=== PATIENT | female | born 1945 | race Caucasian/White ===

== ENCOUNTER → 2018-09-06 12:20 | Outpatient (CLI) | payer MEDICARE, SELFPAY ==
--- NOTE | 2018-09-06 12:34 | BI_ITS ---
MAMMOGRAPHY - BILATERAL SCREENING REASON FOR EXAM: Female, 73 years old. Routine annual screening examination. PERTINENT HISTORY: Sister with breast cancer. TECHNIQUE: Digital bilateral breast cody (3D mammographic acquisition) in the CC and MLO projections. 2-D mediolateral oblique (MLO) and craniocaudad (CC) views of both breasts were obtained. CAD: Full Field Digital Mammography with Computer Added Detection was performed. COMPARISON: Comparison is made with prior study dated June 16, 2016 and May 21, 2015. FINDINGS: Breast Composition: There are scattered areas of fibroglandular density. There are no dominant masses or suspicious calcifications. Stable small bilateral benign appearing axillary lymph nodes. No other significant abnormalities are identified. There has been no significant change since the prior study. BI/SCREENING MAMM (CAD), BILAT IMPRESSION: Stable bilateral screening mammogram. Yearly follow-up mammogram recommended. (A) ASSESSMENT CATEGORY: BIRADS Category 2: Benign. A letter regarding these results will be sent to the patient by the facility within 30 days. Approximately 10% of breast cancers are not detected by mammography. A normal mammogram should not delay biopsy of a clinically suspicious abnormality. [id number] Electronically Signed: Biju Ovalle, at 15:07 EDT , Service support ,
== END ==
PROVIDERS: Family Provider Family Medicine; PCP Family Medicine; Referring Provider Family Medicine; Visit Provider Family Medicine
DX: Z12.31 Encounter for screening mammogram for malignant neoplasm of breast (principal)
CPT/HCPCS: 77063; 77067

== ENCOUNTER → 2019-02-02 11:02 | Outpatient (CLI) | payer MEDICARE, SELFPAY ==
[2019-02-02 13:09] LABS: AST(SGOT) 17 U/L (15-37); Alanine Aminotransfer ALT/SGPT 16 U/L (13-56); Cholesterol 184 mg/dL (200); High Density Lipoprotein 63 mg/dL; T4 Total, Thyroxin 11.5 ug/dL (4.8-13.9); Thyroid Stim Hormone (TSH) 1.79 uIU/mL (0.358-3.74); Triglycerides 124 mg/dL; Very Low Density Lipoprotein 25 mg/dL (5-40)
[2019-02-02 16:28] LABS: Hepatitis C Antibody Non-Reactive (Nonreactive)
== END ==
PROVIDERS: Family Provider Family Medicine; PCP Family Medicine; Referring Provider Family Medicine; Visit Provider Family Medicine
DX: E03.9 Hypothyroidism, unspecified (principal); E78.00 Pure hypercholesterolemia, unspecified
CPT/HCPCS: 36415; 80061; 84436; 84443; 84450; 84460; 86803

== ENCOUNTER → 2020-02-05 | Outpatient (CLI) | payer MEDICARE, SELFPAY ==
[2016-09-28 07:43] VITALS: BMI 27.6
[2020-02-05 13:43] LABS: AST(SGOT) 17 U/L (15-37); Alanine Aminotransfer ALT/SGPT 13 U/L (13-56); Cholesterol 182 mg/dL (200); High Density Lipoprotein 62 mg/dL; T4 Total, Thyroxin 10.2 ug/dL (4.8-13.9); Thyroid Stim Hormone (TSH) 1.62 uIU/mL (0.358-3.74); Triglycerides 163 mg/dL; Very Low Density Lipoprotein 33 mg/dL (5-40)
== END | disposition home or self-care (01) ==
LOC: MFPLAB 11:11
PROVIDERS: PCP Family Medicine; Referring Provider Family Medicine; Visit Provider Family Medicine
DX: E03.9 Hypothyroidism, unspecified (principal); E78.00 Pure hypercholesterolemia, unspecified
CPT/HCPCS: 36415; 80061; 84436; 84443; 84450; 84460

== ENCOUNTER → 2020-02-23 | Outpatient (CLI) | payer MEDICARE, SELFPAY ==
--- NOTE | 2020-02-23 11:01 | BI_ITS ---
MAMMOGRAPHY - BILATERAL SCREENING REASON FOR EXAM: Female, 74 years old. Routine annual screening examination. PERTINENT HISTORY: Sister with breast cancer. TECHNIQUE: Digital bilateral breast dian (3D mammographic acquisition) in the CC and MLO projections. 2-D mediolateral oblique (MLO) and craniocaudad (CC) views of both breasts were obtained. CAD: Full Field Digital Mammography with Computer Added Detection was performed. COMPARISON: Comparison is made with prior study dated 09/06/2018 and 06/16/2016. FINDINGS: Breast Composition: There are scattered areas of fibroglandular density. There are no dominant masses or suspicious calcifications. Stable benign-appearing small bilateral axillary lymph nodes. No other significant abnormalities are identified. There has been no significant change since the prior study. BI/SCREEN MAMM (CAD) W/DIAN BILAT IMPRESSION: Stable bilateral screening mammogram. Yearly follow-up mammogram recommended. (A) ASSESSMENT CATEGORY: BIRADS Category 2: Benign. A letter regarding these results will be sent to the patient by the facility within 30 days. Approximately 10% of breast cancers are not detected by mammography. A normal mammogram should not delay biopsy of a clinically suspicious abnormality. [id number] Electronically Signed: Biju Ovalle, at 9:35 EDT , Service support ,
== END | disposition home or self-care (01) ==
LOC: OPBI 10:59
PROVIDERS: PCP Family Medicine; Referring Provider Family Medicine; Visit Provider Family Medicine
DX: Z12.31 Encounter for screening mammogram for malignant neoplasm of breast (principal)
CPT/HCPCS: 77063; 77067

== ENCOUNTER → 2020-09-30 | Outpatient (CLI) | payer MEDICARE, SELFPAY ==
[2016-09-28 07:43] VITALS: BMI 27.6
== END | disposition home or self-care (01) ==
PROVIDERS: PCP Family Medicine; Referring Provider Family Medicine; Visit Provider Family Medicine
DX: N89.8 Other specified noninflammatory disorders of vagina (principal)
CPT/HCPCS: 87070; 87205

== ENCOUNTER 2020-11-08 12:17 | Emergency (ER) | payer MEDICARE, SELFPAY ==
[2020-11-08 12:18] VITALS: BP 162/83; PULSE 85; RESP 19; TEMP 37.1; O2SAT 97; BMI 27.6
--- NOTE | 2020-11-08 12:39 | EKG12_ITS ---
Test Reason : CP Blood Pressure : / mmHG Vent. Rate : 064 BPM Atrial Rate : 064 BPM P-R Int : 154 ms QRS Dur : 082 ms QT Int : 396 ms P-R-T Axes : 046 -15 036 degrees QTc Int : 408 ms Sinus rhythm with marked sinus arrhythmia Minimal voltage criteria for LVH, may be normal variant Borderline ECG Confirmed by EDWAR HELTON, MITCHELL ([id number]), science editor GABRIEL HOLLIDAY ([id number]) on 11/12/2020 1:50:20 PM Referred By: GARY Confirmed By:MITCHELL VANN MD
--- NOTE | 2020-11-08 12:39 | RAD_ITS ---
HISTORY: chest pain EXAMINATION/TECHNIQUE: XR Chest 1 View: Portable upright AP chest x-ray COMPARISON: None FINDINGS: LINES/DEVICES: None. LUNGS: Low lung volumes with linear opacities left lung base. No consolidation, vascular congestion or pleural effusion. MEDIASTINUM AND CARDIOVASCULAR STRUCTURES: Cardiac silhouette not enlarged. Central airways and mediastinal contour are unremarkable. BONES AND SOFT TISSUES: No acute bony abnormalities. RAD/Chest 1 View (Portable) IMPRESSION: Left basilar subsegmental atelectasis and/or fibrosis. No radiographic evidence of acute cardiopulmonary disease. at 1347 Reported and signed by: Nito Landers MD Electronically Signed: Nito Landers MD at 13:46 EDT Tel , Service support ,
[2020-11-08 12:55] LABS: Absolute Lymphocyte Count 2.46 X10^3/uL (0.83-4.51); Absolute Neutrophil Count 3.6 X10^3/uL (2.0-7.7); Basophil# 0.05 X10^3/uL; Basophil% 0.7 % (0-1); Eosinophil# 0.18 X10^3/uL; Eosinophils% 2.6 % (0-5); Hematocrit 42.6 % (37-47); Hemoglobin 13.2 g/dL (12.0-15.0); Lymphocyte # 2.46 X10^3/ul (0.83-4.51); Lymphocyte % 35.2 % (19-41); Mean Corpuscular Volume 83.9 fL (81-99); Mean Platelet Vol. 10.7 fl (6.2-12.0); Monocyte# 0.62 X10^3/uL; Monocyte% 8.9 % (0-10); NRBC Flagged by Analyzer 0 % (0-5); Neutrophil # 3.64 X10^3/uL (2.7-7.7); Neutrophil % 52.2 % (47-70); Platelet Count 373 K/mm3 (150-450); RBC Distribution Width CV 15.5 % (11.6-14.6); RBC Distribution Width SD 47.1 fl (35.1-43.9); Red Blood Count 5.08 M/mm3 (4.2-5.4)
[2020-11-08 13:06] LABS: Anion Gap 7 (5-15); BUN 15 mg/dL (7-18); BUN/Creat Ratio 16.7 RATIO (10-20); Calcium,Total 8.9 mg/dL (8.5-10.1); Chloride 108 mmol/L (98-107); EST Glomerular Filtration Rate 65 mL/min (>60); Est Glom Filt Rate - Afr Amer 79 mL/min (>60); Estimated Creatinine Clearance 53.33 ml/min; Glucose 93 mg/dL (74-106); Potassium 3.8 mmol/L (3.5-5.1); Sodium Level 140 mmol/L (136-145); Troponin-I HS < 3.0 pg/mL (3.0-53.7)
--- NOTE | 2020-11-08 13:09 | EDS_ITS ---
HPI History of Present Illness Chief Complaint: Chest Pain Informant: patient Narrative Narrative: Patient is a 75-year-old female with a past medical history of hypothyroidism, hyperlipidemia who presents to the emergency department for an episode of chest pain. She states that she was cleaning strawberries at her kitchen sink whenever she developed bilateral neck pain. She had a substernal chest pain associated with this. She felt very nauseous at the time. The episode lasted for maybe 15 seconds. She did not think much of it until it recurred a few more times over the next 15 minutes. She is never had this happen before in the past. She is currently asymptomatic. No associated shortness of breath. She denies any personal history of CAD, DVT/PE. She denies any abdominal pain. No back pain associated with this. No weakness or loss of sensation in any of her extremities. No headache or vision changes. She is not on any blood thinning medications. She denies any leg swelling or calf pain. No smoking history. [facility] Medical History (Updated 11/08/20 @ 15:[address] Scot Santiago DO) High cholesterol Hypothyroid Home Medications diazepam 2 mg PO TID PRN PRN #10 tablet 09/28/16 [Rx Last Taken Unknown] levothyroxine 50 mcg PO DAILY 09/28/16 [History Last Taken 09/27/16] simvastatin 10 mg PO DAILY 09/28/16 [History Last Taken 09/27/16] sumatriptan succinate 50 mg PO PRN PRN 09/28/16 [History Last Taken 09/27/16] aspirin 81 mg PO DAILY 11/08/20 [History Last Taken Unknown] Allergy/AdvReac Type Severity Reaction Status Date / Time No Known Allergies Allergy Verified 09/28/16 07:42 Social History Smoking Status: Never smoker ROS ROS ED Constitutional Constitutional ED: Denies chills or fever(s) Eyes Eyes: Denies change in vision ENT ENT ED: Denies epistaxis or rhinorrhea Cardiovascular Cardiovascular: Reports chest pain; Denies palpitations Respiratory/Chest Respiratory/Chest: Denies cough, dyspnea or dyspnea on exertion Gastrointestinal Gastrointestinal: Reports nausea; Denies abdominal pain, diarrhea or vomiting Genitourinary Genitourinary ED: Denies dysuria, hematuria or urinary frequency Musculoskeletal Musculoskeletal: Denies back pain Integumentary Denies rash Neurologic Neurologic: Denies dizziness, headache(s) or weakness EXAM Physical Exam Const Vital Signs: 11/08/20 12:18 11/08/20 13:35 11/08/20 14:56 Temperature 98.8 F Temperature Source Oral Pulse Rate 85 57 L 58 L Respiratory Rate 19 H 15 15 Respiratory Effort Normal Blood Pressure 162/83 H 113/94 H 137/69 H Blood Pressure Mean 109 100 91 Pulse Ox 97 97 97 Oxygen Delivery Method Room Air Room Air Room Air Positive well nourished and well developed General Appearance ED: well developed and NAD HEENT Reports normocephalic, head/scalp atraumatic and moist mucous membranes Eyes PERRL and EOMs intact bilaterally Neck supple General: Negative for tenderness Chest Wall inspection of chest normal Resp normal respiratory effort and clear to auscultation bilaterally Auscultation: Negative for rales, rhonchi or wheezes Cardio regular rate, regular rhythm and no murmurs GI normal to inspection, nondistended, normoactive bowel sounds and non-tender Palpation: soft; Negative for guarding or rebound tenderness present Back/Spine no CVA tenderness Extremity normal to inspection General Extremety ED: Negative for edema or tenderness General Extremity: Negative for edema Neuro oriented x3, CN's II-XII intact bilaterally and no sensory deficits noted Sensorium / Orientation: alert Motor Exam: strength 5/5 throughout Psych mental status grossly normal Skin no rashes or lesions noted Heart Score History: Slightly/Non-Suspicious ECG: Normal Age: >/= 65 years Risk Factors: 1 or 2 Risk Factors Troponin: </= Normal Limit Score: 3 MDM MDM MDM Narrative Medical decision making narrative: Patient presents to the emergency department for periodic episodes of chest pain over 15 minutes. She is completely asymptomatic at time of arrival to the ED. Vital signs within normal limits. She is a benign physical exam. Low concern for PE as she is negative PERC and no risk factors. EKG, chest x-ray basic lab work being obtained. Patient's lab work is returning. She is not anemic. She does not have a high white blood cell count. Her high-sensitivity troponin is negative. She has a heart score of 3. Repeat troponin was obtained and did not have any significant elevation. This time she is stable for discharge. Low concern for ACS. Low concern for any catastrophe. She has been resting comfortably throughout ED stay. She is to contact her PCP Tuesday morning for follow-up. She notes any worsening symptoms or persistent symptoms she needs to come back to the ED for reevaluation. This was all discussed with her. She understands and is agreeable this plan. Lab Data Labs: Laboratory Results - last 24 hr 11/08/20 11/08/20 11/08/20 12:20 12:20 14:40 WBC 7.0 RBC 5.08 Hgb 13.2 Hct 42.6 MCV 83.9 MCH 26.0 L MCHC 31.0 L RDW Std Deviation 47.1 H RDW Coeff of Baudilio 15.5 H Plt Count 373 MPV 10.7 Immature Gran % (Auto) 0.400 Neut % (Auto) 52.2 Lymph % (Auto) 35.2 Mckinley % (Auto) 8.9 Eos % (Auto) 2.6 Baso % (Auto) 0.7 Absolute Neuts (auto) 3.6 Absolute Lymphs (auto) 2.46 Nucleated RBC % 0 Sodium 140 Potassium 3.8 Chloride 108 H Carbon Dioxide 25.0 Anion Gap 7 BUN 15 Creatinine 0.90 Estim Creat Clear Calc 53.33 Est GFR (MDRD) Af Amer 79 Est GFR (MDRD) Non-Af 65 BUN/Creatinine Ratio 16.7 Glucose 93 Calcium 8.9 Troponin I High Sens < 3.0 L 3.2 Radiography Chest X-Ray - ED: 1 View (Single view portable x-ray interpreted by myself. Poor inspiratory effort. No obvious consolidation. Normal cardiac silhouette. Normal mediastinum. No pleural effusion noted.) Diagnostic Testing: Radiology Impression Chest X-Ray 11/08/20 12:39 IMPRESSION: Left basilar subsegmental atelectasis and/or fibrosis. No radiographic evidence of acute cardiopulmonary disease. at 1347 Reported and signed by: Nito Landers MD Electronically Signed: Nito Landers MD at 13:46 EDT Tel , Service support , EKG Initial EKG: Attestation: I personally reviewed and interpreted this EKG as follows: (Rate of 64 bpm and normal sinus rhythm. Normal intervals. Left axis deviation. No significant ST elevations or depressions. No T wave abnormalities.) Discharge Plan Triage Chief Complaint: Chest Pain ED Provider: Scot Santiago Dx/Rx/DC Orders Clinical Impression: Chest pain Instructions: ED Chest Pain, Noncardiac Prescriptions: No Action simvastatin 10 MG tablet 10 mg PO DAILY RF: 0 sumatriptan succinate 50 MG tablet 50 mg PO PRN PRN (Reason: Headache) RF: 0 levothyroxine 50 MCG tablet 50 mcg PO DAILY RF: 0 diazepam 2 MG tablet 2 mg PO TID PRN PRN (Reason: Vertigo) Qty: 10 RF: 0 aspirin 81 mg Tablet 81 mg PO DAILY RF: 0 Primary Care Provider: Petty Garza Referrals: Petty Garza MD [Primary Care Provider] - 2 Days Disposition Disposition: Home, Self Care
[2020-11-08 13:35] VITALS: BP 113/94; PULSE 57; RESP 15; O2SAT 97
[2020-11-08 14:56] VITALS: BP 137/69; PULSE 58; RESP 15; O2SAT 97
[2020-11-08 15:02] LABS: Troponin-I HS 3.2 pg/mL (3.0-53.7)
[2020-11-08 15:21] VITALS: BP 128/68; PULSE 74; RESP 15; O2SAT 99
== END 2020-11-08 15:22 | disposition home or self-care (01) ==
PROVIDERS: Emergency Provider Emergency Medicine; PCP Family Medicine
DX: R07.9 Chest pain, unspecified (principal); E03.9 Hypothyroidism, unspecified; E78.5 Hyperlipidemia, unspecified; Z79.899 Other long term (current) drug therapy
CPT/HCPCS: 36415; 71045; 80048; 84484; 85025; 93005; 99283

== ENCOUNTER → 2021-01-07 | Outpatient (CLI) | payer MEDICARE, SELFPAY ==
--- NOTE | 2021-01-07 15:15 | VUL_PTH ---
PATIENT: EDWIN DICKERSON LOC: [facility] U#:[id number] AGE/SX: 75/F ROOM: RE01/07/[address]: Dr. Owen Mathew MD : [id number] BED: DIS: 01/07/2021 SPEC #: [id number] RECD: 01/07/21 16:54 STATUS: ILDEFONSO RIVERA #: [id number] LUPE: 01/07/21 15:[address]: Owen Mathew DEPT: SURGICAL PATHOLOGY RECD BY: Hector Angel ENTERED: 01/08/21 09:57 SP TYPE: VULVA BX OTHR DR: Dr. Petty Garza MD Tissues: A - Vulva, NOS B - Vulva, NOS Procedures: Surgery Specimen Level IV HEADER OPERATION: Bilateral vulvar lesion excision PRE-OP DIAGNOSIS: N90.89 TISSUE SUBMITTED: A ? Right vulvar lesion, B ? Left vulvar lesion MICROSCOPIC DIAGNOSIS A. Right vulvar lesion, biopsy: Consistent with lichen sclerosus. Hyperkeratosis. B. Left vulvar lesion, biopsy: Consistent with lichen sclerosus. Hyperkeratosis. LUDY:chalino 01/09/2021 MICROSCOPIC DESCRIPTION Slides are reviewed. GROSS DESCRIPTION A - Received in fixative is one container labeled with the patient's name and designated right side vulvar lesion. The specimen consists of a fragment of de luna soft tissue measuring 0.3 x 0.2 x 0.1 cm. The specimen is totally submitted in one cassette. B - Received in fixative is one container labeled with the patient's name and designated left side vulvar lesion. The specimen consists of two irregular fragments of de luna soft tissue that in aggregate measure 1 x 0.2 x 0.1 cm. The specimen is totally submitted in one cassette. / LUDY:chalino 01/08/21 TC:5 CPT: 73736 x2
== END | disposition home or self-care (01) ==
LOC: LABSPEC 15:47
PROVIDERS: PCP Family Medicine; Visit Provider Obstetrics & Gynecology
DX: N90.89 Other specified noninflammatory disorders of vulva and perineum (principal)
CPT/HCPCS: 88305

== ENCOUNTER → 2021-02-09 14:34 | Outpatient (CLI) | payer MEDICARE, SELFPAY ==
[2021-02-09 18:32] LABS: AST(SGOT) 20 U/L (15-37); Alanine Aminotransfer ALT/SGPT 23 U/L (13-56); Cholesterol 186 mg/dL (200); High Density Lipoprotein 63 mg/dL; T4 Total, Thyroxin 9.3 ug/dL (4.8-13.9); Thyroid Stim Hormone (TSH) 1.89 uIU/mL (0.358-3.74); Triglycerides 154 mg/dL; Very Low Density Lipoprotein 31 mg/dL (5-40)
== END ==
PROVIDERS: PCP Family Medicine; Referring Provider Family Medicine; Visit Provider Family Medicine
DX: E78.00 Pure hypercholesterolemia, unspecified (principal); E03.9 Hypothyroidism, unspecified
CPT/HCPCS: 36415; 80061; 84436; 84443; 84450; 84460

== ENCOUNTER → 2021-03-04 15:35 | Outpatient (CLI) | payer MEDICARE, SELFPAY ==
--- NOTE | 2021-03-04 15:36 | BI_ITS ---
MAMMOGRAPHY - BILATERAL SCREENING REASON FOR EXAM: Female, 75 years old. Routine annual screening examination. PERTINENT HISTORY: Sister with breast cancer. TECHNIQUE: Digital bilateral breast dian (3D mammographic acquisition) in the CC and MLO projections. 2-D mediolateral oblique (MLO) and craniocaudad (CC) views of both breasts were obtained. CAD: Full Field Digital Mammography with Computer Added Detection was performed. COMPARISON: Comparison is made with prior study 02/23/2020 and 09/06/2018. FINDINGS: Breast Composition: The breasts are almost entirely fatty. There are no dominant masses or suspicious calcifications. Stable benign-appearing bilateral axillary lymph nodes. No other significant abnormalities are identified. There has been no significant change since the prior study. BI/SCRN MAMM (CAD)W/DIAN BILAT IMPRESSION: Stable bilateral screening mammogram. Yearly follow-up mammogram recommended. (A) ASSESSMENT CATEGORY: BIRADS Category 2: Benign. A letter regarding these results will be sent to the patient by the facility within 30 days. Approximately 10% of breast cancers are not detected by mammography. A normal mammogram should not delay biopsy of a clinically suspicious abnormality. [id number] Electronically Signed: Biju Ovalle MD at 8:13 EDT , Service support ,
== END ==
PROVIDERS: PCP Family Medicine; Referring Provider Family Medicine; Visit Provider Family Medicine
DX: Z12.31 Encounter for screening mammogram for malignant neoplasm of breast (principal)
CPT/HCPCS: 77063; 77067

== ENCOUNTER → 2021-03-13 | Outpatient (CLI) | payer MEDICARE, SELFPAY | END | disposition home or self-care (01) | PROVIDERS: PCP Family Medicine; Referring Provider Nurse Practitioner Family; Visit Provider Nurse Practitioner Family | DX: J06.9 Acute upper respiratory infection, unspecified (principal) | CPT/HCPCS: 87633; 87635; U0005; U0003 ==

== ENCOUNTER → 2021-10-27 | Outpatient (CLI) | payer MEDICARE, SELFPAY ==
--- NOTE | 2021-10-27 11:30 | RAD_ITS ---
STUDY: X-RAY - RIGHT KNEE REASON FOR EXAM: Female, 76 years old. Knee pain. TECHNIQUE: 4 view(s) of the knee. COMPARISON: None. FINDINGS: Osteopenia. Moderate medial compartmental arthrosis with osteophyte formation. Mild lateral compartmental arthrosis with small osteophytes. Moderate arthrosis of the patellofemoral compartment with osteophyte formation. Small joint effusion with multiple intra-articular osteochondral bodies project posteriorly on the lateral view. RAD/Knee 4 or More Views IMPRESSION: Osteopenia with tricompartmental arthrosis, joint effusion and intra-articular osteochondral bodies as described. No acute abnormality, chondrocalcinosis or erosive changes. Electronically Signed: Abhijit Tobias MD at 9:44 EDT ,
== END | disposition home or self-care (01) ==
PROVIDERS: PCP Family Medicine; Referring Provider Family Medicine; Visit Provider Family Medicine
DX: M25.561 Pain in right knee (principal)
CPT/HCPCS: 73564

== ENCOUNTER → 2022-02-10 | Outpatient (CLI) | payer MEDICARE, SELFPAY ==
[2022-02-10 18:00] LABS: AST(SGOT) 18 U/L (15-37); Alanine Aminotransfer ALT/SGPT 16 U/L (13-56); Cholesterol 185 mg/dL (200); High Density Lipoprotein 62 mg/dL; T4 Total, Thyroxin 10.2 ug/dL (4.8-13.9); Thyroid Stim Hormone (TSH) 1.97 uIU/mL (0.358-3.74); Triglycerides 158 mg/dL; Very Low Density Lipoprotein 32 mg/dL (5-40)
== END | disposition home or self-care (01) ==
LOC: MFPLAB 14:50
PROVIDERS: PCP Family Medicine; Referring Provider Family Medicine; Visit Provider Family Medicine
DX: E03.9 Hypothyroidism, unspecified (principal); E78.00 Pure hypercholesterolemia, unspecified
CPT/HCPCS: 36415; 80061; 84436; 84443; 84450; 84460

== ENCOUNTER → 2022-03-17 | Outpatient (CLI) | payer MEDICARE, SELFPAY ==
--- NOTE | 2022-03-17 13:12 | BI_ITS ---
MAMMOGRAPHY - BILATERAL SCREENING REASON FOR EXAM: Female, 76 years old. Routine annual screening examination. PERTINENT HISTORY: Sister with breast cancer. TECHNIQUE: Digital bilateral breast dian (3D mammographic acquisition) in the CC and MLO projections. 2-D mediolateral oblique (MLO) and craniocaudad (CC) views of both breasts were obtained. CAD: Full Field Digital Mammography with Computer Added Detection was performed. COMPARISON: Comparison is made with prior study dated 03/04/2021 and 02/23/2020. FINDINGS: Breast Composition: The breasts are almost entirely fatty. There are no dominant masses or suspicious calcifications. Stable small benign-appearing bilateral axillary lymph nodes. No other significant abnormalities are identified. There has been no significant change since the prior study. BI/SCRN MAMM (CAD)W/DIAN BILAT IMPRESSION: Stable bilateral screening mammogram. Yearly follow-up mammogram recommended. (A) ASSESSMENT CATEGORY: BIRADS Category 2: Benign. A letter regarding these results will be sent to the patient by the facility within 30 days. Approximately 10% of breast cancers are not detected by mammography. A normal mammogram should not delay biopsy of a clinically suspicious abnormality. [id number] Electronically Signed: Biju Ovalle MD at 13:55 EST ,
== END | disposition home or self-care (01) ==
LOC: OPBI 13:11
PROVIDERS: PCP Family Medicine; Visit Provider Family Medicine
DX: Z12.31 Encounter for screening mammogram for malignant neoplasm of breast (principal); Z80.3 Family history of malignant neoplasm of breast
CPT/HCPCS: 77063; 77067

== ENCOUNTER → 2023-02-14 | Outpatient (CLI) | payer MEDICARE, SELFPAY ==
[2023-02-14 18:26] LABS: Vitamin D,25 Hydroxy 16.4 ng/mL
[2023-02-14 18:34] LABS: AST(SGOT) 10 U/L (15-37); Alanine Aminotransfer ALT/SGPT 16 U/L (13-56); Cholesterol 198 mg/dL (200); High Density Lipoprotein 65 mg/dL; T4 Total, Thyroxin 10.6 ug/dL (4.8-13.9); Thyroid Stim Hormone (TSH) 2.29 uIU/mL (0.358-3.74); Triglycerides 130 mg/dL; Very Low Density Lipoprotein 26 mg/dL (5-40)
== END | disposition home or self-care (01) ==
PROVIDERS: PCP Family Medicine; Referring Provider Family Medicine; Visit Provider Family Medicine
DX: E03.9 Hypothyroidism, unspecified (principal); E78.00 Pure hypercholesterolemia, unspecified; E55.9 Vitamin D deficiency, unspecified
CPT/HCPCS: 36415; 80061; 82306; 84436; 84443; 84450; 84460

== ENCOUNTER → 2023-03-23 | Outpatient (CLI) | payer MEDICARE, SELFPAY ==
--- NOTE | 2023-03-23 12:50 | BI_ITS ---
MAMMOGRAPHY - BILATERAL SCREENING REASON FOR EXAM: Female, 77 years old. Routine annual screening examination. PERTINENT HISTORY: Sister with breast cancer. TECHNIQUE: Digital bilateral breast dian (3D mammographic acquisition) in the CC and MLO projections. 2-D mediolateral oblique (MLO) and craniocaudad (CC) views of both breasts were obtained. CAD: Full Field Digital Mammography with Computer Added Detection was performed. COMPARISON: Comparison is made with prior study dated March 17, 2022 and March 04, 2021. FINDINGS: Breast Composition: The breasts are almost entirely fatty. There are no dominant masses or suspicious calcifications. Stable small benign-appearing bilateral axillary lymph nodes. No other significant abnormalities are identified. There has been no significant change since the prior study. BI/SCRN MAMM (CAD)W/DIAN BILAT IMPRESSION: Stable bilateral screening mammogram. Yearly follow-up mammogram recommended. (A) ASSESSMENT CATEGORY: BIRADS Category 2: Benign. A letter regarding these results will be sent to the patient by the facility within 30 days. Approximately 10% of breast cancers are not detected by mammography. A normal mammogram should not delay biopsy of a clinically suspicious abnormality. [id number] Electronically Signed: Biju Ovalle MD at 13:55 EST ,
== END | disposition home or self-care (01) ==
LOC: OPBI 12:49
PROVIDERS: PCP Family Medicine; Referring Provider Family Medicine; Visit Provider Family Medicine
DX: Z12.31 Encounter for screening mammogram for malignant neoplasm of breast (principal); Z80.3 Family history of malignant neoplasm of breast
CPT/HCPCS: 77063; 77067

== ENCOUNTER → 2023-05-19 | Outpatient (CLI) | payer MEDICARE, SELFPAY ==
--- NOTE | 2023-05-19 12:47 | CT_ITS ---
PROCEDURE: CT RIGHT KNEE WITHOUT CONTRAST REASON FOR EXAM: Female, 78 years old. Preoperative planning for the [employer] Robotic knee surgery. Knee pain. TECHNIQUE: Transaxial CT of the hip, knee and ankle were obtained. Coronal and sagittal reconstruction images of the knee were provided. Individualized dose optimization techniques were used for this CT. COMPARISON: Knee x-rays dated October 27, 2021. FINDINGS: Standard protocol for the preoperative planning for the [employer] robotic knee surgery was performed. Mild arthrosis of the hip, moderate tricompartmental arthrosis of the knee and mild arthrosis of the tibiotalar joint. CT/Extremity Lower without Contra IMPRESSION: Preoperative [employer] Robotic knee surgical CT evaluation with findings as described above. Electronically Signed: Abhijit Tobias MD at 9:43 EST ,
--- NOTE | 2023-05-19 12:48 | EKG12_ITS ---
Test Reason : PRE OP Blood Pressure : / mmHG Vent. Rate : 078 BPM Atrial Rate : 078 BPM P-R Int : 144 ms QRS Dur : 074 ms QT Int : 404 ms P-R-T Axes : 062 -02 -16 degrees QTc Int : 460 ms Normal sinus rhythm Normal ECG Confirmed by [place] HELTON, ANAT ([id number]), news assignment editor JOE CUETO ([id number]) on 05/20/2023 7:22:09 AM Referred By: Lázaro Solitario Confirmed By:ANAT BOYLE MD
[2023-05-19 13:45] LABS: Absolute Lymphocyte Count 2.03 X10^3/uL (0.83-4.51); Absolute Neutrophil Count 4.8 X10^3/uL (2.0-7.7); Basophil# 0.07 X10^3/uL; Basophil% 0.9 % (0-1); Eosinophil# 0.23 X10^3/uL; Eosinophils% 2.9 % (0-5); Hematocrit 38.7 % (37-47); Hemoglobin 12.1 g/dL (12.0-15.0); Lymphocyte # 2.03 X10^3/ul (0.83-4.51); Lymphocyte % 25.3 % (19-41); Mean Corp Hgb Conc 31.3 g/dL (32-36); Mean Corpuscular Hgb 26.4 pg (27.0-32.0); Mean Corpuscular Volume 84.3 fL (81-99); Mean Platelet Vol. 10.5 fl (6.2-12.0); Monocyte# 0.84 X10^3/uL; Monocyte% 10.5 % (0-10); NRBC Flagged by Analyzer 0 % (0-5); Neutrophil # 4.81 X10^3/uL (2.7-7.7); Platelet Count 394 K/mm3 (150-450); RBC Distribution Width CV 15.3 % (11.6-14.6); RBC Distribution Width SD 46.5 fl (35.1-43.9); Red Blood Count 4.59 M/mm3 (4.2-5.4)
[2023-05-19 14:07] LABS: Albumin, Serum 3.2 g/dL (3.2-5.0); Anion Gap 5 (5-15); BUN 14 mg/dL (7-18); BUN/Creat Ratio 16.4 RATIO (10-20); Calcium,Total 9.2 mg/dL (8.5-10.1); Chloride 110 mmol/L (98-107); Creatinine, Serum 0.86 mg/dL (0.55-1.02); EST Glomerular Filtration Rate 69 mL/min (>60); Est Glom Filt Rate - Afr Amer 83 mL/min (>60); Glucose 92 mg/dL (74-106); Potassium 4.2 mmol/L (3.5-5.1); Sodium Level 141 mmol/L (136-145)
== END | disposition home or self-care (01) ==
LOC: CT 12:45
PROVIDERS: PCP Family Medicine; Referring Provider Specialist; Visit Provider Specialist
DX: Z01.818 Encounter for other preprocedural examination (principal); Z01.810 Encounter for preprocedural cardiovascular examination; M17.11 Unilateral primary osteoarthritis, right knee; E78.00 Pure hypercholesterolemia, unspecified; E07.9 Disorder of thyroid, unspecified
CPT/HCPCS: 36415; 73700; 80048; 82040; 85025; 93005

== ENCOUNTER 2023-06-24 08:51 | Emergency (ER) | payer MEDICARE, SELFPAY ==
[2023-06-24 08:52] VITALS: BP 145/80; PULSE 90; RESP 18; TEMP 36.7; O2SAT 97
[2023-06-24 09:27] VITALS: BMI 27.7
--- NOTE | 2023-06-24 09:39 | CT_ITS ---
STUDY: CT ABDOMEN AND PELVIS WITH CONTRAST REASON FOR EXAM: Female, 78 years old. Abdominal pain, constipation. Recent total knee replacement. RADIATION DOSAGE (If Supplied By Facility): CTDIvol = ( 15.08 ) mGy, DLP = ( 762.24 ) mGycm TECHNIQUE: Transaxial images were obtained from the dome of the diaphragm to the symphysis pubis without oral contrast. IV 100mL Isovue-300 was administered. Sagittal and coronal images were reconstructed. Individualized dose optimization techniques were used for this CT. COMPARISON: None. FINDINGS: Mild degree of the linear basilar atelectasis. The visualized portions of the heart are within normal limits. There is decreased attenuation of the liver consistent with steatosis. Mildly distended gallbladder. Minimal degree of central intrahepatic biliary duct dilatation. Normal spleen. Normal pancreas. Normal bilateral adrenal glands. Tiny nonobstructive intrarenal renal calculi in the lower pole of the right kidney. There is a 4.7 cm x 4.2 cm cyst in the upper pole of the left kidney. Left parapelvic renal cysts. Normal visualized stomach. Normal small intestine. There are multiple colonic diverticula consistent with diverticulosis. Large amount of fecal material is seen throughout the colon. Fluid and fecal material is seen in the right hemicolon. The appendix is visualized and appears normal. Normal abdominal aorta. Normal inferior vena cava. Normal retroperitoneum. Normal urinary bladder. Normal abdominal wall. There are diffuse degenerative changes of the visualized lumbar spine. CT/Abdomen/Pelvis W IV Cont ONLY IMPRESSION: Large amount of fecal material is seen throughout the colon. Distended gallbladder with the mild degree of the central intrahepatic biliary ductal dilatation. Correlation with ultrasound of the right upper quadrant recommended. Left renal cysts. Nonobstructive right intrarenal calculus. Electronically Signed: Biju Ovalle MD at 11:08 EST ,
--- NOTE | 2023-06-24 09:48 | ED.VIS.GI ---
HPI HPI - GI History of Present Illness Chief Complaint: Constipation Informant: patient Narrative Narrative: Patient is a 78-year-old female that is 8 days postop from elective right total knee arthroplasty performed by Dr. Solitario. Postoperatively she has been on opioid pain medicine as well as 2 doses of senna twice daily. She has not had a significant bowel movement since the surgery. She is complaining of increased abdominal cramping, discomfort and constipation. She started taking MiraLAX today as well with no results. She states a couple days ago she did pass some small hard balls of stool but is had nothing since. Denies any fever or chills. Did have an episode of vomiting after drinking the MiraLAX. Has not passed gas today but prior to that had been passing a lot of gas. Denies history of any abdominal surgeries. Denies any urinary symptoms. Denies any other complaints at this time. States her postoperative pain is well-controlled and is not having any acute knee pain. [facility] Medical History Glaucoma High cholesterol Hypothyroid Lichen sclerosus Home Medications levothyroxine 50 mcg tablet 50 mcg PO DAILY 09/28/16 [History Last Taken 09/27/16] simvastatin 10 mg tablet 10 mg PO DAILY 09/28/16 [History Last Taken 09/27/16] sumatriptan succinate 50 mg tablet 50 mg PO PRN PRN Headache 09/28/16 [History Last Taken 09/27/16] clobetasol 0.05 % topical ointment 1 applic topical .COMPLEX #15 grams 09/01/22 [Rx Last Taken Unknown] estradiol 0.01% (0.1 mg/gram) vaginal cream See Rx Instructions vaginal .COMPLEX #42.5 grams 09/01/22 [Rx Last Taken Unknown] latanoprost 0.005 % eye drops 1 drp ophthalmic (eye) DAILY 09/01/22 [History Last Taken Unknown] meloxicam 15 mg tablet 15 mg PO DAILY 09/01/22 [History Last Taken Unknown] dicyclomine 10 mg capsule 10 mg PO TID PRN abdominal pain #20 caps 06/24/23 [Rx Last Taken Unknown] famotidine 20 mg tablet 20 mg PO DAILY 06/24/23 [History Last Taken Unknown] lactulose 10 gram/15 mL (15 mL) oral solution 15 ml PO BID PRN constipation #600 mL 06/24/23 [Rx Last Taken Unknown] meloxicam 7.5 mg tablet 7.5 mg PO BID 06/24/23 [History Last Taken Unknown] Allergy/AdvReac Type Severity Reaction Status Date / Time Penicillins Allergy Intermediate Rash Verified 06/24/23 08:52 amoxicillin Allergy Mild Rash Verified 09/16/22 10:58 Family History Sister Breast cancer Mother CVA (cerebral vascular accident) Father Emphysema lung Brother CVA (cerebral vascular accident) Social History household members: spouse housing: house number of children: 0 current occupational status: retired Smoking Status: Never smoker alcohol intake: current alcohol intake frequency: holidays/special occasions only substance use type: does not use seatbelt use: always do you feel safe at home: Yes additional social history: - [place] No biological children- [facility] Constitutional Constitutional ED: Denies chills or fever(s) Cardiovascular Cardiovascular: Denies chest pain Respiratory/Chest Respiratory/Chest: Denies cough Gastrointestinal Gastrointestinal: Reports abdominal pain, constipation, nausea and vomiting; Denies melena Genitourinary Genitourinary ED: Denies dysuria or hematuria Musculoskeletal Musculoskeletal: Reports other Details: Recent right knee surgery ; Denies arthralgias or myalgias Integumentary Denies rash Neurologic Neurologic: Denies weakness Hematologic/Lymphatic Hematologic/Lymphatic: Denies easy bleeding or easy bruising EXAM Physical Exam Const Vital Signs: 06/24/23 08:52 06/24/23 11:00 06/24/23 15:43 Temperature 98.1 F 98 F Temperature Source Temporal Pulse Rate 90 87 Respiratory Rate 18 17 14 Blood Pressure 145/80 H 145/74 H Blood Pressure Mean 101 97 Pulse Ox 97 94 99 Oxygen Delivery Method Room Air Room Air Positive well nourished and well developed General Appearance ED: well developed and NAD HEENT Reports moist mucous membranes normocephalic and atraumatic Neck supple Resp normal respiratory effort and clear to auscultation bilaterally Cardio regular rate and regular rhythm GI GI Narrative: Mild diffuse abdominal discomfort. No stool in the rectal vault on rectal exam. Inspection: Negative for abdominal distention Auscultation: normoactive bowel sounds Palpation: soft; Negative for guarding or rigid Neuro Sensorium / Orientation: alert, oriented to person, oriented to place and oriented to time Motor Exam: Negative for general weakness Psych mental status grossly normal and thought process normal Skin no wounds MDM MDM MDM Narrative Medical decision making narrative: Patient is evaluated for constipation associate abdominal discomfort. She now had some vomiting. Is low risk for small bowel obstruction however there is no significant stool in the rectal vault on physical exam. Differential includes postoperative ileus, bowel obstruction, colitis and constipation. I will obtain CT of the abdomen pelvis, belly labs and give IV fluids, morphine and Zofran while workup is being obtained. Patient has a mild leukocytosis of 13.2 which is nonspecific. Urinalysis is not consistent with infection. CMP shows a mild elevation of her alkaline phosphatase but otherwise is largely normal. CT abdomen pelvis shows a large amount of fecal material seen throughout the colon with a distended gallbladder with mild degree of central intrahepatic biliary ductal dilation. Patient is evaluated and is having crampy diffuse abdominal pain but does not have pain in the right upper quadrant. Because of the elevated alkaline phosphatase will obtain right upper quadrant ultrasound. Gallbladder ultrasound shows distended gallbladder with minimally dilated central intrahepatic biliary ducts She again has no pain in the right upper quadrant on repeat abdominal exam. Patient is given a soapsuds enema (2 aliquots of 250 cc each). She continues to have crampy diffuse abdominal pain and minimal bowel movement. Is given dose of Bentyl to help with the cramping. Discussed admission for further bowel cleanout given her large stool burden and insufficient results. Patient is comfortable going home. Is encouraged return the emergency room should she have further concerns or progression of symptoms. Will start her on lactulose and have her continue taking her MiraLAX and Senokot. Counseled increasing fluid intake and trying to increase her mobility. Discussed that this constipation is likely associated with mixture of decreased activity from her recent surgery and her opioid pain medication. Lab Data Attestation: I reviewed the patient's lab results. Labs: Laboratory Results - last 24 hr 06/24/23 06/24/23 09:47 10:37 WBC 13.2 H RBC 4.22 Hgb 11.0 L Hct 34.3 L MCV 81.3 MCH 26.1 L MCHC 32.1 RDW Std Deviation 43.7 RDW Coeff of Baudilio 14.7 H Plt Count 556 H MPV 9.4 Immature Gran % (Auto) 0.800 Neut % (Auto) 81.9 H Lymph % (Auto) 8.7 L [place] % (Auto) 7.8 Eos % (Auto) 0.3 Baso % (Auto) 0.5 Absolute Neuts (auto) 10.8 H Absolute Lymphs (auto) 1.15 Nucleated RBC % 0 Sodium 138 Potassium 3.9 Chloride 107 Carbon Dioxide 23.0 Anion Gap 8 BUN 14 Creatinine 0.74 Estim Creat Clear Calc 62.90 Est GFR (MDRD) Af Amer 98 Est GFR (MDRD) Non-Af 81 BUN/Creatinine Ratio 18.9 Glucose 122 H Calcium 9.0 Total Bilirubin 0.90 AST 44 H ALT 38 Alkaline Phosphatase 247 H Total Protein 7.5 Albumin 2.6 L Globulin 4.9 H Albumin/Globulin Ratio 0.5 L Urine Color Yellow Urine Clarity Sl. Cloudy Urine pH 7.0 Ur Specific [place] 1.005 Urine Protein Negative Urine Glucose (UA) Normal Urine Ketones Negative Urine Occult Blood Negative Urine Nitrite Negative Urine Bilirubin Negative Urine Urobilinogen Normal Ur Leukocyte Esterase Negative Urine RBC 0-5 SEEN Urine WBC 0 SEEN Ur Squamous Epith Cells 0-5 SEEN Urine Bacteria 0 SEEN Urine Mucus 0 SEEN Radiography Diagnostic Testing: Clinical Impression(s) from Imaging Studies Abdomen/Pelvis CT 06/24/23 09:39 IMPRESSION: Large amount of fecal material is seen throughout the colon. Distended gallbladder with the mild degree of the central intrahepatic biliary ductal dilatation. Correlation with ultrasound of the right upper quadrant recommended. Left renal cysts. Nonobstructive right intrarenal calculus. Electronically Signed: Biju Ovalle MD at 11:08 EST , Gallbladder Ultrasound 06/24/23 11:46 IMPRESSION: Distended gallbladder. Minimally dilated central intrahepatic biliary ducts. Electronically Signed: Biju Ovalle MD at 12:50 EST , Discharge Plan Triage Chief Complaint: Constipation ED Provider: Jennifer Brown Dx/Rx/DC Orders Clinical Impression: Abdominal cramping, Constipation Instructions: ED Constipation (Adult) Prescriptions: New lactulose 10 gram/15 mL (15 mL) solution 15 ml PO BID PRN (Reason: constipation) Qty: 600 0RF dicyclomine 10 mg capsule 10 mg PO TID PRN (Reason: abdominal pain) Qty: 20 0RF No Action meloxicam 15 mg tablet 15 mg PO DAILY latanoprost 0.005 % drops 1 drp ophthalmic (eye) DAILY clobetasol 0.05 % ointment 1 applic topical .COMPLEX Qty: 15 3RF Rx Instructions: 1 applic topically rub in small amount daily X 2 weeks then prn; estradiol 0.01 % (0.1 mg/gram) cream See Rx Instructions vaginal .COMPLEX Qty: 42.5 2RF Rx Instructions: small amount as directed vaginal every other day X 4 weeks then twice a week; simvastatin 10 MG tablet 10 mg PO DAILY sumatriptan succinate 50 MG tablet 50 mg PO PRN PRN (Reason: Headache) levothyroxine 50 MCG tablet 50 mcg PO DAILY famotidine 20 mg tablet 20 mg PO DAILY meloxicam 7.5 mg tablet 7.5 mg PO BID Primary Care Provider: Petty Garza Referrals: Petty Garza MD [Primary Care Provider] - Activity Restrictions/Additional Instructions: Continue taking the 2 pills of Senokot twice a day as well as daily MiraLAX and add in the lactulose as needed for the constipation until you have a couple of good bowel movements. You can decrease your laxatives starting with the lactulose and then the Senokot. The Bentyl (dicyclomine) should help with the spasm/cramping of your abdomen. If you do not have results or develop worsening pain or develop fever or blood in your stool please return to the emergency room. Disposition Disposition: Home, Self Care Discharge Date/Time: 06/24/23 15:44
[2023-06-24] MEDS: Morphine 4 MG/ML Syringe IV ×2 (09:50→13:04)
[2023-06-24] MEDS: 0.9% Normal Saline (1000mL) 1,000 ML 1000 ML IV (09:50)
[2023-06-24] MEDS: Ondansetron 4 MG/2 ML Vial IV (09:50)
[2023-06-24 10:00] LABS: Absolute Lymphocyte Count 1.15 X10^3/uL (0.83-4.51); Absolute Neutrophil Count 10.8 X10^3/uL (2.0-7.7); Basophil# 0.06 X10^3/uL; Basophil% 0.5 % (0-1); Eosinophil# 0.04 X10^3/uL; Eosinophils% 0.3 % (0-5); Hematocrit 34.3 % (37-47); Lymphocyte # 1.15 X10^3/ul (0.83-4.51); Lymphocyte % 8.7 % (19-41); Mean Corp Hgb Conc 32.1 g/dL (32-36); Mean Corpuscular Hgb 26.1 pg (27.0-32.0); Mean Corpuscular Volume 81.3 fL (81-99); Mean Platelet Vol. 9.4 fl (6.2-12.0); Monocyte# 1.03 X10^3/uL; Monocyte% 7.8 % (0-10); NRBC Flagged by Analyzer 0 % (0-5); Neutrophil # 10.83 X10^3/uL (2.7-7.7); Neutrophil % 81.9 % (47-70); Platelet Count 556 K/mm3 (150-450); RBC Distribution Width CV 14.7 % (11.6-14.6); RBC Distribution Width SD 43.7 fl (35.1-43.9); Red Blood Count 4.22 M/mm3 (4.2-5.4); White Blood Count 13.2 K/mm3 (4.4-11.0)
[2023-06-24 10:14] LABS: ALB/GLOB Ratio 0.5 RATIO (0.9-2.4); AST(SGOT) 44 U/L (15-37); Alanine Aminotransfer ALT/SGPT 38 U/L (13-56); Albumin, Serum 2.6 g/dL (3.2-5.0); Alkaline Phosphatase 247 U/L (45-117); Anion Gap 8 (5-15); BUN 14 mg/dL (7-18); BUN/Creat Ratio 18.9 RATIO (10-20); Chloride 107 mmol/L (98-107); Creatinine, Serum 0.74 mg/dL (0.55-1.02); EST Glomerular Filtration Rate 81 mL/min (>60); Est Glom Filt Rate - Afr Amer 98 mL/min (>60); Globulin 4.9 g/dL (2.2-4.2); Glucose 122 mg/dL (74-106); Potassium 3.9 mmol/L (3.5-5.1); Protein, Total 7.5 g/dL (6.4-8.2); Sodium Level 138 mmol/L (136-145)
[2023-06-24 10:46] LABS: Bacteria 0 SEEN /hpf (None Seen); Mucous, Urine 0 SEEN /hpf (<or=2+); White Blood Cells 0 SEEN /hpf (0-5)
[2023-06-24 10:48] LABS: Color, Urine Yellow (Yellow); Glucose, Dipstick Normal (Normal); Ketone-Dipstick Negative (Negative); Leukocyte Esterase-Dipstick Negative /ul (Negative); Nitrite-Dipstick Negative (Negative); Occult Blood-Urine Negative /ul (Negative); Protein-Dipstick Negative (Negative); Specific Gravity, Urine 1.005 (1.002-1.030); Urine Bilirubin Dipstick Negative (Negative); Urine Clarity Sl. Cloudy (Clear); Urine Urobilinogen Normal (Normal)
[2023-06-24 10:58] LABS: Red Blood Cells-Urine 0-5 SEEN /hpf (0-5); Squamous Epithelial Cells - UA 0-5 SEEN /hpf (5-10)
[2023-06-24 11:00] VITALS: RESP 17; O2SAT 94
--- NOTE | 2023-06-24 11:46 | US_ITS ---
STUDY: ABDOMINAL ULTRASOUND - RIGHT UPPER QUADRANT REASON FOR VISIT: Female, [address], Distended gb TECHNIQUE: Ultrasound evaluation of the right upper quadrant was performed with real-time and static veras-scale imaging. TECHNICAL QUALITY: Adequate. COMPARISON: Comparison is made with prior CT scan done earlier today. FINDINGS: Liver: The liver measures 16.2 cm. There is normal echogenicity of the liver. Minimally dilated central intrahepatic biliary ducts. There is hepatic color flow. The direction of portal flow is hepatopetal. There is no demonstrated mass lesion. Gallbladder: There is a distended gallbladder. The gallbladder wall measures 1 mm. There is a negative sonographic Pineda''s sign. There is no pericholecystic fluid. There are no gallstones. Common Bile Duct (C.B.D.): The common bile duct measures 6 mm. Pancreas: Normal size of the head, body and tail of the pancreas. There is normal echogenicity of the pancreas. There is no demonstrated pancreatic mass or cyst. Pancreatic duct measures upper limits of normal at 3 mm. Right Kidney: Normal size of the right kidney. The right kidney measures 10 cm x 6.4 cm x 3.8 cm. Normal renal cortex. The right cortex measures 1.1 cm. There is no demonstrated renal mass or cyst. There is no right hydronephrosis. US/Gallbladder IMPRESSION: Distended gallbladder. Minimally dilated central intrahepatic biliary ducts. Electronically Signed: Biju Ovalle MD at 12:50 EST ,
[2023-06-24] MEDS: Dicyclomine 10 MG Capsule 20 MG PO (14:32)
[2023-06-24 15:43] VITALS: BP 145/74; PULSE 87; RESP 14; TEMP 36.6; O2SAT 99
== END 2023-06-24 15:44 | disposition home or self-care (01) ==
PROVIDERS: Emergency Provider Emergency Medicine; PCP Family Medicine; Visit Provider Emergency Medicine
DX: K59.00 Constipation, unspecified (principal); Z96.651 Presence of right artificial knee joint; K82.8 Other specified diseases of gallbladder; R11.10 Vomiting, unspecified; R74.8 Abnormal levels of other serum enzymes; E78.00 Pure hypercholesterolemia, unspecified; R10.9 Unspecified abdominal pain
CPT/HCPCS: 74177; 76705; 80053; 81001; 85025; 96361; 96374; 96375; 96376; 99285; J7030; Q9967; J2405

== ENCOUNTER 2023-06-29 16:31 | Observation (INO) | payer MEDICARE, SELFPAY ==
[2023-06-29] VITALS (13 sets, daily range): BP systolic 128–152; BP diastolic 72–89; PULSE 72–90; RESP 13–18; TEMP 36.4–36.8; O2SAT 94–100; BMI 26.6; BMI 26.4
--- NOTE | 2023-06-29 16:34 | EKG12_ITS ---
Test Reason : Blood Pressure : / mmHG Vent. Rate : 082 BPM Atrial Rate : 082 BPM P-R Int : 142 ms QRS Dur : 086 ms QT Int : 380 ms P-R-T Axes : 040 -23 014 degrees QTc Int : 443 ms Normal sinus rhythm Possible Left atrial enlargement Minimal voltage criteria for LVH, may be normal variant ( R in aVL ) Borderline ECG Confirmed by [place] HELTON, ANAT ([id number]), movie editor JOE CUETO ([id number]) on 07/01/2023 10:49:35 AM Referred By: Mimi Silvestre Confirmed By:ANAT BOYLE MD
--- NOTE | 2023-06-29 16:34 | CT_ITS ---
We are attempting to reach an attending provider to discuss findings. An addendum with communication details will be sent when the communication is complete. STUDY: CT BRAIN WITHOUT CONTRAST REASON FOR EXAM: Female, 78 years old. Neuro deficit, acute, stroke suspected TECHNIQUE: Transaxial CT imaging of the brain was performed without administration of intravenous contrast material. Individualized dose optimization techniques were used for this CT. COMPARISON: No relevant priors. FINDINGS: Normal soft tissue structures. Normal calvarium. Normal size ventricles and extra-axial spaces for the patient''s age. Normal white matter tracts of the cerebral hemispheres. Normal basal ganglia and thalami. Normal brainstem. Normal cerebellum. There is no intracranial hemorrhage. There are no findings of an acute ischemic infarction. Normal visualized paranasal sinuses. CT/STROKE Brain/Head without Cont IMPRESSION: Normal unenhanced CT scan of the brain. Electronically Signed: Wilder Nunez MD at 16:53 EST ,
--- NOTE | 2023-06-29 16:35 | CT_ITS ---
We are attempting to reach an attending provider to discuss findings. An addendum with communication details will be sent when the communication is complete. STUDY: CTA HEAD AND NECK WITH CONTRAST REASON FOR EXAM: Female, 78 years old. Neuro deficit, acute, stroke suspected RADIATION DOSAGE (If Supplied By Facility): CTDIvol = ( 21.06 ) mGy, DLP = ( 661.72 ) mGycm TECHNIQUE: CT angiography was performed with a multi-detector CT scanner. Data acquisition was obtained from the skull base through the vertex following intravenous administration of IV 100mL [id number]-[id number]. MIP images were reconstructed from the axial data set. Post-processing of the angiographic images was performed, with multiplanar reformation and 3D reconstruction. Individualized dose optimization techniques were used for this CT. COMPARISON: CT brain June 29 2023 . CTA brain September 28, 2016. FINDINGS: Normal bilateral petrous carotid arteries. Normal right cavernous carotid artery with a normal supraclinoid bifurcation. Normal left cavernous carotid artery with a normal supraclinoid bifurcation. Normal right A1 segments of the anterior cerebral artery. Normal left A1 segments of the anterior cerebral artery. Normal intact anterior communicating artery (ACOM). Normal bilateral A2 segments of the anterior cerebral arteries. Normal right M1 and M2 segments of the middle cerebral arteries, with a normal M1 bifurcation. Normal left M1 and M2 segments of the middle cerebral arteries, with a normal M1 bifurcation. Normal right posterior communicating artery (PCOM). There is non-visualization of the left posterior communicating artery (PCOM). Left vertebral artery terminates as the PICA. The right vertebral artery appears normal. Normal basilar artery with a normal basilar bifurcation. The visualized bilateral superior cerebellar (SCA) arteries are normal. Normal bilateral P1, P2 and visualized P3 segments of the posterior cerebral arteries. There is no demonstrated aneurysm of the [place] of [place]. There is no demonstrated abnormality of the visualized brain. AORTIC ARCH: Normal visualized aortic arch. Normal origins of the brachiocephalic, left common carotid, and left subclavian arteries. RIGHT CAROTID ARTERIES: Normal right common carotid artery (CCA). Normal right common carotid bulb. Normal origin of the right internal carotid (ICA) artery without a hemodynamically significant stenosis. Normal visualized cervical portion of the right internal carotid artery. Normal origin of the right external carotid artery (ECA). LEFT CAROTID ARTERIES: Normal left common carotid artery (CCA). Normal left common carotid bulb. Normal origin of the left internal carotid (ICA) artery without a hemodynamically significant stenosis. Normal visualized cervical portion of the left internal carotid artery. Normal origin of the left external carotid artery (ECA). VERTEBRAL ARTERIES: Right vertebral artery is dominant. Left vertebral artery terminates as the PICA. CT/STROKE CTA Head AND Neck W/Con IMPRESSION: Normal CTA Head and neck with contrast. Electronically Signed: Wilder Nunez MD at 17:17 [facility] ,
--- NOTE | 2023-06-29 16:35 | EDS_ITS ---
HPI History of Present Illness Chief Complaint: Stroke Alert Narrative Narrative: 78-year-old female presents via EMS with strokelike symptoms that began within the last hour. She was at [facility] for a knee surgery follow-up. All of a sudden, she became confused and had expressive aphasia. She was having problems finding her words, and could not answer, then EMS noted slurred speech. Patient denies any headache. Prehospital stroke team was initiated by EMS. Patient will answer I do not know to certain questions. [facility] Medical History Glaucoma High cholesterol Hypothyroid Lichen sclerosus Home Medications levothyroxine 50 mcg tablet 50 mcg PO DAILY 09/28/16 [History Last Taken 0 09/27/16] simvastatin 10 mg tablet 10 mg PO DAILY 09/28/16 [History Last Taken 09/27/16] sumatriptan succinate 50 mg tablet 50 mg PO PRN PRN Headache 09/28/16 [History Last Taken 09/27/16] clobetasol 0.05 % topical ointment 1 applic topical .COMPLEX #15 grams 09/01/22 [Rx Last Taken Unknown] latanoprost 0.005 % eye drops 1 drp ophthalmic (eye) DAILY 09/01/22 [History Last Taken Unknown] dicyclomine 10 mg capsule 10 mg PO TID PRN abdominal pain #20 caps 06/24/23 [Rx Last Taken Unknown] famotidine 20 mg tablet 20 mg PO DAILY 06/24/23 [History Last Taken Unknown] meloxicam 7.5 mg tablet 7.5 mg PO BID 06/24/23 [History Last Taken Unknown] acetaminophen 500 mg capsule 1,000 mg PO BID PRN pain 06/29/23 [History Last Taken Unknown] aspirin 81 mg tablet,delayed release 81 mg PO BID 06/29/23 [History Last Taken Unknown] lactulose 10 gram/15 mL oral solution (Constulose) 06/29/23 [History Last Taken Unknown] Allergy/AdvReac Type Severity Reaction Status Date / Time Penicillins Allergy Intermediate Rash Verified 06/24/23 08:52 amoxicillin Allergy Mild Rash Verified 09/16/22 10:58 Family History Sister Breast cancer Mother CVA (cerebral vascular accident) Father Emphysema lung Brother CVA (cerebral vascular accident) Social History household members: spouse housing: house number of children: 0 current occupational status: retired Smoking Status: Never smoker alcohol intake: current alcohol intake frequency: holidays/special occasions only substance use type: does not use seatbelt use: always do you feel safe at home: Yes additional social history: - Owen No biological children- one adopted- Norman ROS ROS ED ROS Narrative Mildly limited secondary to patient's expressive aphasia. Obtained from EMS. Constitutional: No fever, no chills. HEENT: No sore throat. No neck pain. No loss of vision. No rhinorrhea. Cardiovascular: No chest pain. No palpitations. No pedal edema. Respiratory: No cough, no shortness of breath. Abdominal: No abdominal pain. No nausea. No vomiting. Genitourinary: No dysuria. No hematuria. Musculoskeletal: No myalgias. No arthralgias. Neurologic: No headaches. No dizziness. No lightheadedness. Positive slurred speech. Positive expressive aphasia. Skin: No rash. No change in color. Psychiatric: No depression. No anxiety. EXAM Physical Exam Narrative Exam Narrative: Afebrile. Vital signs noted. HEENT: Normocephalic. Atraumatic. PERRL, EOMI. Neck soft and supple. No point tenderness or step off. Cardiovascular: Regular rate and rhythm. No murmurs, rubs, or gallops appreciated. Respiratory: No tachypnea. Lungs clear to auscultation bilaterally. Gastrointestinal: Abdomen soft, nontender, with normoactive bowel sounds. No rebound or guarding. Neurological: Awake. Alert. Nonfocal, nonlateralizing. Positive mild expressive aphasia. Positive slight dysarthria. Skin: No rash. Normal color. No pallor. Musculoskeletal: No pedal edema. Full range of motion extremities. Const Vital Signs: 06/29/23 16:34 06/29/23 16:41 06/29/23 16:44 Temperature 97.7 F L 97.7 F L Temperature Source Temporal Temporal Pulse Rate 90 Respiratory Rate 16 Blood Pressure 140/78 H Blood Pressure Mean 98 Pulse Ox 100 Oxygen Delivery Method Room Air Room Air 06/29/23 16:34 06/29/23 17:04 06/29/23 17:11 Temperature Temperature Source Pulse Rate 78 82 80 Respiratory Rate 15 14 15 Blood Pressure 151/73 H 152/82 H 152/82 H Blood Pressure Mean 99 105 105 Pulse Ox 100 99 97 Oxygen Delivery Method Room Air Room Air Room Air NIHSS NIHSS Initial: 1a Level of Consciousness: 0 1b LOC Questions (Score 2 if aphasic/stupor): 1 1c LOC Commands (Only score 1st attempt): 0 2 Best Gaze (If aphasic, use reflexive mvmts.): 0 3 Visual: 0 4 Facial Palsy: 0 5 Motor Arm Right (UN = amputation/fusion): 0 5 Motor Arm Left: 0 6 Motor Leg Right: 0 6 Motor Leg Left: 0 8 Sensory (Aphasia/stupor=0 or 1, coma=2): 0 9 Best Language: 1 10 Dysarthria (mute, coma=2, intubated=UN): 1 11 Extinction and Inattention (only scored if +): 0 Total Score: 3 MDM MDM MDM Narrative Medical decision making narrative: As prehospital stroke team was called, she was evaluated initially with an NIH of approximately 3 for dysarthria, expressive aphasia, and level of consciousness question was answered incorrectly as she could not state the month. I reviewed her laboratory work and she has a leukocytosis of 13.8 which I think is nonspecific, hemoglobin stable at 11.4, hematocrit 35.6, platelet count elevated 712 which may be an acute phase reactant. Coagulation studies are no rmal with an INR of 1.0 and a PTT of 27.5, electrolyte panel is grossly unremarkable except for chloride of 109 which I think is nonspecific, glucose appropriately elevated at 123 with an anion gap normal at 8. BUN slightly elevated at 19 with creatinine 1.02. High-sensitivity troponin is 8. EKG was obtained and interpreted by myself independently as normal sinus rhythm at 82 bpm without ectopy or acute ST changes. No STEMI. I discussed the CT of the brain results with the radiologist over the telephone and it shows no acute hemorrhage or mass. Additionally, I discussed with him over the telephone the results of the CTA which shows no large vessel occlusion. I also entered the room and spoke with the teleneurologist who states that as her symptoms have improved significantly, this is more of a TIA so TNK is not indicated. I will discuss patient with the hospitalist for observation here in the PCU. Upon my repeat examination at approximately 1715, her expressive aphasia has improved and she is able to object name and no longer has an extreme expressive aphasia. She knows the month as well. I discussed the patient with Dr. Mimi Silvestre for observation in the PCU. Patient is in stable condition. History & Record Review Discussion w/independent historian: Patient and Family Additional record(s) reviewed:: Prior ED visit and Prior labs Lab Data Attestation: I reviewed the patient's lab results. Labs: Laboratory Results - last 24 hr 06/29/23 16:30 WBC 13.8 H RBC 4.37 Hgb 11.4 L Hct 35.6 L MCV 81.5 MCH 26.1 L MCHC 32.0 RDW Std Deviation 44.7 H RDW Coeff of Baudilio 14.9 H Plt Count 712 H MPV 9.5 Immature Gran % (Auto) 0.400 Neut % (Auto) 68.8 Lymph % (Auto) 21.4 [place] % (Auto) 7.3 Eos % (Auto) 1.7 Baso % (Auto) 0.4 Absolute Neuts (auto) 9.5 H Absolute Lymphs (auto) 2.94 Nucleated RBC % 0 PT 13.0 INR 1.0 APTT 27.5 Sodium 138 Potassium 4.0 Chloride 109 H Carbon Dioxide 21.0 Anion Gap 8 BUN 19 H Creatinine 1.02 Estim Creat Clear Calc 48.17 Est GFR (MDRD) Af Amer 68 Est GFR (MDRD) Non-Af 56 L BUN/Creatinine Ratio 18.6 Glucose 123 H Calcium 9.2 Troponin I High Sens 8 Radiography Diagnostic Testing: Clinical Impression(s) from Imaging Studies Brain CT 06/29/23 16:34 IMPRESSION: Normal unenhanced CT scan of the brain. Electronically Signed: Wilder Nunez MD at 16:53 EST , ADDENDUM: 06/29/23 1711 IMPRESSION: Normal unenhanced CT scan of the brain. N.B. : The above Results were Read Back by Wilder Nunez MD to Lazarus Flores MD, and understanding confirmed on 06/29/2023 17:04:27 (ET). Electronically Signed: Wilder Nunez MD at 16:53 EST Reading Location ID and State: [facility] / [place] Tel , Service support , Head/Neck CTA 06/29/23 16:35 IMPRESSION: Normal CTA Head and neck with contrast. Electronically Signed: Wilder Nunez MD at 17:17 EST , Management Discussion w/another healthcare provider: Hospitalist, [place] (Teleneurologist, Dr. Srivastava) and Radiologist Discharge Plan Triage Chief Complaint: Stroke Alert ED Provider: Lazarus Flores Dx/Rx/DC Orders Prescriptions: No Action latanoprost 0.005 % drops 1 drp ophthalmic (eye) DAILY clobetasol 0.05 % ointment 1 applic topical .COMPLEX Qty: 15 3RF Rx Instructions: 1 applic topically rub in small amount daily X 2 weeks then prn; simvastatin 10 MG tablet 10 mg PO DAILY sumatriptan succinate 50 MG tablet 50 mg PO PRN PRN (Reason: Headache) levothyroxine 50 MCG tablet 50 mcg PO DAILY famotidine 20 mg tablet 20 mg PO DAILY meloxicam 7.5 mg tablet 7.5 mg PO BID dicyclomine 10 mg capsule 10 mg PO TID PRN (Reason: abdominal pain) Qty: 20 0RF acetaminophen 500 mg capsule 1,000 mg PO BID PRN (Reason: pain) aspirin 81 mg tablet,delayed release (DR/EC) 81 mg PO BID lactulose [Constulose] 10 gram/15 mL solution Primary Care Provider: Petty Garza Referrals: Petty Garza MD [Primary Care Provider] -
[2023-06-29 16:49] LABS: Absolute Lymphocyte Count 2.94 X10^3/uL (0.83-4.51); Absolute Neutrophil Count 9.5 X10^3/uL (2.0-7.7); Basophil# 0.06 X10^3/uL; Basophil% 0.4 % (0-1); Eosinophil# 0.23 X10^3/uL; Eosinophils% 1.7 % (0-5); Hematocrit 35.6 % (37-47); Hemoglobin 11.4 g/dL (12.0-15.0); Lymphocyte # 2.94 X10^3/ul (0.83-4.51); Lymphocyte % 21.4 % (19-41); Mean Corpuscular Hgb 26.1 pg (27.0-32.0); Mean Corpuscular Volume 81.5 fL (81-99); Mean Platelet Vol. 9.5 fl (6.2-12.0); Monocyte# 1.01 X10^3/uL; Monocyte% 7.3 % (0-10); NRBC Flagged by Analyzer 0 % (0-5); Neutrophil # 9.46 X10^3/uL (2.7-7.7); Neutrophil % 68.8 % (47-70); Platelet Count 712 K/mm3 (150-450); RBC Distribution Width CV 14.9 % (11.6-14.6); RBC Distribution Width SD 44.7 fl (35.1-43.9); Red Blood Count 4.37 M/mm3 (4.2-5.4); White Blood Count 13.8 K/mm3 (4.4-11.0)
[2023-06-29 16:58] LABS: Partial Thromboplast Time 27.5 Seconds (24.1-36.2)
[2023-06-29 17:07] LABS: Anion Gap 8 (5-15); BUN 19 mg/dL (7-18); BUN/Creat Ratio 18.6 RATIO (10-20); Calcium,Total 9.2 mg/dL (8.5-10.1); Chloride 109 mmol/L (98-107); Creatinine, Serum 1.02 mg/dL (0.55-1.02); EST Glomerular Filtration Rate 56 mL/min (>60); Est Glom Filt Rate - Afr Amer 68 mL/min (>60); Estimated Creatinine Clearance 48.17 ml/min; Glucose 123 mg/dL (74-106); Sodium Level 138 mmol/L (136-145); Troponin-I HS 8 pg/mL (3.0-54.0)
--- NOTE | 2023-06-29 17:47 | HP.PCM.HOS_ITS ---
HPI - General General Date of Admission: 06/29/23 Date of Service: 06/29/23 Chief Complaint: expressive aphasia HPI Narrative EDWIN DICKERSON, is a 78-year-old female history of hypothyroidism and migraines who presented to [facility] ED 06/29/2023 with strokelike symptoms that began in the previous hour. She was going to [facility] for a knee surgery follow-up when she suddenly became confused and had expressive aphasia and EMS noted slurred speech. Patient was a stroke alert on arrival. CT and CTA head and neck negative and telestroke neurologist evaluated, patient back to baseline. Advised patient be admitted for TIA/stroke workup. In the ED patient had white blood cell count of 13.8 and hemoglobin of 11.4 but workup otherwise unremarkable. Hospitalist contacted for TIA/stroke rule out. Patient evaluated bedside. Patient and note that they were driving to the Ortho office when symptoms began, when they got there she was confused and had expressive aphasia and was slurring words and this lasted roughly an hour and a half or so and has since resolved in the ED. She has never had symptoms like this before, denies any headache, no numbness weakness or tingling anywhere, no other acute complaints [facility] Medical History (Updated 06/29/23 @ 17:[address] Mimi Silvestre MD) Glaucoma High cholesterol History of migraine Hypothyroid Lichen sclerosus Home Medications levothyroxine 50 mcg tablet 50 mcg PO DAILY 09/28/16 [History Last Taken 09/27/16] simvastatin 10 mg tablet 10 mg PO DAILY 09/28/16 [History Last Taken 09/27/16] sumatriptan succinate 50 mg tablet 50 mg PO PRN PRN Headache 09/28/16 [History Last Taken 09/27/16] clobetasol 0.05 % topical ointment 1 applic topical .COMPLEX #15 grams 09/01/22 [Rx Last Taken Unknown] latanoprost 0.005 % eye drops 1 drp ophthalmic (eye) DAILY 09/01/22 [History Last Taken Unknown] dicyclomine 10 mg capsule 10 mg PO TID PRN abdominal pain #20 caps 06/24/23 [Rx Last Taken Unknown] famotidine 20 mg tablet 20 mg PO DAILY 06/24/23 [History Last Taken Unknown] meloxicam 7.5 mg tablet 7.5 mg PO BID 06/24/23 [History Last Taken Unknown] acetaminophen 500 mg capsule 1,000 mg PO BID PRN pain 06/29/23 [History Last Taken Unknown] aspirin 81 mg tablet,delayed release 81 mg PO BID 06/29/23 [History Last Taken Unknown] lactulose 10 gram/15 mL oral solution (Constulose) 06/29/23 [History Last Taken Unknown] Allergy/AdvReac Type Severity Reaction Status Date / Time Penicillins Allergy Intermediate Rash Verified 06/24/23 08:52 amoxicillin Allergy Mild Rash Verified 09/16/22 10:58 Family History Sister Breast cancer Mother CVA (cerebral vascular accident) Father Emphysema lung Brother CVA (cerebral vascular accident) Social History household members: spouse housing: house number of children: 0 current occupational status: retired Smoking Status: Never smoker alcohol intake: current alcohol intake frequency: holidays/special occasions only substance use type: does not use seatbelt use: always do you feel safe at home: Yes additional social history: - Owen No biological children- one adopted- Norman WIN ROS Narrative General: Denies fever/chills HENT: Denies headache, denies stuffy nose, denies sore throat EYES: Denies changes in vision Resp: Denies cough, denies shortness of breath Cardiac: Denies chest pain GI: Denies abdominal pain, denies changes in bowel, denies nausea/vomiting : Denies changes in urination Extremity: Denies swelling MSK: Denies weakness Neuro: Denies any numbness/tingling, had the expressive aphasia and confusion for about an hour and a half that is resolved Heme: Denies any bleeding or bruising Skin: Denies rashes Psychiatric: No complaints voiced Vital Signs Vital Signs Vital Signs: 06/29/23 16:34 06/29/23 16:41 06/29/23 16:44 Temperature 97.7 F L 97.7 F L Temperature Source Temporal Temporal Pulse Rate 90 Respiratory Rate 16 Blood Pressure 140/78 H Blood Pressure Mean 98 Pulse Ox 100 Oxygen Delivery Method Room Air Room Air 06/29/23 16:34 06/29/23 17:04 06/29/23 17:11 Temperature Temperature Source Pulse Rate 78 82 80 Respiratory Rate 15 14 15 Blood Pressure 151/73 H 152/82 H 152/82 H Blood Pressure Mean 99 105 105 Pulse Ox 100 99 97 Oxygen Delivery Method Room Air Room Air Room Air Weight Weight: 76.204 kg Body Mass Index (BMI) 26.4 Physical Exam Narrative General: Alert, oriented, no apparent distress HEENT: Atraumatic, normocephalic Eyes: Anicteric, normal conjunctiva, extraocular movements intact, pupils equal Neck: Supple Respiratory: Clear to auscultation bilaterally, normal respiratory effort Cardiovascular: Regular rate and rhythm GI: Soft, nontender, nondistended Extremities: No edema Musculoskeletal: Strength 5 out of 5 in right upper extremity, 5 out of 5 left upper extremity, full strength not tested in right lower extremity as patient has recent knee replacement but does not have difficulty moving that leg overall, 5 out of 5 left lower extremity Neuro: No overt focal neurological deficits, cranial nerves II through XII intact, [id number] without significant difficulty bilaterally Skin: No rashes appreciated Psych: Cooperative Results Lab / Micro Data 06/29/23 16:30 06/29/23 16:30 Labs: Laboratory Results - last 24 hr 06/29/23 16:30: WBC 13.8 H, RBC 4.37, Hgb 11.4 L, Hct 35.6 L, MCV 81.5, MCH 26.1 L, MCHC 32.0, RDW Std Deviation 44.7 H, RDW Coeff of Baudilio 14.9 H, Plt Count 712 H , MPV 9.5, Immature Gran % (Auto) 0.400, Neut % (Auto) 68.8, Lymph % (Auto) 21.4, [place]t % (Auto) 7.3, Eos % (Auto) 1.7, Baso % (Auto) 0.4, Absolute Neuts (auto) 9.5 H, Absolute Lymphs (auto) 2.94, Nucleated RBC % 0, PT 13.0, INR 1.0, APTT 27.5, Sodium 138, Potassium 4.0, Chloride 109 H, Carbon Dioxide 21.0, Anion Gap 8, BUN 19 H, Creatinine 1.02, Estim Creat Clear Calc 48.17, Est GFR (MDRD) Af Amer 68, Est GFR (MDRD) Non-Af 56 L, BUN/Creatinine Ratio 18.6, Glucose 123 H , Calcium 9.2, Troponin I High Sens 8 Imaging Radiology Impression Brain CT 06/29/23 16:34 IMPRESSION: Normal unenhanced CT scan of the brain. Electronically Signed: Wilder Nunez MD at 16:53 EST Reading Location ID and State: [address] [place] [address] Tel , Service support , ADDENDUM: 06/29/23 1711 IMPRESSION: Normal unenhanced CT scan of the brain. N.B. : The above Results were Read Back by Wilder Nunez MD to Lazarus Flores MD, and understanding confirmed on 06/29/2023 17:04:27 (ET). Electronically Signed: Wilder Nunez MD at 16:53 EST Reading Location [facility] and [facility]: [facility] Tel , Service support , Head/Neck CTA 06/29/23 16:35 IMPRESSION: Normal CTA Head and neck with contrast. Electronically Signed: Wilder Nunez MD at 17:17 EST Reading Location ID and State: [facility] Tel , Service support , ADDENDUM: 06/29/23 1729 IMPRESSION: Normal CTA Head and neck with contrast. N.B. : The above Results were Read Back by Wilder Nunez MD to Lazarus Flores MD, and understanding confirmed on 06/29/2023 17:22:46 (ET). Electronically Signed: Wilder Nunez MD at 17:17 EST Reading Location ID and State: [employer] MD Tel , Service support , Assessment & Plan Assessment/Plan (1) Expressive aphasia: (2) Hypothyroid: (3) History of migraine: PLAN: Plan # Brief period of confusion and expressive aphasia -Admit to tele -CT head w/ no acute changes -CTA head and neck negative -MRI ordered -NIH q4hr -asa, statin -Echo w/ bubble study -PT/OT/Speech eval -Hold BP medications to allow for permissive hypertension for 24 hours unless SBP greater than 220 or DBP greater than 120 or until stroke is ruled out # GERD -Continue famotidine # History of migraines -No present headache or symptoms and has not had symptoms like this with headaches previously -Supportive care #Hypothyroidism -Continue Synthroid # Recent right knee replacement -Doing well -Supportive care #DVT ppx: SCDs Mimi Silvestre MD Charges/Coding Visit Charges Inpatient E&M: 61655 Init Hosp L1
--- NOTE | 2023-06-29 17:51 | ECHOD_ITS ---
Reason For Study: TIA/CVA Procedure This was a 2D Doppler, Color Flow transthoracic echocardiogram. Exam performed portable in patient room. Left Ventricle Normal LV size. Left ventricular systolic function is normal. The estimated ejection fraction is 60 %. No regional wall motion abnormalities noted. Right Ventricle Normal RV size. Normal systolic function. Atria Normal left atrium. Normal right atrium. Hypermobile atrial septum. Mitral Valve Normal mitral valve. Tricuspid Valve Normal tricuspid valve. Aortic Valve Normal aortic valve. Trisinus/trileaflet aortic valve. Pulmonic Valve Normal pulmonic valve. Great Vessels Normal aortic root. Pericardium/Pleural No pericardial effusion. Medication Performed a rapid injection of agitated mix of 9 cc saline and 1cc air to assess for atrial septal defect. MMode/2D Measurements & Calculations LVIDd: 4.4 cm IVSd: 1.0 cm Ao root diam: 3.2 cm LVIDs: 2.7 cm LVPWd: 1.0 cm RVDd: 3.1 cm FS: 38.3 % LAV(MOD-bp): 35.8 ml LVAd ap4: 24.4 cm2 LVAd ap2: 22.5 cm2 LAV(MOD-bp) Indexed: 19.2 ml/m2 LVLd ap4: 7.2 cm LVLd ap2: 7.0 cm LAV(MOD-sp2): 46.7 ml EDV(MOD-sp4): 68.1 ml EDV(MOD-sp2): 59.7 ml LAV(MOD-sp4): 26.8 ml EDV(sp4-el): 69.9 ml EDV(sp2-el): 61.7 ml LVAs ap4: 14.9 cm2 LVAs ap2: 13.2 cm2 LVLs ap4: 5.9 cm LVLs ap2: 6.4 cm ESV(MOD-sp4): 31.1 ml ESV(MOD-sp2): 24.3 ml ESV(sp4-el): 31.8 ml ESV(sp2-el): 23.0 ml EF(MOD-sp4): 54.3 % EF(MOD-sp2): 59.3 % EF(sp4-el): 54.5 % SV(MOD-sp4): 37.0 ml SV(MOD-sp2): 35.4 ml SV(sp4-el): 38.1 ml LA A4 area: 12.1 cm2 LA dimension(2D): 3.0 cm RA A4 area: 10.5 cm2 TAPSE: 1.9 cm Time Measurements MV dec time: 0.32 sec Doppler Measurements & Calculations MV E max monty: 58.7 cm/sec Lat Peak E' Omnty: 7.3 cm/sec Med Peak E' Monty: 4.2 cm/sec MV A max monty: 87.6 cm/sec E/E' lat: 8.0 E/E' med: 14.1 MV E/A: 0.67 Ao V2 max: 135.6 cm/sec LV V1 max: 97.7 cm/sec MV dec slope: 184.6 cm/sec2 Ao max P.4 mmHg LV V1 max P.8 mmHg Ao V2 mean: 92.7 cm/sec LV V1 mean P.0 mmHg Ao mean P.0 mmHg LV V1 mean: 66.0 cm/sec Ao V2 VTI: 27.9 cm LV V1 VTI: 22.1 cm AV (velocity ratio): 0.79 PA V2 max: 83.0 cm/sec TR max monty: 234.5 cm/sec TR max P.0 mmHg ECHO/Echo Complete Interpretation Summary Normal LV size. Left ventricular systolic function is normal. The estimated ejection fraction is 60 %. Hypermobile atrial septum. Ordering Physician: Mimi Silvestre Referring Physician: Petty Garza M.D. Performed By: Mikayla Marsh RDCS
--- NOTE | 2023-06-29 18:45 | RAD_ITS ---
STUDY: X-RAY CHEST REASON FOR EXAM: Female, 78 years old. Neuro deficit, acute, stroke suspected TECHNIQUE: Single frontal view of the chest. COMPARISON: November 08, 2020 FINDINGS: Interstitial infiltrate versus subsegmental atelectasis left base. There is no demonstrated pleural abnormality. Normal size heart. Normal mediastinum and valerie. Normal visualized pulmonary arteries. Normal visualized aortic arch and descending thoracic aorta. Normal visualized thoracic spine. Normal visualized ribs, clavicles, and shoulders. There is no demonstrated abnormality of the visualized soft tissue structures of the upper abdomen. RAD/Chest 1 View IMPRESSION: Left lower lobe subsegmental atelectasis versus small interstitial infiltrate Electronically Signed: Wilder Nunez MD at 19:54 EST ,
[2023-06-29] MEDS: Acetaminophen 325 MG Tablet 650 MG PO (22:54)
[2023-06-29] MEDS: Latanoprost 0.005% 1 Bottle 1 DRP OPHTHALMIC (22:55)
[2023-06-29] MEDS: Aspirin 325 MG Tablet PO (22:55)
[2023-06-29] MEDS: Atorvastatin Calcium 40 MG Tablet PO (22:56)
[2023-06-30] VITALS (7 sets, daily range): BP systolic 112–132; BP diastolic 65–79; PULSE 75–92; RESP 12–16; TEMP 36.1–37.2; O2SAT 93–100; BMI 26.6
[2023-06-30] MEDS: Levothyroxine 50 MCG Tablet PO (06:21)
--- NOTE | 2023-06-30 07:20 | PN.HOSP_ITS ---
Reason for Visit Reason for Visit: Diagnoses Hypothyroidism, unspecified (06/29/23) Aphasia (06/29/23) Personal history of other diseases of the nervous system and sense organs (06/29/23) Objective Data Objective Data Vital Signs: Vital Signs Temp Pulse Resp BP Pulse Ox O2 Del Method 98.3 F 75 16 132/79 H 95 Room Air 06/30/23 06:00 06/30/23 06:00 06/30/23 06:00 06/30/23 06:00 06/30/23 06:00 06/30/23 06:00 Oxygen Delivery Method Room Air Weight: 169 lb 15.622 oz Body Mass Index (BMI) 26.6 Intake & Output: Intake and Output for Last 24 Hours 06/28/23 06/29/23 06/30/23 23:59 23:59 23:59 Intake Total 50 / 50 0 / 0 Output Total 0 / 0 Balance 50 / 50 0 / 0 Lab / Micro Data 06/29/23 16:30 06/29/23 16:30 Labs: Laboratory Results - last 24 hr 06/29/23 16:30: WBC 13.8 H, RBC 4.37, Hgb 11.4 L, Hct 35.6 L, MCV 81.5, MCH 26.1 L, MCHC 32.0, RDW Std Deviation 44.7 H, RDW Coeff of Baudilio 14.9 H, Plt Count 712 H , MPV 9.5, Immature Gran % (Auto) 0.400, Neut % (Auto) 68.8, Lymph % (Auto) 21.4, Mcculloch % (Auto) 7.3, Eos % (Auto) 1.7, Baso % (Auto) 0.4, Absolute Neuts (auto) 9.5 H, Absolute Lymphs (auto) 2.94, Nucleated RBC % 0, PT 13.0, INR 1.0, APTT 27.5, Sodium 138, Potassium 4.0, Chloride 109 H, Carbon Dioxide 21.0, Anion Gap 8, BUN 19 H, Creatinine 1.02, Estim Creat Clear Calc 48.17, Est GFR (MDRD) Af Amer 68, Est GFR (MDRD) Non-Af 56 L, BUN/Creatinine Ratio 18.6, Glucose 123 H , Calcium 9.2, Troponin I High Sens 8 Radiography Diagnostic Testing: Radiology Impression Brain CT 06/29/23 16:34 IMPRESSION: Normal unenhanced CT scan of the brain. Electronically Signed: Wilder Nunez MD at 16:53 EST , ADDENDUM: 06/29/23 1711 IMPRESSION: Normal unenhanced CT scan of the brain. N.B. : The above Results were Read Back by Wilder Nunez MD to Lazarus Flores MD, and understanding confirmed on 06/29/2023 17:04:27 (ET). Electronically Signed: Wilder Nunez MD at 16:53 EST , Head/Neck CTA 06/29/23 16:35 IMPRESSION: Normal CTA Head and neck with contrast. Electronically Signed: Wilder Nunez MD at 17:17 EST , ADDENDUM: 06/29/23 1729 IMPRESSION: Normal CTA Head and neck with contrast. N.B. : The above Results were Read Back by Wilder Nunez MD to Lazarus Flores MD, and understanding confirmed on 06/29/2023 17:22:46 (ET). Electronically Signed: Wilder Nunez MD at 17:17 EST , Chest X-Ray 06/29/23 18:45 IMPRESSION: Left lower lobe subsegmental atelectasis versus small interstitial infiltrate Electronically Signed: Wilder Nunez MD at 19:54 EST , Assessment & Plan Assessment/Plan (1) Expressive aphasia: (2) Hypothyroid: (3) History of migraine: PLAN: Plan 78-year-old female was admitted through ED/EMS in PCU for strokelike symptoms that started about an hour prior to ED arrival when she was all necessary follow-up in [place] [facility]. She suddenly became confused with expressive aphasia, problem finding words, could not answer and EMS noted slurred speech. The patient was evaluated by [facility] teleneurologist and patient improved to baseline. She was further admitted for workup. # Most likely TIA: Patient is admitted in telemetry. CT head and CTA head and neck did not show acute change. PT, OT, speech therapy/swallow evaluation and management, nursing NIH stroke scale, BP and glucose monitoring and control as per stroke protocol. TSH, A1c fasting lipid profile ordered ordered. MRI brain and 2D echo with bubble contrast study ordered. # GERD -Continue famotidine # History of migraines -No present headache or symptoms and has not had symptoms like this with headaches previously -Supportive care #Hypothyroidism -Continue Synthroid # Recent right knee replacement -Doing well -Supportive care #DVT ppx: SCDs Laboratory Results 06/29/23 16:30: WBC 13.8 H, RBC 4.37, Hgb 11.4 L, Hct 35.6 L, MCV 81.5, MCH 26.1 L, MCHC 32.0, RDW Std Deviation 44.7 H, RDW Coeff of Baudilio 14.9 H, Plt Count 712 H , MPV 9.5, Immature Gran % (Auto) 0.400, Neut % (Auto) 68.8, Lymph % (Auto) 21.4, Mcculloch % (Auto) 7.3, Eos % (Auto) 1.7, Baso % (Auto) 0.4, Absolute Neuts (auto) 9.5 H, Absolute Lymphs (auto) 2.94, Nucleated RBC % 0, PT 13.0, INR 1.0, APTT 27.5, Sodium 138, Potassium 4.0, Chloride 109 H, Carbon Dioxide 21.0, Anion Gap 8, BUN 19 H, Creatinine 1.02, Estim Creat Clear Calc 48.17, Est GFR (MDRD) Af Amer 68, Est GFR (MDRD) Non-Af 56 L, BUN/Creatinine Ratio 18.6, Glucose 123 H, Calcium 9.2, Troponin I High Sens 8
[2023-06-30 07:41] LABS: Absolute Lymphocyte Count 2.87 X10^3/uL (0.83-4.51); Absolute Neutrophil Count 6.2 X10^3/uL (2.0-7.7); Basophil# 0.05 X10^3/uL; Basophil% 0.5 % (0-1); Eosinophil# 0.31 X10^3/uL; Hematocrit 31.4 % (37-47); Hemoglobin 10.4 g/dL (12.0-15.0); Lymphocyte # 2.87 X10^3/ul (0.83-4.51); Lymphocyte % 27.7 % (19-41); Mean Corp Hgb Conc 33.1 g/dL (32-36); Mean Corpuscular Hgb 27.2 pg (27.0-32.0); Mean Corpuscular Volume 82.2 fL (81-99); Mean Platelet Vol. 9.1 fl (6.2-12.0); Monocyte# 0.84 X10^3/uL; Monocyte% 8.1 % (0-10); NRBC Flagged by Analyzer 0 % (0-5); Neutrophil # 6.24 X10^3/uL (2.7-7.7); Neutrophil % 60.3 % (47-70); Platelet Count 592 K/mm3 (150-450); RBC Distribution Width CV 15.3 % (11.6-14.6); RBC Distribution Width SD 45.6 fl (35.1-43.9); Red Blood Count 3.82 M/mm3 (4.2-5.4); White Blood Count 10.4 K/mm3 (4.4-11.0)
[2023-06-30 08:16] LABS: Anion Gap 4 (5-15); BUN 14 mg/dL (7-18); BUN/Creat Ratio 19.5 RATIO (10-20); Calcium,Total 9.1 mg/dL (8.5-10.1); Chloride 111 mmol/L (98-107); Cholesterol 131 mg/dL (200); Creatinine, Serum 0.72 mg/dL (0.55-1.02); EST Glomerular Filtration Rate 84 mL/min (>60); Est Glom Filt Rate - Afr Amer 102 mL/min (>60); Estimated Creatinine Clearance 63.03 ml/min; Glucose 106 mg/dL (74-106); High Density Lipoprotein 43 mg/dL; Potassium 3.9 mmol/L (3.5-5.1); Sodium Level 139 mmol/L (136-145); Thyroid Stim Hormone (TSH) 4.99 uIU/mL (0.358-3.74); Triglycerides 124 mg/dL; Very Low Density Lipoprotein 25 mg/dL (5-40)
[2023-06-30 08:43] LABS: Hemoglobin A1c 6.1 % (3.8-5.6)
[2023-06-30] MEDS: Enoxaparin 40 MG/0.4 ML Syringe SC (09:39)
[2023-06-30] MEDS: Aspirin 81 MG TAB.CHEW PO (09:39)
--- NOTE | 2023-06-30 10:00 | MRI_ITS ---
EXAM: MR HEAD WITHOUT INTRAVENOUS CONTRAST CLINICAL INDICATION: TIA/CVA. TECHNIQUE: Multiplanar and multisequence MR images of the brain were obtained without intravenous contrast. COMPARISON: CT head without contrast and CTA head and neck with contrast 06/29/2023. FINDINGS: BRAIN AND EXTRA-AXIAL SPACES: . No focal signal abnormalities throughout the brain parenchyma in all pulse sequences. Normal ventricles and cisterns. No intra- or extra-axial hemorrhage. No evidence of acute infarct. No intracranial mass or mass effect. There is preservation of the veras/white matter interface. Posterior fossa structures are unremarkable. No hydrocephalus SELLA: Unremarkable. Normal sella turcica, pituitary gland, infundibular stalk, optic chiasm and hypothalamus. AUDITORY SYSTEM: Unremarkable. The internal auditory canals are patent. BONES/JOINTS: Unremarkable. No discrete lytic or blastic abnormalities. SINUSES: Unremarkable as visualized. Clear. MASTOID AIR CELLS: Unremarkable as visualized. Clear. ORBITS: Unremarkable as visualized. Both globes, extraocular muscles, optic nerves and retrobulbar fat appear unremarkable. VASCULATURE: Unremarkable as visualized. Normal flow voids in the major intracranial circulation. MRI/Brain without Contrast IMPRESSION: Normal MRI brain without contrast. Electronically Signed: Lazarus Conway MD at 11:40 EST ,
--- NOTE | 2023-06-30 12:03 | PCM.DC ---
Discharge Instructions Diet Discharge Diet: No restrictions Activity Discharge Activity: Return to Normal Activity Weight Bearing Status: Weight bearing as tolerated Dressing / Incision Call your doctor if you observe: Fever of 101 or Higher, Coldness, Increased Pain, Numbness or Tingling, Change in Color, Inability to urinate, Inability to have a bowel movement, Using more than 1 pad per hour, Shortness of breath, Dizziness, Fainting spells, Swelling in the ankles, Chest pain, Prolonged hiccupping, Increased palpitations (irregular heartbeat) and Calf discomfort Follow Up Care When: IN 2 WEEKS Test Results: Test results from this visit will be discussed in further detail at your follow-up appointment, if applicable. Discharge Plan Admission Admit Date/Time: 06/29/23 17:47 Attending Provider: Jovan Rodriguez Primary Care Provider: Petty Garza Consulting Providers: Sebastien Rosenthal; Sandy Bahena; Marci Taylor; Yu Moyer; Ca Low; Derian Cardona; Suzy Tobar; Paul Jackson; Karlos Almazan; Amy Garrido; Armin Moeller; Bela Covarrubisa; Kiley Ratliff; Leisa Boland; Andrew Mcwilliams; Blanka Cooper; Alexis Linton; Aspen Floyd; Haroldo Busch; Mimi Silvestre Discharge Orders/Prescriptions Prescriptions: New atorvastatin 40 mg Tablet 40 mg PO QHS 30 Days Qty: 30 3RF levothyroxine 75 mcg tablet 75 mcg PO DAILY Qty: 30 3RF Rx Instructions: 1 hour before breakfast. Continued latanoprost 0.005 % drops 1 drp ophthalmic (eye) DAILY clobetasol 0.05 % ointment 1 applic topical .COMPLEX Qty: 15 3RF Rx Instructions: 1 applic topically rub in small amount daily X 2 weeks then prn; sumatriptan succinate 50 MG tablet 50 mg PO PRN PRN (Reason: Headache) famotidine 20 mg tablet 20 mg PO DAILY dicyclomine 10 mg capsule 10 mg PO TID PRN (Reason: abdominal pain) Qty: 20 0RF acetaminophen 500 mg capsule 1,000 mg PO BID PRN (Reason: pain) aspirin 81 mg tablet,delayed release (DR/EC) 81 mg PO BID lactulose [Constulose] 10 gram/15 mL solution Changed meloxicam 7.5 mg tablet 7.5 mg PO BID PRN (Reason: arthritis pain) Qty: 3 0RF Discontinued simvastatin 10 MG tablet 10 mg PO DAILY levothyroxine 50 MCG tablet 50 mcg PO DAILY Referrals / Follow Up: Petty Garza MD [Primary Care Provider] - Within 2 Weeks Freddie Arreola MD [Non-Staff -Ordering Privileges] - Within 1 Month (For TIA) Disposition Disposition (needs filled in before D/C Order can be placed): Home, Self Care
--- NOTE | 2023-06-30 12:59 | DS.PCM_ITS ---
Providers Date of Admission: 06/29/23 Date of Discharge: 06/30/23 Primary Care Physician: Dr. Petty Garza MD Consultations 06/29/23 20:17 Consult: Tele-Neurology Routine Consulting Provider: [facility] Reason for Consult: Acute Ischemic Stroke/TIA EMERGENT Consult: No MD Notified: Yes Date Notified: 06/30/23 Time Notified: 01:09 Method of Notification: Answering Service Comments:: seen in ED as stroke call Nursing Unit Staff Notify [facility] of Tele-Neurology Consult: Yes Reason For Visit: TIA W/U Diagnosis Discharge Diagnosis (1) Expressive aphasia: Status: Acute Code(s): R47.01 - Aphasia (2) Hypothyroid: Status: Acute Code(s): E03.9 - Hypothyroidism, unspecified (3) History of migraine: Status: Acute Code(s): Z86.69 - Personal history of other diseases of the nervous system and sense organs Plan 78-year-old female was admitted through ED/EMS in PCU for strokelike symptoms that started about an hour prior to ED arrival when she was all necessary follow-up in [place] [facility]. She suddenly became confused with expressive aphasia, problem finding words, could not answer and EMS noted slurred speech. The patient was evaluated by [facility] teleneurologist and patient improved to baseline. She was further admitted for workup. # Most likely TIA: Patient is admitted in telemetry. CT head and CTA head and neck did not show acute change. PT, OT, speech therapy/swallow evaluation and management, nursing NIH stroke scale, BP and glucose monitoring and control as per stroke protocol. 06/30: TSH 4.99. A1c 6.1%. A1c 6.1% suggestive of prediabetes. Fasting profile within normal limit but patient had symptoms suggestive of TIA and therefore decided to treat with baby aspirin and statin. Discharged on atorvastatin dose 20 mg daily as patient LDL is normal 63 HDL 43. Patient on simvastatin 10 mg at home, changed to atorvastatin 20 mg daily she is above76 years of age. ? Neuro follow-up was done. Follow-up with PCP for prediabetes and high normal TSH. 2D echo was done. EF 60%. Hypermobile atrial septum but no ASD/PFO. N ormal left atrium. PT OT and speech evaluation were done. # GERD -Continue famotidine # History of migraines -No present headache or symptoms and has not had symptoms like this with headaches previously -Supportive care #Hypothyroidism -Continue Synthroid # Recent right knee replacement -Doing well -Supportive care #DVT ppx: SCDs Discharge medication reconciliation done. Discharge follow-up instructions completed. Discharge process discussed with the patient and all questions were answered to patient's satisfaction. Follow with PCP in 1 to 2 weeks Total time spent, exact 35 minutes on discharge meds reconciliation, examination, coordination of care with nurses and ancillary staff, review of imaging and blood test and discussion with the patient on follow-up instructions. Laboratory Results 06/29/23 16:30: WBC 13.8 H, RBC 4.37, Hgb 11.4 L, Hct 35.6 L, MCV 81.5, MCH 26.1 L, MCHC 32.0, RDW Std Deviation 44.7 H, RDW Coeff of Baudilio 14.9 H, Plt Count 712 H , MPV 9.5, Immature Gran % (Auto) 0.400, Neut % (Auto) 68.8, Lymph % (Auto) 21.4, Preble % (Auto) 7.3, Eos % (Auto) 1.7, Baso % (Auto) 0.4, Absolute Neuts (auto) 9.5 H, Absolute Lymphs (auto) 2.94, Nucleated RBC % 0, PT 13.0, INR 1.0, APTT 27.5, Sodium 138, Potassium 4.0, Chloride 109 H, Carbon Dioxide 21.0, Anion Gap 8, BUN 19 H, Creatinine 1.02, Estim Creat Clear Calc 48.17, Est GFR (MDRD) Af Amer 68, Est GFR (MDRD) Non-Af 56 L, BUN/Creatinine Ratio 18.6, Glucose 123 H, Calcium 9.2, Troponin I High Sens 8 Medications at Discharge Home Medications sumatriptan succinate 50 mg tablet 50 mg PO PRN PRN Headache 09/28/16 clobetasol 0.05 % topical ointment 1 applic topical .COMPLEX #15 grams 09/01/22 latanoprost 0.005 % eye drops 1 drp ophthalmic (eye) DAILY eye health 09/01/22 dicyclomine 10 mg capsule 10 mg PO TID PRN abdominal pain #20 caps 06/24/23 famotidine 20 mg tablet 20 mg PO DAILY reflux 06/24/23 acetaminophen 500 mg capsule 1,000 mg PO BID PRN pain 06/29/23 aspirin 81 mg tablet,delayed release 81 mg PO BID heart health 06/29/23 lactulose 10 gram/15 mL oral solution (Constulose) 06/29/23 atorvastatin 20 mg tablet 20 mg PO QHS #30 tabs 06/30/23 levothyroxine 75 mcg tablet 75 mcg PO DAILY #30 tabs 06/30/23 meloxicam 7.5 mg tablet 7.5 mg PO BID PRN arthritis pain #3 tabs 06/30/23 Physical Exam Narrative Seen and examined. Patient is very hard of hearing. Her symptoms resolved in the ED. NIH stroke scale 0. Denies dizziness, vertigo. Physical exam General: Alert, Oriented x3, Cooperative HEENT: Bilateral hard of hearing. Atraumatic, PERRLA, EOMI, Normocephalic Oral: No Gingival or Mucosal Lesions/ Ulcerations Neck: Supple, No JVD, Negative Carotid Bruits Chest wall/Lungs: Air entry diminished in bilateral lung bases. No crepitation/rhonchi Cardiovascular: Regular rate, Regular Rhythm, Normal S1, Normal S2, No M/G/R Abdomen: Bowel Sounds Present, Soft, Non Tender, Non-Distended : No dysuria. No renal angle tenderness. No suprapubic tenderness. Extremities: No edema, Capillary Refill Less than 3 Seconds Skin: No rashes, No breakdown Musculoskeletal: Right TKR has claudia. Right TKR incision well-healed. No Tenderness to Palpation of Joints or Extremities Neurological: Cranial nerves II-XII grossly intact, DTR 2+/4. No acute focal neurological deficit. Muscle strength 5/5 at major joints. NIH stroke scale 0. Psych/Mental Status: Normal Affect, Appropriate. Weight / BMI Weight Weight: 169 lb 15.622 oz Body Mass Index (BMI) 26.6 ABG / Lab / Microbiology Data 06/30/23 07:03 06/30/23 07:03 Laboratory: Laboratory Results - last 24 hr 06/29/23 16:30: WBC 13.8 H, RBC 4.37, Hgb 11.4 L, Hct 35.6 L, MCV 81.5, MCH 26.1 L, MCHC 32.0, RDW Std Deviation 44.7 H, RDW Coeff of Baudilio 14.9 H, Plt Count 712 H , MPV 9.5, Immature Gran % (Auto) 0.400, Neut % (Auto) 68.8, Lymph % (Auto) 21.4, Preble % (Auto) 7.3, Eos % (Auto) 1.7, Baso % (Auto) 0.4, Absolute Neuts (auto) 9.5 H, Absolute Lymphs (auto) 2.94, Nucleated RBC % 0, PT 13.0, INR 1.0, APTT 27.5, Sodium 138, Potassium 4.0, Chloride 109 H, Carbon Dioxide 21.0, Anion Gap 8, BUN 19 H, Creatinine 1.02, Estim Creat Clear Calc 48.17, Est GFR (MDRD) Af Amer 68, Est GFR (MDRD) Non-Af 56 L, BUN/Creatinine Ratio 18.6, Glucose 123 H , Calcium 9.2, Troponin I High Sens 8 06/30/23 07:03: WBC 10.4, RBC 3.82 L, Hgb 10.4 L, Hct 31.4 L, MCV 82.2, MCH 27 .2, MCHC 33.1, RDW Std Deviation 45.6 H, RDW Coeff of Baudilio 15.3 H, Plt Count 592 H, MPV 9.1, Immature Gran % (Auto) 0.400, Neut % (Auto) 60.3, Lymph % (Auto) 27.7, Preble % (Auto) 8.1, Eos % (Auto) 3.0, Baso % (Auto) 0.5, Absolute Neuts (auto) 6.2, Absolute Lymphs (auto) 2.87, Nucleated RBC % 0, Sodium 139, Potassium 3.9, Chloride 111 H, Carbon Dioxide 24.0, Anion Gap 4 L, BUN 14, Crea tinine 0.72, Estim Creat Clear Calc 63.03, Est GFR (MDRD) Af Amer 102, Est GFR (MDRD) Non-Af 84, BUN/Creatinine Ratio 19.5, Glucose 106, Hemoglobin A1c 6.1 H, Calcium 9.1, Triglycerides 124, Cholesterol 131, LDL Cholesterol 63, VLDL Cholesterol 25, HDL Cholesterol 43, TSH 4.99 H Radiography Diagnostic Testing: Radiology Impression Brain CT 06/29/23 16:34 IMPRESSION: Normal unenhanced CT scan of the brain. Electronically Signed: Wilder Nunez MD at 16:53 EST Reading Location ID and State: [facility] / [place] Tel , Service support , ADDENDUM: 06/29/23 1711 IMPRESSION: Normal unenhanced CT scan of the brain. N.B. : The above Results were Read Back by Wilder Nunez MD to Lazarus Flores MD, and understanding confirmed on 06/29/2023 17:04:27 (ET). Electronically Signed: Wilder Nunez MD at 16:53 EST Reading Location ID and State: [facility] [place] Tel , Service support , Head/Neck CTA 06/29/23 16:35 IMPRESSION: Normal CTA Head and neck with contrast. Electronically Signed: Wilder Nunez MD at 17:17 EST Reading Location ID and State: [facility] / [place] Tel , Service support , ADDENDUM: 06/29/23 1729 IMPRESSION: Normal CTA Head and neck with contrast. N.B. : The above Results were Read Back by Wilder Nunez MD to Lazarus Flores MD, and understanding confirmed on 06/29/2023 17:22:46 (ET). Electronically Signed: Wilder Nunez MD at 17:17 EST Reading Location ID and State: [facility] / [place] Tel , Service support , Chest X-Ray 06/29/23 18:45 IMPRESSION: Left lower lobe subsegmental atelectasis versus small interstitial infiltrate Electronically Signed: Wilder Nunez MD at 19:54 EST Reading Location ID and State: [facility] [place] Tel , Service support , Brain MRI 06/30/23 10:00 IMPRESSION: Normal MRI brain without contrast. Electronically Signed: Lazarus Conway MD at 11:40 EST , D/C Instructions Discharge Diet: No restrictions Weight Bearing Status: Weight bearing as tolerated Call your doctor if you observe: Fever of 101 or Higher, Coldness, Increased Pain, Numbness or Tingling, Change in Color, Inability to urinate, Inability to have a bowel movement, Using more than 1 pad per hour, Shortness of breath, Dizziness, Fainting spells, Swelling in the ankles, Chest pain, Prolonged hiccupping, Increased palpitations (irregular heartbeat) and Calf discomfort When: IN 2 WEEKS Meaningful Use Info Meaningful Use Diagnoses (Choose all that apply): None applicable Discharge Plan Admission Admit Date/Time: 06/29/23 17:47 Attending Provider: Jovan Rodriguez Primary Care Provider: Petty Garza Consulting Providers: Sebastien Rosenthal; Sandy Bahena; Marci Taylor; Yu Moyer; Ca Low; Derian Cardona; Suzy Tobar; Paul Jackson; Karlos Almazan; Amy Garrido; Armin Moeller; Bela Covarrubias; Kiley Ratliff; Leisa Boland; Andrew Mcwilliams; Blanka Cooper; Alexis Linton; Aspen Floyd; Haroldo Busch; Mimi Silvestre Discharge Orders/Prescriptions Prescriptions: New levothyroxine 75 mcg tablet 75 mcg PO DAILY Qty: 30 3RF Rx Instructions: 1 hour before breakfast. atorvastatin 20 mg tablet 20 mg PO QHS Qty: 30 2RF Continued latanoprost 0.005 % drops 1 drp ophthalmic (eye) DAILY clobetasol 0.05 % ointment 1 applic topical .COMPLEX Qty: 15 3RF Rx Instructions: 1 applic topically rub in small amount daily X 2 weeks then prn; sumatriptan succinate 50 MG tablet 50 mg PO PRN PRN (Reason: Headache) famotidine 20 mg tablet 20 mg PO DAILY dicyclomine 10 mg capsule 10 mg PO TID PRN (Reason: abdominal pain) Qty: 20 0RF acetaminophen 500 mg capsule 1,000 mg PO BID PRN (Reason: pain) aspirin 81 mg tablet,delayed release (DR/EC) 81 mg PO BID lactulose [Constulose] 10 gram/15 mL solution Changed meloxicam 7.5 mg tablet 7.5 mg PO BID PRN (Reason: arthritis pain) Qty: 3 0RF Discontinued simvastatin 10 MG tablet 10 mg PO DAILY levothyroxine 50 MCG tablet 50 mcg PO DAILY Other Ambulatory Orders: 30 Day Event Recorder Preventi (Urgent) Timeframe: 1 Day Facility: [facility] - Location: Cardiovascular Services Ordered By: Dr. Jovan Rodriguez Referrals / Follow Up: Petty Garza MD [Primary Care Provider] - Within 2 Weeks Freddie Arreola MD [Non-Staff -Ordering Privileges] - Within 1 Month (For TIA) Disposition Disposition (needs filled in before D/C Order can be placed): Home, Self Care Charges/Coding Visit Charges Inpatient E&M: 72511 Disch Hosp >30min
--- NOTE | 2023-06-30 13:27 | STROKE.CONS ---
Assessment and Plan: Stroke Assessment/Plan EDWIN DICKERSON is a 78 F with transient aphasia concerning for TIA. Symptoms have since resolved. Neuroimaging unremarkable. - ASA 81mg daily. - LDL sufficiently low not to require daily statin - TTE pending: assuming this has no significant findings, would send home with cardiac event monitor and outpatient follow up HPI Consult Data Date of Consult: 06/30/23 HPI Narrative HPI Narrative: EDWIN DICKERSON is a 78 F with transient aphasia concerning for TIA. Symptoms have since resolved. Neuroimaging unremarkable. [facility] Medical History (Updated 06/29/23 @ 20:47 by Emily Sanchez RN) Glaucoma High cholesterol History of migraine Hypothyroid Lichen sclerosus Migraines Home Medications sumatriptan succinate 50 mg tablet 50 mg PO PRN PRN Headache 09/28/16 [History Last Taken 09/27/16] clobetasol 0.05 % topical ointment 1 applic topical .COMPLEX #15 grams 09/01/22 [Rx Last Taken Unknown] latanoprost 0.005 % eye drops 1 drp ophthalmic (eye) DAILY eye health 09/01/22 [History Last Taken Unknown] dicyclomine 10 mg capsule 10 mg PO TID PRN abdominal pain #20 caps 06/24/23 [Rx Last Taken Unknown] famotidine 20 mg tablet 20 mg PO DAILY reflux 06/24/23 [History Last Taken Unknown] acetaminophen 500 mg capsule 1,000 mg PO BID PRN pain 06/29/23 [History Last Taken Unknown] aspirin 81 mg tablet,delayed release 81 mg PO BID heart health 06/29/23 [History Last Taken Unknown] lactulose 10 gram/15 mL oral solution (Constulose) 06/29/23 [History Last Taken Unknown] atorvastatin 20 mg tablet 20 mg PO QHS #30 tabs 06/30/23 [Rx Last Taken Unknown] levothyroxine 75 mcg tablet 75 mcg PO DAILY #30 tabs 06/30/23 [Rx Last Taken Unknown] meloxicam 7.5 mg tablet 7.5 mg PO BID PRN arthritis pain #3 tabs 06/30/23 [Rx Last Taken Unknown] Allergy/AdvReac Type Severity Reaction Status Date / Time Penicillins Allergy Intermediate Rash Verified 06/24/23 08:52 amoxicillin Allergy Mild Rash Verified 09/16/22 10:58 Family History Sister Breast cancer Mother CVA (cerebral vascular accident) Father Emphysema lung Brother CVA (cerebral vascular accident) Social History household members: spouse housing: house number of children: 0 current occupational status: retired Smoking Status: Never smoker alcohol intake: current alcohol intake frequency: holidays/special occasions only substance use type: does not use seatbelt use: always do you feel safe at home: Yes additional social history: - Owen No biological children- one adopted- Norman Vital Signs Vital Signs Vital Signs: 06/29/23 16:34 06/29/23 16:41 06/29/23 16:44 Temperature 97.7 F L 97.7 F L Temperature Source Temporal Temporal Pulse Rate 90 Respiratory Rate 16 Respiratory Effort Respiratory Depth Respiratory Pattern Blood Pressure 140/78 H Blood Pressure Mean 98 Blood Pressure Source Blood Pressure Position Blood Pressure Location Pulse Ox 100 Oxygen Delivery Method Room Air Room Air 06/29/23 16:34 06/29/23 17:04 06/29/23 17:11 Temperature Temperature Source Pulse Rate 78 82 80 Respiratory Rate 15 14 15 Respiratory Effort Respiratory Depth Respiratory Pattern Blood Pressure 151/73 H 152/82 H 152/82 H Blood Pressure Mean 99 105 105 Blood Pressure Source Blood Pressure Position Blood Pressure Location Pulse Ox 100 99 97 Oxygen Delivery Method Room Air Room Air Room Air 06/29/23 17:31 06/29/23 18:00 06/29/23 19:03 Temperature Temperature Source Pulse Rate 74 80 Respiratory Rate 16 13 Respiratory Effort Respiratory Depth Respiratory Pattern Blood Pressure 137/89 H 143/84 H Blood Pressure Mean 105 103 Blood Pressure Source Blood Pressure Position Blood Pressure Location Pulse Ox 97 94 Oxygen Delivery Method Room Air 06/29/23 19:09 06/29/23 20:10 06/29/23 20:12 Temperature 98.2 F 98 F 98 F Temperature Source Oral Oral Pulse Rate 79 75 72 Respiratory Rate 18 16 16 Respiratory Effort Respiratory Depth Respiratory Pattern Blood Pressure 141/86 H 142/80 H 142/80 H Blood Pressure Mean 104 100 100 Blood Pressure Source Monitor Monitor Blood Pressure Position Semi-Fowlers Semi-Fowlers Blood Pressure Location Left Arm Left Arm Pulse Ox 97 99 97 Oxygen Delivery Method Room Air Room Air 06/29/23 21:10 06/29/23 22:00 06/29/23 20:30 Temperature 97.6 F L Temperature Source Oral Pulse Rate 81 Respiratory Rate 16 Respiratory Effort Normal Respiratory Depth Normal Respiratory Pattern Normal Blood Pressure 128/72 H Blood Pressure Mean 90 Blood Pressure Source Monitor Blood Pressure Position Semi-Fowlers Blood Pressure Location Left Arm Pulse Ox 94 98 Oxygen Delivery Method Room Air Room Air Room Air 06/30/23 02:00 06/30/23 02:00 06/30/23 03:04 Temperature 98.4 F 98.4 F Temperature Source Oral Oral Pulse Rate 83 83 Respiratory Rate 16 16 Respiratory Effort Normal Respiratory Depth Normal Respiratory Pattern Normal Blood Pressure 126/73 H 126/73 H Blood Pressure Mean 90 90 Blood Pressure Source Monitor Monitor Blood Pressure Position Semi-Fowlers Semi-Fowlers Blood Pressure Location Left Arm Left Arm Pulse Ox 98 98 Oxygen Delivery Method Room Air Room Air Room Air 06/30/23 06:00 06/30/23 06:00 06/30/23 07:25 Temperature 98.3 F 98.3 F Temperature Source Oral Oral Pulse Rate 80 75 Respiratory Rate 16 16 Respiratory Effort Respiratory Depth Respiratory Pattern Blood Pressure 132/79 H 132/79 H Blood Pressure Mean 96 96 Blood Pressure Source Monitor Monitor Blood Pressure Position Semi-Fowlers Semi-Fowlers Blood Pressure Location Left Arm Left Arm Pulse Ox 97 95 93 Oxygen Delivery Method Room Air Room Air Room Air 06/30/23 09:32 06/30/23 10:00 06/30/23 10:00 Temperature 98.9 F 97.8 F Temperature Source Temporal Temporal Pulse Rate 86 75 75 Respiratory Rate 16 16 Respiratory Effort Respiratory Depth Respiratory Pattern Blood Pressure 112/65 119/77 Blood Pressure Mean 80 91 Blood Pressure Source Monitor Monitor Blood Pressure Position Sitting Semi-Fowlers Blood Pressure Location Left Arm Left Arm Pulse Ox 97 100 Oxygen Delivery Method Room Air Room Air 06/30/23 12:00 Temperature 97.9 F Temperature Source Temporal Pulse Rate 75 Respiratory Rate 16 Respiratory Effort Respiratory Depth Respiratory Pattern Blood Pressure 119/77 Blood Pressure Mean 91 Blood Pressure Source Monitor Blood Pressure Position Semi-Fowlers Blood Pressure Location Left Arm Pulse Ox 100 Oxygen Delivery Method Room Air Weight Weight: 77.1 kg Body Mass Index (BMI) 26.6 EEG Results Procedure Details EEG Procedure Details: EDWIN DICKERSON is a 78 year old F with a past medical history of , who presents for evaluation of Electroencephalogram on DATE at TIME NIHSS NIHSS Nursing Documentation NIHSS Nursing Documentation: NIHSS: Ischemic Stroke/TIA Start: 06/29/23 20:17 Text: For PCU Patients: NIH and Neuro Check every 4 Status: Active hours and PRN Freq: [id number] Protocol: Activity Type Activity Date Activity User E-sign Co-sign Detail Recorded Client Recorded Date Recorded By Document 06/30/23 10:00 LW Desktop 06/30/23 12:07 LW 06/30/23 10:00 NIH Stroke Scale [NIHSS] A score of 0 is normal or asymptomatic . Total possible score is 42. Inpatient: RN or Physician to activate a stroke alert for onset of new stroke symptoms or with NIHSS increase >/= 3 points. Following change in neurological status, NIHSS will be performed per physician order or more frequently PRN. -1a. Level of Consciousness Alert; keenly responsive -1b. LOC Questions Answers BOTH questions correctly. -1c. LOC Commands Performs both tasks correctly . -2. Best Gaze Normal -3. Visual No visual loss -4. Facial Palsy Normal symmetrical movements -5a. Left Arm No drift; arm holds 90 (or 45 ) degrees for full 10 seconds -5b. Right Arm No drift; arm holds 90 (or 45 ) degrees for full 10 seconds -6a. Left Leg No drift; leg holds 30-degree position for full 5 seconds -6b. Right Leg No drift; leg holds 30-degree position for full 5 seconds -7. Limb Ataxia Absent -8. Sensory Normal; no sensory loss -9. Best Language No aphasia; normal -10. Dysarthria Normal -11. Extinction and Inattention No abnormality -Total 0 Query Text:A score of 0 is normal or asymptomatic. Total possible score is 42 . ED: Notify Physician for NIHSS increase by > / = 3 points. Inpatient: RN or Physician to activate a stroke alert for NIHSS increase of > / = 3 points. Coma Scale [Assess] -Eye Opening Spontaneous -Motor Obeys Commands -Verbal Oriented [Total] -Coma Scale Total 15 Lab / Micro Data 06/30/23 07:03 06/30/23 07:03 Labs: Laboratory Results - last 24 hr 06/29/23 16:30: WBC 13.8 H, RBC 4.37, Hgb 11.4 L, Hct 35.6 L, MCV 81.5, MCH 26.1 L, MCHC 32.0, RDW Std Deviation 44.7 H, RDW Coeff of Baudilio 14.9 H, Plt Count 712 H, MPV 9.5, Immature Gran % (Auto) 0.400, Neut % (Auto) 68.8, Lymph % (Auto) 21.4, Rhea % (Auto) 7.3, Eos % (Auto) 1.7, Baso % (Auto) 0.4, Absolute Neuts (auto) 9.5 H, Absolute Lymphs (auto) 2.94, Nucleated RBC % 0, PT 13.0, INR 1.0, APTT 27.5, Sodium 138, Potassium 4.0, Chloride 109 H, Carbon Dioxide 21.0, Anion Gap 8, BUN 19 H, Creatinine 1.02, Estim Creat Clear Calc 48.17, Est GFR (MDRD) Af Amer 68, Est GFR (MDRD) Non-Af 56 L, BUN/Creatinine Ratio 18.6, Glucose 123 H, Calcium 9.2, Troponin I High Sens 8 06/30/23 07:03: WBC 10.4, RBC 3.82 L, Hgb 10.4 L, Hct 31.4 L, MCV 82.2, MCH 27.2, MCHC 33.1, RDW Std Deviation 45.6 H, RDW Coeff of Baudilio 15.3 H, Plt Count 592 H, MPV 9.1, Immature Gran % (Auto) 0.400, Neut % (Auto) 60.3, Lymph % (Auto) 27.7, Rhea % (Auto) 8.1, Eos % (Auto) 3.0, Baso % (Auto) 0.5, Absolute Neuts (auto) 6.2, Absolute Lymphs (auto) 2.87, Nucleated RBC % 0, Sodium 139, Potassium 3.9, Chloride 111 H, Carbon Dioxide 24.0, Anion Gap 4 L, BUN 14, Creatinine 0.72, Estim Creat Clear Calc 63.03, Est GFR (MDRD) Af Amer 102, Est GFR (MDRD) Non-Af 84, BUN/Creatinine Ratio 19.5, Glucose 106, Hemoglobin A1c 6.1 H, Calcium 9.1, Triglycerides 124, Cholesterol 131, LDL Cholesterol 63, VLDL Cholesterol 25, HDL Cholesterol 43, TSH 4.99 H Imaging Radiology Impression Brain CT 06/29/23 16:34 IMPRESSION: Normal unenhanced CT scan of the brain. Electronically Signed: Wilder Nunez MD at 16:53 EST Reading Location ID and State: [address] [place] [address] Tel , Service support , ADDENDUM: 06/29/23 1711 IMPRESSION: Normal unenhanced CT scan of the brain. N.B. : The above Results were Read Back by Wilder Nunez MD to Lazarus Flores MD, and understanding confirmed on 06/29/2023 17:04:27 (ET). Electronically Signed: Wilder Nunez MD at 16:53 EST Reading Location ID and State: [address] [place] [address] Tel , Service support , Head/Neck CTA 06/29/23 16:35 IMPRESSION: Normal CTA Head and neck with contrast. Electronically Signed: Wilder Nunez MD at 17:17 EST Reading Location ID and State: [address] [place] [address] Tel , Service support , ADDENDUM: 06/29/23 1729 IMPRESSION: Normal CTA Head and neck with contrast. N.B. : The above Results were Read Back by Wilder Nunez MD to Lazarus Flores MD, and understanding confirmed on 06/29/2023 17:22:46 (ET). Electronically Signed: Wilder Nunez MD at 17:17 EST Reading Location ID and State: [address] [place] [address] Tel , Service support , Chest X-Ray 06/29/23 18:45 IMPRESSION: Left lower lobe subsegmental atelectasis versus small interstitial infiltrate Electronically Signed: Wilder Nunez MD at 19:54 EST , Brain MRI 06/30/23 10:00 IMPRESSION: Normal MRI brain without contrast. Electronically Signed: Lazarus Conway MD at 11:40 EST , Active Medications Active Medications Active Medications: Current Medications Generic Name Dose Route Start Last Admin Trade Name Freq PRN Reason Stop Dose Admin Acetaminophen 650 mg 06/29/23 20:17 06/29/23 22:54 Acetaminophen 325 Mg Tablet PO 650 mg Q6H PRN PRN Administration Pain 1-10 Or Fever >100.7 Albuterol Sulfate 2.5 mg 06/29/23 20:17 Albuterol 2.5 Mg/3 Ml Vial.Neb. INHALATION Q2H PRN PRN SOB/Wheezing Aspirin 81 mg 06/30/23 08:00 06/30/23 09:39 Aspirin 81 Mg Tab.Chew PO 81 mg BREAKFAST SANAM Administration Atorvastatin Calcium 40 mg 06/29/23 22:00 06/29/23 22:56 Atorvastatin Calcium 40 Mg Tablet PO 40 mg QHS SANAM Administration Enoxaparin Sodium 40 mg 06/30/23 10:00 06/30/23 09:39 Enoxaparin 40 Mg/0.4 Ml Syringe SC 40 mg DAILY SANAM Administration Hydralazine HCl 5 mg 06/29/23 20:17 Hydralazine 20 Mg/Ml Vial IV Q30M PRN to maintain BP goals Sodium Chloride 250 mls @ 15 mls/hr 06/29/23 20:47 IV .[id number] PRN Additional IVPB Infusion Sodium Chloride 250 mls @ 15 mls/hr 06/29/23 20:47 IV .[id number] PRN Saline Flush Labetalol HCl 10 - 20 mg 06/29/23 20:17 Labetalol (Prefilled) 20 Mg/4 Ml IV Q10M PRN PRN to Maintain BP Goals Latanoprost 1 drp 06/29/23 22:45 06/29/23 22:55 Latanoprost 0.005% 1 Bottle OPHTHALMIC 1 drp QHS SANAM Administration Levothyroxine Sodium 50 mcg 06/30/23 06:00 06/30/23 06:21 Levothyroxine 50 Mcg Tablet PO 50 mcg 0600 SANAM Administration Melatonin 3 mg 06/29/23 20:17 Melatonin 3 Mg Tablet PO QHS PRN PRN INSOMNIA Ondansetron HCl 4 mg 06/29/23 20:17 Ondansetron 4 Mg/2 Ml Vial IV Q8H PRN PRN NAUSEA/VOMITING Senna/Docusate Sodium 2 tablet 06/29/23 20:17 Senna/Docusate Sodium 1 Tablet PO BID PRN PRN Constipation Sodium Chloride 10 - 40 ml 06/29/23 20:47 0.9% Saline Lock 10 Ml Syringe IV UD PRN SALINE FLUSH
--- NOTE | 2023-06-30 14:07 | CASEMGMT ---
Patient has order for discharge. RN CM in to discuss needs at discharge. Patient and family deny needs at discharge. Patient had no further questions or concerns.
[2023-06-30 14:11] LABS: T4 Free Direct 1.14 ng/dL (0.76-1.46)
== END 2023-06-30 12:35 | disposition home or self-care (01) ==
LOC: ED 17:34 → PCU 18:39
PROVIDERS: Admitting Provider Internal Medicine; Emergency Provider Emergency Medicine; PCP Family Medicine; Referring Provider Internal Medicine; Visit Provider Internal Medicine
DX: R47.01 Aphasia (principal); E78.00 Pure hypercholesterolemia, unspecified; R41.0 Disorientation, unspecified; E03.9 Hypothyroidism, unspecified; L90.0 Lichen sclerosus et atrophicus; Z79.899 Other long term (current) drug therapy; Z79.890 Hormone replacement therapy; R47.81 Slurred speech; G43.909 Migraine, unspecified, not intractable, without status migrainosus
CPT/HCPCS: 36415; 70450; 70496; 70498; 70551; 71045; 80048; 80061; 83036; 84439; 84443; 84484; 85025; 85610; 85730; 93005; 93306; 94762; 96372; 97161; 97166; 99221; 99285; Q9967; G0378

== ENCOUNTER → 2024-03-28 | Outpatient (CLI) | payer MEDICARE, SELFPAY ==
--- NOTE | 2024-03-28 15:10 | BI_ITS ---
MAMMOGRAPHY - BILATERAL SCREENING REASON FOR EXAM: Female, 78 years old. Routine annual screening examination. PERTINENT HISTORY: Sister with breast cancer. TECHNIQUE: Digital bilateral breast dian (3D mammographic acquisition) in the CC and MLO projections. 2-D mediolateral oblique (MLO) and craniocaudad (CC) views of both breasts were obtained. CAD: Full Field Digital Mammography with Computer Added Detection was performed. COMPARISON: Comparison is made with prior study dated March 23, 2023 and March 17, 2022. FINDINGS: Breast Composition: The breasts are almost entirely fatty. There are no dominant masses or suspicious calcifications. Stable bilateral fat containing axillary lymph nodes. No other significant abnormalities are identified. There has been no significant change since the prior study. BI/SCRN MAMM (CAD)W/DIAN BILAT IMPRESSION: Stable bilateral screening mammogram. Yearly follow-up mammogram recommended. (A) ASSESSMENT CATEGORY: BIRADS Category 2: Benign. A letter regarding these results will be sent to the patient by the facility within 30 days. Approximately 10% of breast cancers are not detected by mammography. A normal mammogram should not delay biopsy of a clinically suspicious abnormality. [id number] Electronically Signed: Biju Ovalle MD at 15:45 EST ,
== END | disposition home or self-care (01) ==
LOC: OPBI 15:10
PROVIDERS: PCP Family Medicine; Referring Provider Family Medicine; Visit Provider Family Medicine
DX: Z12.31 Encounter for screening mammogram for malignant neoplasm of breast (principal)
CPT/HCPCS: 77063; 77067

== ENCOUNTER → 2025-02-18 | Outpatient (CLI) | payer MEDICARE, SELFPAY ==
[2025-02-18 17:42] LABS: Hematocrit 37.5 % (37-47); Hemoglobin 12.3 g/dL (12.0-15.0); Mean Corp Hgb Conc 32.8 g/dL (32-36); Mean Corpuscular Volume 83.0 fL (81-99); Mean Platelet Vol. 10.9 fl (6.2-12.0); Platelet Count 351 K/mm3 (150-450); RBC Distribution Width CV 15.3 % (11.6-14.6); RBC Distribution Width SD 46.5 fl (35.1-43.9); Red Blood Count 4.52 M/mm3 (4.2-5.4); White Blood Count 6.9 K/mm3 (4.4-11.0)
[2025-02-18 18:38] LABS: AST(SGOT) 19 U/L (<=31); Alanine Aminotransfer ALT/SGPT 10 U/L (<=34); Albumin, Serum 4.0 g/dL (3.4-4.8); Alkaline Phosphatase 91 U/L (35-104); Anion Gap 11 (5-15); BUN 19 mg/dL (4-19); BUN/Creat Ratio 21.9 RATIO (10-20); Calcium,Total 9.3 mg/dL (7.6-11.0); Carbon Dioxide 23.3 mmol/L (21.0-32.0); Chloride 105 mmol/L (98-108); Cholesterol 168 mg/dL (<=200); Ferritin 277 ng/mL (22-378); Globulin 3.3 g/dL (2.2-4.2); Glucose 97 mg/dL (70-99); Low Density Lipoprotein Calc. 77 mg/dL; Potassium 3.9 mmol/L (3.3-5.1); Triglycerides 157 mg/dL; Very Low Density Lipoprotein 31 mg/dL (5-40); Vitamin D,25 Hydroxy 39.1 ng/mL (30-100); cholesterol:hdl ratio screen 2.81
[2025-02-18 18:58] LABS: Iron 93 ug/dL (50-170); Iron Binding Capacity,Total 273 ug/dL (250-450); Iron Binding Capacity,Unsat 180 ug/dL (228-428)
== END | disposition home or self-care (01) ==
LOC: MFPLAB 15:36
PROVIDERS: PCP Family Medicine; Visit Provider Family Medicine
DX: D64.9 Anemia, unspecified (principal); E55.9 Vitamin D deficiency, unspecified; E78.00 Pure hypercholesterolemia, unspecified; R73.03 Prediabetes; E03.9 Hypothyroidism, unspecified
CPT/HCPCS: 36415; 80053; 80061; 82306; 82728; 83036; 83540; 83550; 84443; 85027

== ENCOUNTER → 2025-04-08 | Outpatient (CLI) | payer MEDICARE, SELFPAY ==
--- NOTE | 2025-04-08 13:45 | BI_ITS ---
EXAM: SCRN MAMM (CAD)W/DIAN BILAT DATE: 04/08/2025 CLINICAL HISTORY: F, Age 79 y/o , ANNUAL TECHNIQUE: Procedure Code: [id number] Modality: MG Procedure: SCRN MAMM (CAD)W/DIAN BILAT COMPARISON: Prior exam(s) dated mammogram dated 03/28/2024, 03/23/2023, and 03/17/2022. FINDINGS: TISSUE DENSITY: There are scattered areas of fibroglandular density. Bilateral Breast Mammographic Findings: There are no suspicious masses, suspicious cluster of microcalcifications, architectural distortion or secondary signs of malignancy identified in either breast. Benign-appearing round microcalcifications are seen in both breasts. Stable benign-appearing intramammary lymph nodes are seen in both breasts. BI/SCRN MAMM (CAD)W/DIAN BILAT IMPRESSION: Benign screening mammogram. OVERALL FINAL ASSESSMENT BI-RADS 2: BENIGN RECOMMENDATION: Routine annual follow-up in 1 Year Additional Recommendation none A letter with findings and recommendations will be mailed to the patient. Reading Location: [id number]
--- OUTSIDE RECORDS SUMMARY | 2025-04-08 19:11 | XMS RPT_ITS | CCD ---
Author Organization [facility] Care Team Providers Care Welding Operator Name Role Phone Dr. Petty Garza Primary Care Provider [phone] Jerod Renee Attending Provider Dr. Lázaro Solitario Referring Provider [phone] Petty Garza Primary Care Unavailable Petty Garza Attending Unavailable Petty Garza Referring Unavailable Sajan Espitia Attending Unavailable Petty Garza Primary Care Unavailable Sajan Espitia Primary Care Unavailable Sajan Espitia Attending Unavailable Sajan Espitia Referring Unavailable Allergies Allergy Classification Reported Allergen(s) Allergy Type Date of Onset Reaction(s) Facility (6 sources) Amoxicillin Drug Allergy 09-16-2022 [facility] (3 sources) Penicillins Allergy to substance 06-24-2023 [facility] (1 source) Amoxicillin Drug Allergy 09-16-2022 [facility] (1 source) Penicillins Drug allergy (disorder) 06-24-2023 [facility] Medications Current Medications Medication Drug Class(es) Dates Sig (Normalized) Sig (Original) acetaminophen 500 mg oral capsule (2 sources) Start: 06-29-2023 take 1000 mg by mouth twice daily Acetaminophen Active 1000 MG PO TWICE A DAY June 29, 2023 12:00am aspirin 81 mg delayed release oral tablet (10 sources) Platelet Aggregation Inhibitor, Nonsteroidal Anti-inflammatory Drug Start: 06-29-2023 take 81 mg by mouth twice daily Aspirin Active 81 MG PO TWICE A DAY June 29, 2023 12:00am Start: 11-08-2020 End: 09-01-2022 take 81 mg by mouth once daily Aspirin Discontinued 81 MG PO DAILY November 07, 2020 11:00pm September 01, 2022 9:15am atorvastatin 20 mg oral tablet (1 source) HMG-CoA Reductase Inhibitor Start: 06-30-2023 take 20 mg by mouth at bedtime Atorvastatin Active 20 MG PO AT BEDTIME June 30, 2023 12:00am clobetasol propionate 0.0005 mg/mg topical ointment (12 sources) Corticosteroid Start: 09-01-2022 End: 09-01-2022 Clobetasol Active 1 APPLIC TOPICAL .COMPLEX September 01, 2022 9:26am 1 applic topically rub in small amount daily X 2 weeks then prn; dicyclomine hydrochloride 10 mg oral capsule (3 sources) Anticholinergic Start: 06-24-2023 take 10 mg by mouth three times daily Dicyclomine Active 10 MG PO THREE TIMES A DAY June 24, 2023 3:34pm famotidine 20 mg oral tablet (3 sources) Histamine-2 Receptor Antagonist Start: 06-24-2023 take 20 mg by mouth once daily Famotidine Active 20 MG PO DAILY June 24, 2023 12:00am lactulose 667 mg/ml oral solution (5 sources) Osmotic Laxative Start: 06-29-2023 Lactulose (Constulose) 10 gram/15 mL solution Active June 29, 2023 12:00am Start: 06-24-2023 End: 06-29-2023 take 1 mL by mouth twice daily Lactulose Discontinued 15 ML PO TWICE A DAY June 24, 2023 3:31pm June 29, 2023 4:38pm latanoprost 0.05 mg/ml ophthalmic solution (6 sources) Prostaglandin Analog Start: 09-01-2022 Latanoprost Active 1 DRP OPHTHALMIC DAILY August 31, 2022 11:00pm levothyroxine sodium 0.075 mg oral tablet (9 sources) l-Thyroxine Start: 06-30-2023 take 75 ug by mouth once daily 1 hour(s) before breakfast Levothyroxine Active 75 MCG PO DAILY June 30, 2023 12:00am 1 hour before breakfast. Start: 09-28-2016 End: 06-30-2023 take 50 ug by mouth once daily Levothyroxine Discontin ued 50 MCG PO DAILY September 27, 2016 11:00pm June 30, 2023 12:36pm meloxicam 7.5 mg oral tablet (10 sources) Nonsteroidal Anti-inflammatory Drug Start: 06-24-2023 End: 06-30-2023 take 7.5 mg by mouth twice daily Meloxicam Active 7.5 MG PO TWICE A DAY 3 June 30, 2023 12:40pm Start: 09-01-2022 End: 06-29-2023 take 15 mg by mouth once daily Meloxicam Discontinued 15 MG PO DAILY August 31, 2022 11:00pm June 29, 2023 4:38pm SUMAtriptan 50 mg oral tablet (8 sources) Serotonin-1b and Serotonin-1d Receptor Agonist Start: 09-28-2016 Sumatriptan Succinat e Active 50 MG PO NEEDED September 27, 2016 11:00pm Completed/Discontinued Medications Medication Drug Class(es) Dates Sig (Normalized) Sig (Original) diazePAM 2 mg oral tablet (8 sources) Benzodiazepine Start: 09-28-2016 End: 09-01-2022 take 2 mg by mouth three times daily as needed Diazepam Discontinued 2 MG PO 3 TIMES DAILY NEEDED September 27, 2016 11:00pm September 01, 2022 9:15am estradiol 0.1 mg/ml vaginal cream (6 sources) Estrogen Start: 09-01-2022 End: 06-29-2023 Estradiol Discontinued 0 VAGINAL .COMPLEX 42.5 August 31, 2022 11:00pm June 29, 2023 4:38pm small amount as directed vaginal every other day X 4 weeks then twice a week; simvastatin 10 mg oral tablet (8 sources) HMG-CoA Reductase Inhibitor Start: 09-28-2016 End: 06-30-2023 take 10 mg by mouth once daily Simvastatin Discontinued 10 MG PO DAILY September 27, 2016 11:00pm June 30, 2023 12:38pm Problems Problem Classification Problem Date Documented Da te Episodic/Chronic Abdominal pain (3 sources) Finding of sensation of abdomen; Translations: [Unspecified abdominal pain] 06-24-2023 Episodic Deficiency and other anemia (1 source) Anemia, unspecified; Translations: [Anemia, unspecified] Onset: 03-01-2025 Episodic Glaucoma (6 sources) Glaucoma; Translations: [Unspecified glaucoma] 09-01-2022 Chronic Menopausal disorders (6 sources) Atrophic vaginitis; Translations: [Postmenopausal atrophic vaginitis] 09-16-2022 Chronic Nonspecific chest pain (8 sources) Chest pain; Translations: [Chest pain, unspecified] 11-08-2020 Episodic Other female genital disorders (6 sources) Lesion of vulva; Translations: [Other specified noninflammatory disorders of vulva and perineum] 09-16-2022 Episodic Other gastrointestinal disorders (3 sources) Constipation; Translations: [Constipation, unspecified] 06-24-2023 Episodic Other nervous system disorders (2 sources) Expressive dysphasia; Translations: [Aphasia] 06-29-2023 Chronic Other nervous system disorders (2 sources) Aphasia; Translations: [Aphasia] 06-29-2023 Chronic Other nervous system disorders (2 sources) H/O: migraine; Translations: [Personal history of other diseases of the nervous system and sense organs] 06-29-2023 Episodic Other nervous system disorders (2 sources) Dysarthria; Translations: [Dysarthria and anarthria] 06-29-2023 Episodic Other nervous system disorders (2 sources) Dysarthria and anarthria; Translations: [Dysarthria] 06-29-2023 Episodic Other nervous system disorders (2 sources) Personal history of other diseases of the nervous system and sense organs; Translations: [Personal history of other disorders of nervous system and sense organs] 06-29-2023 Episodic Other screening for suspected conditions (not mental disorders or infectious disease) (2 sources) Encounter for screening mammogram for malignant neoplasm of breast; Translations: [Encounter for screening mammogram for malignant neoplasm of breast] Onset: 04-26-2024 Episodic Other skin disorders (6 sources) Lichen sclerosus et atrophicus; 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 Thyroid disorders (4 sources) Hypothyroidism; Translations: [Hypothyroidism, unspecified] 06-29-2023 Chronic Transient cerebral ischemia (4 sources) Transient cerebral ischemia; Translations: [Transient cerebral ischemic attack, unspecified] 06-29-2023 Chronic Results Test Name Value Interpretation Reference Range Facility CBC-Complete Blood Cnt No Di ffon 02-18-2025 Erythrocyte distribution width (RBC) [Ratio] 15.3 % High 11.6-14.6 [facility] Comment on above: Order Comment: Order Date: 02/18/25 Order Info: [id number] - CBC Performed By: #### L 500.4050, L500.4100, L501.9520, L501.9985, L100.0500, L503.6550, L503.6030 #### [facility] [address] [place], [address] Hematocrit (Bld) [Volume fraction] 37.5 % Normal 37-47 [facility] Comment on above: Order Comment: Order Date: 02/18/25 Order Info: [id number] - CBC Performed By: #### L 500.4050, L500.4100, L501.9520, L501.9985, L100.0500, L503.6550, L503.6030 #### [facility] [address] [place], [address] Hemoglobin (Bld) [Mass/Vol] 12.3 g/dL Normal 12.0-15.0 [facility] Comment on above: Order Comment: Order Date: 02/18/25 Order Info: [id number] - CBC Performed By: #### L 500.4050, L500.4100, L501.9520, L501.9985, L100.0500, L503.6550, L503.6030 #### [facility] [address] [place], [address] MCH (RBC) [Entitic mass] 27.2 pg Normal 27.0-32.0 [facility] Comment on above: Order Comment: Order Date: 02/18/25 Order Info: [id number] - CBC Performed By: #### L 500.4050, L500.4100, L501.9520, L501.9985, L100.0500, L503.6550, L503.6030 #### [facility] [address] [place], [address] MCHC (RBC) [Mass/Vol] 32.8 g/dL Normal 32-36 [facility] Comment on above: Order Comment: Order Date: 02/18/25 Order Info: [id number] - CBC Performed By: #### L 500.4050, L500.4100, L501.9520, L501.9985, L100.0500, L503.6550, L503.6030 #### [facility] [address] [place], [address] MCV (RBC) [Entitic vol] 83.0 fL Normal 81-99 [facility] Comment on above: Order Comment: Order Date: 02/18/25 Order Info: [id number] - CBC Performed By: #### L 500.4050, L500.4100, L501.9520, L501.9985, L100.0500, L503.6550, L503.6030 #### [facility] [address] [place], [address] Platelet mean volume (Bld) [Entitic vol] 10.9 fL Normal 6.2-12.0 [facility] Comment on above: Order Comment: Order Date: 02/18/25 Order Info: [id number] - CBC Performed By: #### L 500.4050, L500.4100, L501.9520, L501.9985, L100.0500, L503.6550, L503.6030 #### [facility] [address] [place], [address] Platelets (Bld) [#/Vol] 351 10*3/uL Normal 150-450 [facility] Comment on above: Order Comment: Order Date: 02/18/25 Order Info: [id number] - CBC Performed By: #### L 500.4050, L500.4100, L501.9520, L501.9985, L100.0500, L503.6550, L503.6030 #### [facility] [address] [place], [address] RBC (Bld) [#/Vol] 4.52 10*6/uL Normal 4.2-5.4 [facility] Comment on above: Order Comment: Order Date: 02/18/25 Order Info: [id number] - CBC Performed By: #### L 500.4050, L500.4100, L501.9520, L501.9985, L100.0500, L503.6550, L503.6030 #### [facility] [address] [place], [address] RDW SD 46.5 fl High 35.1-43.9 [facility] Comment on above: Order Comment: Order Date: 02/18/25 Order Info: [id number] - CBC Performed By: #### L 500.4050, L500.4100, L501.9520, L501.9985, L100.0500, L503.6550, L503.6030 #### [facility] [address] [place], [place], [id number] WBC (Bld) [#/Vol] 6.9 10*3/uL Normal 4.4-11.0 [facility] Comment on above: Order Comment: Order Date: 02/18/25 Order Info: [id number] - CBC Performed By: #### L 500.4050, L500.4100, L501.9520, L501.9985, L100.0500, L503.6550, L503.6030 #### [facility] [address] [place], [address] Comprehensive Metabolic Prof ilon 02-18-2025 Albumin [Mass/Vol] 4.0 g/dL Normal 3.4-4.8 [facility] Comment on above: Order Comment: Order Date: 02/18/25 Order Info: [id number] - CMP Order Info: [id number] - LIPID Order Info: [id number] - TSH Order Info: [id number] - IBC Order Info: [id number] - JJ Performed By: #### L 500.4050, L500.4100, L501.9520, L501.9985, L100.0500, L503.6550, L503.6030 #### [facility] [address] [place], [address] Albumin/Globulin [Mass ratio] 1.2 {ratio} Normal 0.9-2.4 [facility] Comment on above: Order Comment: Order Date: 02/18/25 Order Info: 785- - CMP Order Info: [id number] - LIPID Order Info: 3 - TSH Order Info: [id number] - IBC Order Info: [id number] - JJ Performed By: #### L 500.4050, L500.4100, L501.9520, L501.9985, L100.0500, L503.6550, L503.6030 #### [facility] [address] [place], [place], [id number] [phone] ALK PHOS 91 U/L Normal 35-104 [facility] Comment on above: Order Comment: Order Date: 02/18/25 Order Info: 785-05 - CMP Order Info: - LIPID Order Info: [id number] - TSH Order Info: - IB Order Info: 4 - JJ Performed By: #### L 500.4050, L500.4100, L501.9520, L501.9985, L100.0500, L503.6550, L503.6030 #### [facility] [address] [place], [address] ALT [Catalytic activity/Vol] 10 U/L Normal <=34 [facility] Comment on above: Order Comment: Order Date: 02/18/25 Order Info: 785-05 - CMP Order Info: - LIPID Order Info: [id number] - TSH Order Info: [id number] - IBC Order Info: [id number] - JJ Performed By: #### L 500.4050, L500.4100, L501.9520, L501.9985, L100.0500, L503.6550, L503.6030 #### [facility] [address] [place], [place], [id number] [phone] AST [Catalytic activity/Vol] 19 U/L Normal <=31 [facility] Comment on above: Order Comment: Order Date: 02/18/25 Order Info: 785-05 - CMP Order Info: - LIPID Order Info: 3 - TSH Order Info: [id number] - IBC Order Info: 6-4 - JJ Performed By: #### L 500.4050, L500.4100, L501.9520, L501.9985, L100.0500, L503.6550, L503.6030 #### [facility] [address] [place], [address] Bilirubin [Mass/Vol] 0.54 mg/dL Normal 0.00-1.30 [facility] Comment on above: Order Comment: Order Date: 02/18/25 Order Info: 785-05 - CMP Order Info: - LIPID Order Info: [id number] - TSH Order Info: [id number] - IBC Order Info: [id number] - JJ Performed By: #### L 500.4050, L500.4100, L501.9520, L501.9985, L100.0500, L503.6550, L503.6030 #### [facility] [address] [place], [address] BUN/CRE 21.9 RATIO High 10-20 [facility] Comment on above: Order Comment: Order Date: 02/18/25 Order Info: 785-05 - CMP Order Info: - LIPID Order Info: [id number] - TSH Order Info: [id number] - IBC Order Info: [id number] - JJ Performed By: #### L 500.4050, L500.4100, L501.9520, L501.9985, L100.0500, L503.6550, L503.6030 #### [facility] [address] [place], [address] Calcium [Mass/Vol] 9.3 mg/dL Normal 7.6-11.0 [facility] Comment on above: Order Comment: Order Date: 02/18/25 Order Info: 785-05 - CMP Order Info: - LIPID Order Info: [id number] - TSH Order Info: - IBC Order Info: 4 - JJ Performed By: #### L 500.4050, L500.4100, L501.9520, L501.9985, L100.0500, L503.6550, L503.6030 #### [facility] [address] [place], [address] Chloride [Moles/Vol] 105 mmol/L Normal 98-108 [facility] Comment on above: Order Comment: Order Date: 02/18/25 Order Info: 785-05 - CMP Order Info: - LIPID Order Info: [id number] - TSH Order Info: - IBC Order Info: 4 - JJ Performed By: #### L 500.4050, L500.4100, L501.9520, L501.9985, L100.0500, L503.6550, L503.6030 #### [facility] [address] [place], [address] CO2 [Moles/Vol] 23.3 mmol/L Normal 21.0-32.0 [facility] Comment on above: Order Comment: Order Date: 02/18/25 Order Info: 785-05 - CMP Order Info: - LIPID Order Info: [id number] - TSH Order Info: - IBC Order Info: 4 - JJ Performed By: #### L 500.4050, L500.4100, L501.9520, L501.9985, L100.0500, L503.6550, L503.6030 #### [facility] [address] [place], [address] Creatinine [Mass/Vol] 0.85 mg/dL Normal 0.70-1.20 [facility] Comment on above: Order Comment: Order Date: 02/18/25 Order Info: 0786-1 - CMP Order Info: - LIPID Order Info: [id number] - TSH Order Info: - IBC Order Info: [id number] - JJ Performed By: #### L 500.4050, L500.4100, L501.9520, L501.9985, L100.0500, L503.6550, L503.6030 #### [facility] [address] [place], [address] GAP 11 Normal 5-15 [facility] Comment on above: Order Comment: Order Date: 02/18/25 Order Info: 785-05 - CMP Order Info: - LIPID Order Info: [id number] - TSH Order Info: - IB Order Info: [id number] - JJ Performed By: #### L 500.4050, L500.4100, L501.9520, L501.9985, L100.0500, L503.6550, L503.6030 #### [facility] [address] [place], [address] GFR/1.73 sq M.predicted among non-blacks MDRD (S/P/Bld) [Vol rate/Area] 70 mL/min/{1.73_m2} Normal >60 [facility] Comment on above: Order Comment: Order Date: 02/18/25 Order Info: 785-05 - CMP Order Info: - LIPID Order Info: [id number] - TSH Order Info: - IBC Order Info: 2275-08 - JJ Result Comment: mL/m in/1.73m2 CKD-EPI Creatinine Equation (2020) Performed By: #### L 500.4050, L500.4100, L501.9520, L501.9985, L100.0500, L503.6550, L503.6030 #### [facility] [address] [place], [address] Globulin (S) [Mass/Vol] 3.3 g/dL Normal 2.2-4.2 [facility] Comment on above: Order Comment: Order Date: 02/18/25 Order Info: 785-05 - CMP Order Info: - LIPID Order Info: 3015-07 - TSH Order Info: [id number] - IBC Order Info: 2275-4 - JJ Performed By: #### L 500.4050, L500.4100, L501.9520, L501.9985, L100.0500, L503.6550, L503.6030 #### [facility] [address] [place], [address] Glucose [Mass/Vol] 97 mg/dL Normal 70-99 [facility] Comment on above: Order Comment: Order Date: 02/18/25 Order Info: 785-05 - CMP Order Info: - LIPID Order Info: [id number] - TSH Order Info: - IBC Order Info: 4 - JJ Performed By: #### L 500.4050, L500.4100, L501.9520, L501.9985, L100.0500, L503.6550, L503.6030 #### [facility] [address] [place], [address] Potassium [Moles/Vol] 3.9 mmol/L Normal 3.3-5.1 [facility] Comment on above: Order Comment: Order Date: 02/18/25 Order Info: 785-05 - CMP Order Info: - LIPID Order Info: 3015-07 - TSH Order Info: [id number] - IBC Order Info: 2275-4 - JJ Performed By: #### L 500.4050, L500.4100, L501.9520, L501.9985, L100.0500, L503.6550, L503.6030 #### [facility] [address] [place], [address] Sodium [Moles/Vol] 139 mmol/L Normal 133-145 [facility] Comment on above: Order Comment: Order Date: 02/18/25 Order Info: 0786- - CMP Order Info: - LIPID Order Info: [id number] - TSH Order Info: [id number] - IBC Order Info: 2275-4 - JJ Performed By: #### L 500.4050, L500.4100, L501.9520, L501.9985, L100.0500, L503.6550, L503.6030 #### [facility] [address] [place], [place], [id number] T PROT 7.3 g/dL Normal 5.9-8.4 [facility] Comment on above: Order Comment: Order Date: 02/18/25 Order Info: 785-05 - CMP Order Info: - LIPID Order Info: 3015-07 - TSH Order Info: [id number] - IBC Order Info: 4 - JJ Performed By: #### L 500.4050, L500.4100, L501.9520, L501.9985, L100.0500, L503.6550, L503.6030 #### [facility] [address] [place], [place], [address] Urea nitrogen [Mass/Vol] 19 mg/dL Normal 4-19 [facility] Comment on above: Order Comment: Order Date: 02/18/25 Order Info: 0786- - CMP Order Info: - LIPID Order Info: [id number] - TSH Order Info: [id number] - IBC Order Info: 2275-4 - JJ Performed By: #### L 500.4050, L500.4100, L501.9520, L501.9985, L100.0500, L503.6550, L503.6030 #### [facility] [address] [place], [place], [address] Ferritinon 02-18-2025 Ferritin [Mass/Vol] 277 ng/mL Normal 22-378 [facility] Comment on above: Order Comment: Order Date: 02/18/25 Order Info: 07- - CMP Order Info: [id number] - LIPID Order Info: 3015-07 - TSH Order Info: [id number] - IBC Order Info: 2275-08 - JJ Performed By: #### L 500.4050, L500.4100, L501.9520, L501.9985, L100.0500, L503.6550, L503.6030 #### [facility] [address] [place], [address] Hemoglobin A1con 02-18-2025 HbA1c (Bld) [Mass fraction] 6.0 % High <=5.6 [facility] Comment on above: Order Comment: Order Date: 02/18/25 Order Info: [id number] - A1C Result Comment: Norm al < 5.7 % Prediabetic 5.7 - 6.4 % Diabetic >or= 6.5 % Please note range changes. Performed By: #### L 500.4050, L500.4100, L501.9520, L501.9985, L100.0500, L503.6550, L503.6030 #### [facility] [address] [place], [place], [id number] [phone] Iron+Iron Binding Capacityon 02-18-2025 Iron [Mass/Vol] 93 ug/dL Normal 50-170 [facility] Comment on above: Order Comment: Order Date: 02/18/25 Order Info: 0786- - CMP Order Info: [id number] - LIPID Order Info: [id number] - TSH Order Info: [id number] - IBC Order Info: 2275-08 - JJ Performed By: #### L 500.4050, L500.4100, L501.9520, L501.9985, L100.0500, L503.6550, L503.6030 #### [facility] [address] [place], [place], [id number] IRON SATURATION 34.1 Normal 13-59 [facility] Comment on above: Order Comment: Order Date: 02/18/25 Order Info: 07 - CMP Order Info: - LIPID Order Info: [id number] - TSH Order Info: - IBC Order Info: 4 - JJ Performed By: #### L 500.4050, L500.4100, L501.9520, L501.9985, L100.0500, L503.6550, L503.6030 #### [facility] [address] [place], [address] TIBC 273 ug/dL Normal 250-450 [facility] Comment on above: Order Comment: Order Date: 02/18/25 Order Info: 785- - CMP Order Info: - LIPID Order Info: [id number] - TSH Order Info: - IBC Order Info: 4 - JJ Performed By: #### L 500.4050, L500.4100, L501.9520, L501.9985, L100.0500, L503.6550, L503.6030 #### [facility] [address] [place], [address] UIBC 180 ug/dL Low 228-428 [facility] Comment on above: Order Comment: Order Date: 02/18/25 Order Info: 785-05 - CMP Order Info: - LIPID Order Info: [id number] - TSH Order Info: - IBC Order Info: 4 - JJ Performed By: #### L 500.4050, L500.4100, L501.9520, L501.9985, L100.0500, L503.6550, L503.6030 #### [facility] [address] [place], [address] Lipid Profileon 02-18-2025 CHOL:HDL 2.81 Normal [facility] Comment on above: Order Comment: Order Date: 02/18/25 Order Info: 86-1 - CMP Order Info: - LIPID Order Info: [id number] - TSH Order Info: - IBC Order Info: 4 - JJ Performed By: #### L 500.4050, L500.4100, L501.9520, L501.9985, L100.0500, L503.6550, L503.6030 #### [facility] [address] [place], [address] Cholesterol [Mass/Vol] 168 mg/dL Normal <=200 [facility] Comment on above: Order Comment: Order Date: 02/18/25 Order Info: 0786-1 - CMP Order Info: [id number] - LIPID Order Info: 3013 - TSH Order Info: [id number] - IBC Order Info: 2275-08 - JJ Result Comment: Chol esterol level, Desirable <200 mg/dL Borderline high cholesterol 200-239 mg/dL High cholesterol >=240 mg/dL Recommendations of the NCEP Adult Treatment Panel for the following risk-cutoff thresholds for the [place] population. Performed By: #### L 500.4050, L500.4100, L501.9520, L501.9985, L100.0500, L503.6550, L503.6030 #### [facility] [address] [place], [address] Cholesterol in HDL [Mass/Vol] 60 mg/dL Normal [facility] Comment on above: Order Comment: Order Date: 02/18/25 Order Info: 0786-1 - CMP Order Info: [id number] - LIPID Order Info: 3 - TSH Order Info: [id number] - IBC Order Info: 2275-08 - JJ Result Comment: Maris onal Cholesterol Education Program (NCEP) guidelines: <40 mg/dL: Low HDL-cholesterol (major risk factor for CHD) >= 60 mg/dL: High HDL-cholesterol (negative risk factor for CHD) HDL-cholesterol is affected by a number of factors, e.g. smoking, exercise, hormones, sex and age. Performed By: #### L 500.4050, L500.4100, L501.9520, L501.9985, L100.0500, L503.6550, L503.6030 #### [facility] [address] [place] [place], [address] Cholesterol in LDL [Mass/Vol] 77 mg/dL Normal [facility] Comment on above: Order Comment: Order Date: 02/18/25 Order Info: 785- - CMP Order Info: - LIPID Order Info: 3 - TSH Order Info: - IBC Order Info: 2275-08 - JJ Result Comment: Bord yontgl=874-574 mg/dL Higher Jjlj=698 mg/dL or greater Friedwald Equation for LDL-C Performed By: #### L 500.4050, L500.4100, L501.9520, L501.9985, L100.0500, L503.6550, L503.6030 #### [facility] [address] [place], [address] Cholesterol in VLDL [Mass/Vol] 31 mg/dL Normal 5-40 [facility] Comment on above: Order Comment: Order Date: 02/18/25 Order Info: 785-05 - CMP Order Info: - LIPID Order Info: [id number] - TSH Order Info: - IBC Order Info: [id number] - JJ Performed By: #### L 500.4050, L500.4100, L501.9520, L501.9985, L100.0500, L503.6550, L503.6030 #### [facility] [address] [place], [address] Triglyceride [Mass/Vol] 157 mg/dL Normal [facility] Comment on above: Order Comment: Order Date: 02/18/25 Order Info: [id number] - CMP Order Info: - LIPID Order Info: [id number] - TSH Order Info: - IBC Order Info: 4 - JJ Result Comment: The drugs N-Acetylcysteine and Metamizole may falsely depress this assay. Normal range: <150 mg/dL Borderline High: 150-199 mg/dL High: 200-499 mg/dL Very High: >500 mg/dL Performed By: #### L 500.4050, L500.4100, L501.9520, L501.9985, L100.0500, L503.6550, L503.6030 #### [facility] [address] [place], [address] Thyroid Stim Hormone (TSH)on 02-18-2025 TSH 1.450 uIU/mL Normal 0.300-4.200 [facility] Comment on above: Order Comment: Order Date: 02/18/25 Order Info: 07 - CMP Order Info: - LIPID Order Info: 3 - TSH Order Info: [id number] - IBC Order Info: [id number] - JJ Performed By: #### L 500.4050, L500.4100, L501.9520, L501.9985, L100.0500, L503.6550, L503.6030 #### [facility] [address] [place], [address] Vitamin D,25 Hydroxyon 02-18 Vitamin D 25-OH 39.1 ng/mL Normal 30-100 [facility] Comment on above: Order Comment: Order Date: 02/18/25 Order Info: [id number] - CMP Order Info: - LIPID Order Info: 3 - TSH Order Info: [id number] - IBC Order Info: 4 - JJ Result Comment: Vidya min D Status Deficiency: <20 ng/mL (50nmol/L) Insufficiency: 20-30 ng/mL (50-75 nmol/L) Sufficiency: 30-100 ng/mL (75-250 nmol/L) Toxicity: >100 ng/mL (>250 nmol/L) Performed By: #### L 506.1001 #### [facility] [address] [place], [address] SCRN MAMM (CAD)W/DIAN BILATo n 03-28-2024 SCRN MAMM (CAD)W/DIAN BILAT [facility] Imaging Services [address] [place] [address] SCRN MAMM (CAD)W/DIAN BILAT MR#: [id number] Acct: [id number] Name: EDWIN DICKERSON Rep #: [id number] : 1945 F 78 From: Biju del toro MD PCP: Dr. Petty Garza MD Status: [facility] Study: SCRN MAMM (CAD)W/DIAN BILAT Date of Exam: 03/10 Exam# [id number] Ordering Dr: Petty Garza MD [id number] MAMMOGRAPHY - BILATERAL SCREENING REASON FOR EXAM: Female, 78 years old. Routine annual screening examination. PERTINENT HISTORY: Sister with breast cancer. TECHNIQUE: Digital bilateral breast dian (3D mammographic acquisition) in the CC and MLO projections. 2-D mediolateral oblique (MLO) and craniocaudad (CC) views of both breasts were obtained. CAD: Full Field Digital Mammography with Computer Added Detection was performed. COMPARISON: Comparison is made with prior study dated March 23, 2023 and March 17, 2022. FINDINGS: Breast Composition: The breasts are almost entirely fatty. There are no dominant masses or suspicious calcifications. Stable bilateral fat containing axillary lymph nodes. No other significant abnormalities are identified. There has been no significant change since the prior study. BI/SCRN MAMM (CAD)W/DIAN BILAT IMPRESSION: Stable bilateral screening mammogram. Yearly follow-up mammogram recommended. (A) ASSESSMENT CATEGORY: BIRADS Category 2: Benign. A letter regarding these results will be sent to the patient by the facility within 30 days. Approximately 10% of breast cancers are not detected by mammography. A normal mammogram should not delay biopsy of a clinically suspicious abnormality. [id number] Electronically Signed: Biju Ovalle MD at 15:45 EST , CC: Dr. Petty Garza MD Cutter Operator Helper: Signed Normal [facility] Absolute lymphocyte countOrd ered By: Mimi Silvestre on 06-30-2023 Lymphocytes Auto (Unsp spec) [#/Vol] 2.87 10*3/uL 0.83-4.51 [facility] Automated lymphocyte count a s percentage of total leukocytesOrdered By: Mimi Silvestre on 06-30-2023 Lymphocytes/100 WBC Auto (Unsp spec) 27.7 % 19-41 [facility] Basophil percentageOrdered B y: Mimi Silvestre on 06-30-2023 Basophils/100 WBC (Bld) 0.5 % 0-1 [facility] Chloride [Moles/Vol] 111 mmol/L 98-107 [facility] Cholesterol [Mass/Vol] 131 mg/dL <200 [facility] Comment on above: <200 mg/dL Desirable 200-240 mg/dL Borderline >240 mg/dL High Risk Eosinophils/100 WBC (Bld) 3.0 % 0-5 [facility] Glucose [Mass/Vol] 106 mg/dL 74-106 [facility] Comment on above: Fasting Glucose resu lt from 100 to 125 mg/dL suggests IMPAIRED HOMEOSTASIS per A.D.A. criteria. Hemoglobin (Bld) [Mass/Vol] 10.4 g/dL 12.0-15.0 [facility] Monocytes/100 WBC (Bld) 8.1 % 0-10 [facility] Neutrophils (Bld) [#/Vol] 6.2 10*3/uL 2.0-7.7 [facility] Neutrophils/100 WBC (Bld) 60.3 % 47-70 [facility] Potassium [Moles/Vol] 3.9 mmol/L 3.5-5.1 [facility] Sodium [Moles/Vol] 139 mmol/L 136-145 [facility] Triglyceride [Mass/Vol] 124 mg/dL <199 [facility] Comment on above: The drugs N-Acetylcy steine and Metamizole may falsely depress this assay.Serum Triglycerides Reference Interval Normal <150 mg/dL Borderline high 150 - 199 mg/dL High 200 - 499 mg/dL Very High > or = 500 mg/dL WBC (Bld) [#/Vol] 10.4 10*3/uL 4.4-11.0 [facility] Determination of erythrocyte mean corpuscular volume (MCV)Ordered By: Mimi Silvestre on 06-30-2023 MCV (RBC) [Entitic vol] 82.2 fL 81-99 [facility] Erythrocyte distribution wid th ratioOrdered By: Mimi Silvestre on 06-30-2023 Erythrocyte distribution width (RBC) [Ratio] 15.3 % 11.6-14.6 [facility] Erythrocyte distribution wid th standard deviationOrdered By: Mimi Silvestre on 06-30-2023 Erythrocyte distribution width (RBC) [Entitic vol] 45.6 fL 35.1-43.9 [facility] Hematocrit Auto (Bld) [Volum e fraction]Ordered By: Mimi Silvestre on 06-30-2023 Hematocrit (Bld) [Volume fraction] 31.4 % 37-47 [facility] Immature granulocytes/100 WB C Auto (Bld)Ordered By: Mimi Silvestre on 06-30-2023 Immature granulocytes/100 WBC (Bld) 0.400 % 0.0-0.9 [facility] Comment on above: IG% - Immature Granu locytes (promyelocytes, myelocytes and metamyelocytes) > 1% indicates that a LEFT SHIFT is Present. Laboratory - Chemistry and C hemistry - challengeOrdered By: Mimi Silvestre on 06-30-2023 Cholesterol in HDL [Mass/Vol] 43 mg/dL >40 [facility] Comment on above: The drugs N-Acetylcy steine and Metamizole may falsely depress this assay. Reference Range HDL <40 mg/dL Low HDL Cholesterol HDL >or= 60 mg/dL High HDL Cholesterol Cholesterol in LDL [Mass/Vol] 63 mg/dL 0-130 [facility] CO2 [Moles/Vol] 24.0 mmol/L 21.0-32.0 [facility] Urea nitrogen/Creatinine [Mass ratio] 19.5 mg/mg 10-20 [facility] - Hematology and Cell countsOrdered By: Mimi Silvestre on 06-30-2023 MCH (RBC) [Entitic mass] 27.2 pg 27.0-32.0 [facility] MCHC (RBC) [Mass/Vol] 33.1 g/dL 32-36 [facility] Nucleated RBC/100 WBC (Bld) [Ratio] 0 % 0-5 [facility] Platelet mean volume (Bld) [Entitic vol] 9.1 fL 6.2-12.0 [facility] Platelets (Bld) [#/Vol] 592 10*3/uL 150-450 [facility] No Panel InformationOrdered By: Mimi Silvestre on 06-30-2023 Estimated Creatinine Clearance Calc 63.03 ml/min [facility] Estimated GFR (MDRD) Amer 102 mL/min >60 [facility] Comment on above: GFR Calc Estimated GFR (MDRD) Non-Af Amer 84 mL/min >60 [facility] Comment on above: Non- GFR Calc VLDL Cholesterol 25 mg/dL 5-40 [facility] RBC Auto (Bld) [#/Vol]Ordere d By: Mimi Silvestre on 06-30-2023 RBC (Bld) [#/Vol] 3.82 10*6/uL 4.2-5.4 [facility] Serum or plasma calcium misha urement (mass/volume)Ordered By: Mimi Silvestre on 06-30-2023 Calcium [Mass/Vol] 9.1 mg/dL 8.5-10.1 [facility] Serum or plasma creatinine m easurement (mass/volume)Ordered By: Mimi Silvestre on 06-30-2023 Creatinine [Mass/Vol] 0.72 mg/dL 0.55-1.02 [facility] Comment on above: The validity of the calculated GFR & GFRAA in patients over 70 years has not been determined. Clinical correlation is essential. Serum or plasma thyroid stim ulating hormone (TSH) measurement (units/volume)Ordered By: Mimi Silvestre on 06-30-2023 TSH Qn 4.99 uIU/mL 0.358-3.74 [facility] Serum or plasma urea nitroge n measurement (mass/volume)Ordered By: Mimi Silvestre on 06-30-2023 Urea nitrogen [Mass/Vol] 14 mg/dL 7-18 [facility] Thin prep Papanicolaou smear with manual screeningOrdered By: Mimi Silvestre on 06-30-2023 Thin prep Papanicolaou smear with manual screening 4 5-15 [facility] Thin prep Papanicolaou smear with manual screeningOrdered By: Jovan Rodriguez on 06-30-2023 Thin prep Papanicolaou smear with manual screening 1.14 ng/dL 0.76-1.46 [facility] Whole blood hemoglobin A1c/t otal hemoglobin ratio (mass fraction)Ordered By: Jovan Rodriguez on 06-30-2023 HbA1c (Bld) [Mass fraction] 6.1 % 3.8-5.6 [facility] Comment on above: Normal < 5.7 % Predi abetic 5.7 - 6.4 % Diabetic >or= 6.5 % Please note range changes. Absolute lymphocyte countOrd ered By: Lazarus Flores on 06-29-2023 Lymphocytes Auto (Unsp spec) [#/Vol] 2.94 10*3/uL 0.83-4.51 [facility] Activated partial thrombopla stin time (aPTT) in platelet poor plasma by coagulation aOrdered By: Lazarus Flores on 06-29-2023 aPTT Coag (PPP) [Time] 27.5 s 24.1-36.2 [facility] Automated lymphocyte count a s percentage of total leukocytesOrdered By: Lazarus Flores on 06-29-2023 Lymphocytes/100 WBC Auto (Unsp spec) 21.4 % 19-41 [facility] Basophil percentageOrdered B y: Lazarus Flores on 06-29-2023 Basophils/100 WBC (Bld) 0.4 % 0-1 [facility] Chloride [Moles/Vol] 109 mmol/L 98-107 [facility] Eosinophils/100 WBC (Bld) 1.7 % 0-5 [facility] Glucose [Mass/Vol] 123 mg/dL 74-106 [facility] Comment on above: Fasting Glucose resu lt from 100 to 125 mg/dL suggests IMPAIRED HOMEOSTASIS per A.D.A. criteria. Hemoglobin (Bld) [Mass/Vol] 11.4 g/dL 12.0-15.0 [facility] Monocytes/100 WBC (Bld) 7.3 % 0-10 [facility] Neutrophils (Bld) [#/Vol] 9.5 10*3/uL 2.0-7.7 [facility] Neutrophils/100 WBC (Bld) 68.8 % 47-70 [facility] Potassium [Moles/Vol] 4.0 mmol/L 3.5-5.1 [facility] Sodium [Moles/Vol] 138 mmol/L 136-145 [facility] WBC (Bld) [#/Vol] 13.8 10*3/uL 4.4-11.0 [facility] Determination of erythrocyte mean corpuscular volume (MCV)Ordered By: Lazarus Flores on 06-29-2023 MCV (RBC) [Entitic vol] 81.5 fL 81-99 [facility] Erythrocyte distribution wid th ratioOrdered By: Lazarus Flores on 06-29-2023 Erythrocyte distribution width (RBC) [Ratio] 14.9 % 11.6-14.6 [facility] Erythrocyte distribution wid th standard deviationOrdered By: Lazarus Flores on 06-29-2023 Erythrocyte distribution width (RBC) [Entitic vol] 44.7 fL 35.1-43.9 [facility] Hematocrit Auto (Bld) [Volum e fraction]Ordered By: Lazarus Flores on 06-29-2023 Hematocrit (Bld) [Volume fraction] 35.6 % 37-47 [facility] Immature granulocytes/100 WB C Auto (Bld)Ordered By: Lazarus Flores on 06-29-2023 Immature granulocytes/100 WBC (Bld) 0.400 % 0.0-0.9 [facility] Comment on above: IG% - Immature Granu locytes (promyelocytes, myelocytes and metamyelocytes) > 1% indicates that a LEFT SHIFT is Present. Laboratory - Chemistry and C hemistry - challengeOrdered By: Lazarus Flores on 06-29-2023 CO2 [Moles/Vol] 21.0 mmol/L 21.0-32.0 [facility] Urea nitrogen/Creatinine [Mass ratio] 18.6 mg/mg 10-20 [facility] - CoagulationOrde red By: Lazarus Flores on 06-29-2023 INR Coag (Bld) [Relative time] 1.0 {INR} [facility] PT Coag (PPP) [Time] 13.0 s 11.7-14.9 [facility] - Hematology and Cell countsOrdered By: Lazarus Flores on 06-29-2023 MCH (RBC) [Entitic mass] 26.1 pg 27.0-32.0 [facility] MCHC (RBC) [Mass/Vol] 32.0 g/dL 32-36 [facility] Nucleated RBC/100 WBC (Bld) [Ratio] 0 % 0-5 [facility] Platelet mean volume (Bld) [Entitic vol] 9.5 fL 6.2-12.0 [facility] Platelets (Bld) [#/Vol] 712 10*3/uL 150-450 [facility] No Panel InformationOrdered By: Lazarus Flores on 06-29-2023 Estimated Creatinine Clearance Calc 48.17 ml/min [facility] Estimated GFR (MDRD) Amer 68 mL/min >60 [facility] Comment on above: GFR Calc Estimated GFR (MDRD) Non-Af Amer 56 mL/min >60 [facility] Comment on above: Non- GFR Calc Troponin I High Sensitivity 8 pg/mL 3.0-54.0 [facility] Comment on above: Please Note: New Alyssa t Units and Gender Specific Reference Ranges. For more information see Policy Stat Procedure [place] High Sensitivity Troponin (TNIH) and attachments. RBC Auto (Bld) [#/Vol]Ordere d By: Lazarus Flores on 06-29-2023 RBC (Bld) [#/Vol] 4.37 10*6/uL 4.2-5.4 [facility] Serum or plasma calcium misha urement (mass/volume)Ordered By: Lazarus Flores on 06-29-2023 Calcium [Mass/Vol] 9.2 mg/dL 8.5-10.1 [facility] Serum or plasma creatinine m easurement (mass/volume)Ordered By: Lazarus Flores on 06-29-2023 Creatinine [Mass/Vol] 1.02 mg/dL 0.55-1.02 [facility] Comment on above: The validity of the calculated GFR & GFRAA in patients over 70 years has not been determined. Clinical correlation is essential. Serum or plasma urea nitroge n measurement (mass/volume)Ordered By: Lazarus Flores on 06-29-2023 Urea nitrogen [Mass/Vol] 19 mg/dL 7-18 [facility] Thin prep Papanicolaou smear with manual screeningOrdered By: Lazarus Flores on 06-29-2023 Thin prep Papanicolaou smear with manual screening 8 5-15 [facility] Absolute lymphocyte countOrd ered By: Jennifer Brown on 06-24-2023 Lymphocytes Auto (Unsp spec) [#/Vol] 1.15 10*3/uL 0.83-4.51 [facility] Automated lymphocyte count a s percentage of total leukocytesOrdered By: Jennifer Brown on 06-24-2023 Lymphocytes/100 WBC Auto (Unsp spec) 8.7 % 19-41 [facility] Basophil percentageOrdered B y: Jennifer Brown on 06-24-2023 Basophil percentage 0 SEEN /hpf 0-5 [facility] Basophils/100 WBC (Bld) 0.5 % 0-1 [facility] Bilirubin [Mass/Vol] 0.90 mg/dL 0.20-1.00 [facility] Comment on above: For patients on eltr ombopag therapy, use of Dimension [place] TBIL is not recommended. Chloride [Moles/Vol] 107 mmol/L 98-107 [facility] Eosinophils/100 WBC (Bld) 0.3 % 0-5 [facility] Glucose [Mass/Vol] 122 mg/dL 74-106 [facility] Comment on above: Fasting Glucose resu lt from 100 to 125 mg/dL suggests IMPAIRED HOMEOSTASIS per A.D.A. criteria. Hemoglobin (Bld) [Mass/Vol] 11.0 g/dL 12.0-15.0 [facility] Monocytes/100 WBC (Bld) 7.8 % 0-10 [facility] Neutrophils (Bld) [#/Vol] 10.8 10*3/uL 2.0-7.7 [facility] Neutrophils/100 WBC (Bld) 81.9 % 47-70 [facility] Potassium [Moles/Vol] 3.9 mmol/L 3.5-5.1 [facility] Protein [Mass/Vol] 7.5 g/dL 6.4-8.2 [facility] Sodium [Moles/Vol] 138 mmol/L 136-145 [facility] WBC (Bld) [#/Vol] 13.2 10*3/uL 4.4-11.0 [facility] Bilirubin Test strip Ql (U)O rdered By: Jennifer Bronw on 06-24-2023 Bilirubin Ql (U) Negative Negative [facility] Determination of erythrocyte mean corpuscular volume (MCV)Ordered By: Jennifer Brown on 06-24-2023 MCV (RBC) [Entitic vol] 81.3 fL 81-99 [facility] Erythrocyte distribution wid th ratioOrdered By: Jennifer Brown on 06-24-2023 Erythrocyte distribution width (RBC) [Ratio] 14.7 % 11.6-14.6 [facility] Erythrocyte distribution wid th standard deviationOrdered By: Jennifer Brown on 06-24-2023 Erythrocyte distribution width (RBC) [Entitic vol] 43.7 fL 35.1-43.9 [facility] Hematocrit Auto (Bld) [Volum e fraction]Ordered By: Jennifer Brown on 06-24-2023 Hematocrit (Bld) [Volume fraction] 34.3 % 37-47 [facility] Immature granulocytes/100 WB C Auto (Bld)Ordered By: Jennifer Brown on 06-24-2023 Immature granulocytes/100 WBC (Bld) 0.800 % 0.0-0.9 [facility] Comment on above: IG% - Immature Granu locytes (promyelocytes, myelocytes and metamyelocytes) > 1% indicates that a LEFT SHIFT is Present. Ketones Test strip Ql (U)Ord ered By: Jennifer Brown on 06-24-2023 Ketones Ql (U) Negative Negative [facility] - Chemistry and C hemistry - challengeOrdered By: Jennifer Brown on 06-24-2023 Albumin/Globulin [Mass ratio] 0.5 {ratio} 0.9-2.4 [facility] ALP [Catalytic activity/Vol] 247 U/L 45-117 [facility] ALT [Catalytic activity/Vol] 38 U/L 13-56 [facility] CO2 [Moles/Vol] 23.0 mmol/L 21.0-32.0 [facility] Globulin (S) [Mass/Vol] 4.9 g/dL 2.2-4.2 [facility] Urea nitrogen/Creatinine [Mass ratio] 18.9 mg/mg 10-20 [facility] - Hematology and Cell countsOrdered By: Jennifer Brown on 06-24-2023 MCH (RBC) [Entitic mass] 26.1 pg 27.0-32.0 [facility] MCHC (RBC) [Mass/Vol] 32.1 g/dL 32-36 [facility] Nucleated RBC/100 WBC (Bld) [Ratio] 0 % 0-5 [facility] Platelet mean volume (Bld) [Entitic vol] 9.4 fL 6.2-12.0 [facility] Platelets (Bld) [#/Vol] 556 10*3/uL 150-450 [facility] Mucus LM Ql (Urine sed)Order ed By: Jennifer Brown on 06-24-2023 Mucus Ql (Urine sed) 0 SEEN /hpf [facility] Nitrite Test strip Ql (U)Ord ered By: Jennifer Brown on 06-24-2023 Nitrite Ql (U) Negative Negative [facility] No Panel InformationOrdered By: Jennifer Brown on 06-24-2023 Urine RBC 0-5 SEEN /hpf 0-5 [facility] Estimated Creatinine Clearance Calc 62.90 ml/min [facility] Estimated GFR (MDRD) Amer 98 mL/min >60 [facility] Comment on above: GFR Calc Estimated GFR (MDRD) Non-Af Amer 81 mL/min >60 [facility] Comment on above: Non- GFR Calc Protein Test strip Ql (U)Ord ered By: Jennifer Brown on 06-24-2023 Protein Ql (U) Negative Negative [facility] RBC Auto (Bld) [#/Vol]Ordere d By: Jennifer Brown on 06-24-2023 RBC (Bld) [#/Vol] 4.22 10*6/uL 4.2-5.4 [facility] Serum or plasma calcium misha urement (mass/volume)Ordered By: Jennifer Brown on 06-24-2023 Calcium [Mass/Vol] 9.0 mg/dL 8.5-10.1 [facility] Serum or plasma creatinine m easurement (mass/volume)Ordered By: Jennifer Brown on 06-24-2023 Creatinine [Mass/Vol] 0.74 mg/dL 0.55-1.02 [facility] Comment on above: The validity of the calculated GFR & GFRAA in patients over 70 years has not been determined. Clinical correlation is essential. Serum or plasma urea nitroge n measurement (mass/volume)Ordered By: Jennifer Brown on 06-24-2023 Urea nitrogen [Mass/Vol] 14 mg/dL 7-18 [facility] Squamous epithelial cells de tection in urine sediment by light microscopyOrdered By: Jennifer Brown on 06-24-2023 Epithelial cells.squamous LM Ql (Urine sed) 0-5 SEEN /hpf 5-10 [facility] Thin prep Papanicolaou smear with manual screeningOrdered By: Jennifer Brown on 06-24-2023 Thin prep Papanicolaou smear with manual screening 2.6 g/dL 3.2-5.0 [facility] Thin prep Papanicolaou smear with manual screening 44 U/L 15-37 [facility] Thin prep Papanicolaou smear with manual screening 8 5-15 [facility] Urine blood detectionOrdered By: Jennifer Brown on 06-24-2023 RBC Ql (U) Negative Negative [facility] Urine clarityOrdered By: Symone Brown on 06-24-2023 Clarity (U) Sl. Cloudy Clear [facility] Urine color determinationOrd ered By: Jennifer Brown on 06-24-2023 Color (U) Yellow Yellow [facility] Urine glucose detectionOrder ed By: Jennifer Brown on 06-24-2023 Glucose Ql (U) Normal mg/dl Normal [facility] Urine leukocyte esterase det ection by dipstickOrdered By: Jennifer Brown on 06-24-2023 Leukocyte esterase Test strip Ql (U) Negative Negative [facility] Urine pHOrdered By: Jennifer parra on 06-24-2023 pH (U) 7.0 [pH] 5.0 - 8.0 [facility] Urine sediment bacteria coun t by microscopy (number/high power field)Ordered By: Jennifer Brown on 06-24-2023 Bacteria LM.HPF (Urine sed) [#/Area] 0 /[HPF] None Seen [facility] Urine specific gravity measu rementOrdered By: Jennifer Brown on 06-24-2023 Specific gravity (U) [Rel density] 1.005 1.002-1.030 [facility] Urine urobilinogen measureme ntOrdered By: Jennifer Brown on 06-24-2023 Urobilinogen Ql (U) Normal mg/dl Normal [facility] Absolute lymphocyte countOrd ered By: Lázaro Solitario on 05-19-2023 Lymphocytes Auto (Unsp spec) [#/Vol] 2.03 10*3/uL 0.83-4.51 [facility] Basophil percentageOrdered B y: Lázaro Solitario on 05-19-2023 Basophils/100 WBC (Bld) 0.9 % 0-1 [facility] Chloride [Moles/Vol] 110 mmol/L 98-107 [facility] Eosinophils/100 WBC (Bld) 2.9 % 0-5 [facility] Glucose [Mass/Vol] 92 mg/dL 74-106 [facility] Neutrophils (Bld) [#/Vol] 4.8 10*3/uL 2.0-7.7 [facility] Neutrophils/100 WBC (Bld) 60.0 % 47-70 [facility] Potassium [Moles/Vol] 4.2 mmol/L 3.5-5.1 [facility] Sodium [Moles/Vol] 141 mmol/L 136-145 [facility] WBC (Bld) [#/Vol] 8.0 10*3/uL 4.4-11.0 [facility] Blood erythrocytes count (nu mber/volume)Ordered By: Lázaro Solitario on 05-19-2023 RBC (Bld) [#/Vol] 4.59 10*6/uL 4.2-5.4 [facility] Blood hemoglobin measurement (mass/volume)Ordered By: Lázaro Solitario on 05-19-2023 Hemoglobin (Bld) [Mass/Vol] 12.1 g/dL 12.0-15.0 [facility] Blood lymphocytes/100 leukoc ytesOrdered By: Lázaro Solitario on 05-19-2023 Lymphocytes/100 WBC (Bld) 25.3 % 19-41 [facility] Blood monocytes/100 leukocyt esOrdered By: Lázaro Solitario on 05-19-2023 Monocytes/100 WBC (Bld) 10.5 % 0-10 [facility] Blood platelet mean volumeOr dered By: Lázaro Solitario on 05-19-2023 Platelet mean volume (Bld) [Entitic vol] 10.5 fL 6.2-12.0 [facility] Determination of erythrocyte mean corpuscular volume (MCV)Ordered By: Lázaro Solitario on 05-19-2023 MCV (RBC) [Entitic vol] 84.3 fL 81-99 [facility] Hematocrit Auto (Bld) [Volum e fraction]Ordered By: Lázaro Solitario on 05-19-2023 Hematocrit (Bld) [Volume fraction] 38.7 % 37-47 [facility] - Chemistry and C hemistry - challengeOrdered By: Lázaro Solitario on 05-19-2023 CO2 [Moles/Vol] 26.0 mmol/L 21.0-32.0 [facility] Urea nitrogen/Creatinine [Mass ratio] 16.4 mg/mg 10-20 [facility] - Hematology and Cell countsOrdered By: Lázaro Solitario on 05-19-2023 Erythrocyte distribution width (RBC) [Entitic vol] 46.5 fL 35.1-43.9 [facility] Erythrocyte distribution width (RBC) [Ratio] 15.3 % 11.6-14.6 [facility] Immature granulocytes/100 WBC (Bld) 0.400 % 0.0-0.9 [facility] Comment on above: IG% - Immature Granu locytes (promyelocytes, myelocytes and metamyelocytes) > 1% indicates that a LEFT SHIFT is Present. MCH (RBC) [Entitic mass] 26.4 pg 27.0-32.0 [facility] Nucleated RBC/100 WBC (Bld) [Ratio] 0 % 0-5 [facility] [Mass/Vol]Or dered By: Lázaro Solitario on 05-19-2023 MCHC (RBC) [Mass/Vol] 31.3 g/dL 32-36 [facility] No Panel InformationOrdered By: Lázaro Solitario on 05-19-2023 Estimated GFR (MDRD) Amer 83 mL/min >60 [facility] Comment on above: GFR Calc Estimated GFR (MDRD) Non-Af Amer 69 mL/min >60 [facility] Comment on above: Non- GFR Calc Platelets bldOrdered By: Uriel Solitario on 05-19-2023 Platelets (Bld) [#/Vol] 394 10*3/uL 150-450 [facility] Serum or plasma albumin misha urement (mass/volume)Ordered By: Lázaro Solitario on 05-19-2023 Albumin [Mass/Vol] 3.2 g/dL 3.2-5.0 [facility] Serum or plasma calcium misha urement (mass/volume)Ordered By: Lázaro Solitario on 05-19-2023 Calcium [Mass/Vol] 9.2 mg/dL 8.5-10.1 [facility] Serum or plasma creatinine m easurement (mass/volume)Ordered By: Lázaro Solitario on 05-19-2023 Creatinine [Mass/Vol] 0.86 mg/dL 0.55-1.02 [facility] Comment on above: The validity of the calculated GFR & GFRAA in patients over 70 years has not been determined. Clinical correlation is essential. Serum or plasma urea nitroge n measurement (mass/volume)Ordered By: Lázaro Solitario on 05-19-2023 Urea nitrogen [Mass/Vol] 14 mg/dL 7-18 [facility] Thin prep Papanicolaou smear with manual screeningOrdered By: Lázaro Solitario on 05-19-2023 Thin prep Papanicolaou smear with manual screening 5 5-15 [facility] Basophil percentageOrdered B y: Petty Garza on 02-14-2023 Cholesterol [Mass/Vol] 198 mg/dL <200 [facility] Comment on above: <200 mg/dL Desirable 200-240 mg/dL Borderline >240 mg/dL High Risk Triglyceride [Mass/Vol] 130 mg/dL <199 [facility] Comment on above: The drugs N-Acetylcy steine and Metamizole may falsely depress this assay.Serum Triglycerides Reference Interval Normal <150 mg/dL Borderline high 150 - 199 mg/dL High 200 - 499 mg/dL Very High > or = 500 mg/dL Laboratory - Chemistry and C hemistry - challengeOrdered By: Petty Garza on 02-14-2023 ALT [Catalytic activity/Vol] 16 U/L 13-56 [facility] T4 [Mass/Vol] 10.6 ug/dL 4.8-13.9 [facility] No Panel InformationOrdered By: Petty Garza on 02-14-2023 Thyroid Stimulating Hormone (TSH) 2.29 uIU/mL 0.358-3.74 [facility] Vitamin D 25-Hydroxy 16.4 ng/mL [facility] Comment on above: Vitamin D 25(OH) Sta tus Range Deficiency <20 ng/mL (50nmol/L) Insufficiency 20 - 30 ng/mL (50 - 75 nmol/L) Sufficiency 30 - 100 ng/mL (75 - 250 nmol/L) Toxicity >100 ng/mL (>250 nmol/L) Serum or plasma cholesterol in HDL measurement (mass/volume)Ordered By: Petty Garza on 02-14-2023 Cholesterol in HDL [Mass/Vol] 65 mg/dL >40 [facility] Comment on above: The drugs N-Acetylcy steine and Metamizole may falsely depress this assay. Reference Range HDL <40 mg/dL Low HDL Cholesterol HDL >or= 60 mg/dL High HDL Cholesterol Serum or plasma cholesterol in VLDL measurement (mass/volume)Ordered By: Petty Garza on 02-14-2023 Cholesterol in VLDL [Mass/Vol] 26 mg/dL 5-40 [facility] Serum or plasma low density lipoprotein (LDL) cholesterol measurement (mass/volume)Ordered By: Petty Garza on 02-14-2023 Cholesterol in LDL [Mass/Vol] 107 mg/dL 0-130 [facility] Thin prep Papanicolaou smear with manual screeningOrdered By: Petty Garza on 02-14-2023 Thin prep Papanicolaou smear with manual screening 10 U/L 15-37 [facility] Basophil percentageon 2021 Cholesterol [Mass/Vol] 185 mg/dL <200 [facility] Work Phone: Comment on above: <200 mg/dL Desirable 200-240 mg/dL Borderline >240 mg/dL High Risk Triglyceride [Mass/Vol] 158 mg/dL <199 [facility] Work Phone: Comment on above: The drugs N-Acetylcy steine and Metamizole may falsely depress this assay.Serum Triglycerides Reference Interval Normal <150 mg/dL Borderline high 150 - 199 mg/dL High 200 - 499 mg/dL Very High > or = 500 mg/dL Laboratory - Chemistry and C hemistry - challengeon 02-10-2022 ALT [Catalytic activity/Vol] 16 U/L 13-56 [facility] Work Phone: T4 [Mass/Vol] 10.2 ug/dL 4.8-13.9 [facility] Work Phone: No Panel Informationon 02-10 Thyroid Stimulating Hormone (TSH) 1.97 uIU/mL 0.358-3.74 [facility] Work Phone: Serum or plasma cholesterol in HDL measurement (mass/volume)on 02-10-2022 Cholesterol in HDL [Mass/Vol] 62 mg/dL >40 [facility] Work Phone: Comment on above: The drugs N-Acetylcy steine and Metamizole may falsely depress this assay. Reference Range HDL <40 mg/dL Low HDL Cholesterol HDL >or= 60 mg/dL High HDL Cholesterol Serum or plasma cholesterol in VLDL measurement (mass/volume)on 02-10-2022 Cholesterol in VLDL [Mass/Vol] 32 mg/dL 5-40 [facility] Work Phone: Serum or plasma low density lipoprotein (LDL) cholesterol measurement (mass/volume)on 02-10-2022 Cholesterol in LDL [Mass/Vol] 91 mg/dL 0-130 [facility] Work Phone: Thin prep Papanicolaou smear with manual screeningon 02-10-2022 Thin prep Papanicolaou smear with manual screening 18 U/L 15-37 [facility] Work Phone: Vital Signs Date Time Vital Sign Value Performing Clinician Gloria dillard 06-30-2023 15:03-0500 Body temperature 97 [degF] Dr. Petty Garza Work Phone: [facility] 06-30-2023 15:03-0500 Diastolic blood pressure 67 mm[Hg] Dr. Petty Garza Work Phone: [facility] 06-30-2023 15:03-0500 Heart rate 92 /min Dr. Petty Garza Work Phone: [facility] 06-30-2023 15:03-0500 Respiratory rate 12 /min Dr. Petty Garza Work Phone: [facility] 06-30-2023 15:03-0500 SaO2% (BldA) [Mass fraction] 96 % Dr. Petty Garza Work Phone: [facility] 06-30-2023 15:03-0500 Systolic blood pressure 117 mm[Hg] Dr. Petty Garza Work Phone: [facility] 06-30-2023 02:17-0500 Body mass index (BMI) [Ratio] 26.6 kg/m2 Dr. Petty Garza Work Phone: [facility] 06-29-2023 20:10-0500 Body temperature 98 [degF] Dr. Petty Garza Work Phone: [facility] 06-29-2023 20:10-0500 Diastolic blood pressure 80 mm[Hg] Dr. Petty Garza Work Phone: [facility] 06-29-2023 20:10-0500 Heart rate 75 /min Dr. Petty Garza Work Phone: [facility] 06-29-2023 20:10-0500 Respiratory rate 16 /min Dr. Petty Garza Work Phone: [facility] 06-29-2023 20:10-0500 SaO2% (BldA) [Mass fraction] 99 % Dr. Petty Garza Work Phone: [facility] 06-29-2023 20:10-0500 Systolic blood pressure 142 mm[Hg] Dr. Petty Garza Work Phone: [facility] 06-29-2023 20:08-0500 Body height 170.[address] Petty Garza Work Phone: [facility] 06-29-2023 20:08-0500 Body weight 77.[address] Petty Garza Work Phone: [phone] [place] [address] 06-29-2023 16:41-0500 Body height [address] Petty Garza Work Phone: [phone] [place] [address] 06-29-2023 16:41-0500 Body mass index (BMI) [Ratio] 26.4 kg/m2 Dr. Petty Garza Work Phone: [facility] 06-29-2023 16:41-0500 Body weight 76.[address] Petty Garza Work Phone: [facility] 06-24-2023 15:43-0500 Body temperature 98 [degF] Dr. Petty Garza Work Phone: [facility] 06-24-2023 15:43-0500 Diastolic blood pressure 74 mm[Hg] Dr. Petty Garza Work Phone: [facility] 06-24-2023 15:43-0500 Heart rate 87 /min Dr. Petty Garza Work Phone: [facility] 06-24-2023 15:43-0500 Respiratory rate 14 /min Dr. Petty Garza Work Phone: [facility] 06-24-2023 15:43-0500 SaO2% (BldA) [Mass fraction] 99 % Dr. Petty Garza Work Phone: [facility] 06-24-2023 15:43-0500 Systolic blood pressure 145 mm[Hg] Dr. Petty Garza Work Phone: [facility] 06-24-2023 09:27-0500 Body mass index (BMI) [Ratio] 27.7 kg/m2 Dr. Petty Garza Work Phone: [facility] 06-24-2023 09:27-0500 Body weight 80.[address] Petty Garza Work Phone: [facility] 06-24-2023 08:52-0500 Body height [address] Petty Garza Work Phone: [facility] Encounters Encounter Date Encounter Type Care Provider Facility Start: 04-08-2025 ambulatory [facility] Facility:[facility] Start: 02-18-2025 End: 02-18-20[facility] Start: 03-28-2024 End: 03-28-2024 ambulatory Petty Garza Facility:[facility] Start: 06-30-2023 Non-patient / Non-visit Dr. Didier Garza Work Phone: [facility] Start: 06-29-2023 End: 06-30-2023 Evaluation and management of inpatient Dr. Petty Garza Work Phone: [facility] Work Phone: Start: 06-29-2023 End: 06-30-[address] Petty Garza Work Phone: [facility] Work Phone: Start: 06-24-2023 End: 06-24-2023 Emergency department patient visit Dr. Petty Garza Work Phone: [facility]-Emergency Department Work Phone: Start: 05-19-2023 End: 05-19-2023 Non-patient / Non-visit Dr. Petty Garza Work Phone: [facility] Work Phone: Start: 05-19-2023 End: 05-19-[address] Petty Garza Work Phone: [facility] Work Phone: Start: 05-19-2023 End: 05-19-[address] Petty Garza Work Phone: [facility]-Cat Scan, [facility] Work Phone: Start: 03-23-2023 End: 03-23-2023 ambulatory [facility] Work Phone: Start: 03-23-2023 End: 03-23-2023 Patient encounter procedure [facility]Outpatient [facility] Work Phone: Start: 02-14-2023 End: 02-14-2023 ambulatory [facility] Work Phone: Start: 02-14-2023 End: 02-14-2023 Patient encounter procedure [facility] Work Phone: Start: 02-10-2022 End: 02-10-2022 ambulatory [facility] Work Phone: Start: 02-10-2022 End: 02-10-2022 Patient encounter procedure [facility] Start: 10-27-2021 End: 10-27-2021 Patient encounter procedure [facility] Date Procedure Procedure Detail Performing Clinician Start: 06-30-2023 MRI of brain without contrast Dr. Petty Garza Work Phone: Start: 06-29-2023 Plain chest X-ray Dr. Jessica Garza Work Phone: Start: 06-29-2023 CT angiography of he ad and neck Dr. Petty Garza Work Phone: Start: 06-29-2023 CT of head without contrast Dr. Petty Garza Work Phone: Start: 06-24-2023 US scan of gallbladder Dr. Petty Garza Work Phone: Start: 06-24-2023 Computed tomography of abdomen and pelvis with intravenous contrast Dr. Petty Garza Work Phone: Start: 05-19-2023 MRI of lower extremity Dr. Petty Garza Work Phone: Start: 03-23-2023 Screening mammography Start: 10-27-2021 Radiologic examinati on of knee Plan of Treatment Date Care Activity Detail Author Start: 06-30-2023 Patient discharge [facility] Start: 06-29-2023 Following clinical pathway protocol [facility] Start: 06-29-2023 Assessment of risk of venous thromboembolism [facility] Start: 06-29-2023 Cardiac monitoring [facility] Start: 06-29-2023 Catheterization of vein [facility] Start: 06-29-2023 Continuous pulse oximetry [facility] Start: 06-29-2023 Elevation of head of bed [facility] Start: 06-29-2023 Exercises [facility] Start: 06-29-2023 Implementation of planned interventions [facility] Start: 06-29-2023 Insertion of catheter into peripheral vein [facility] Start: 06-29-2023 Notification of physician [facility] Start: 06-29-2023 Oxygen therapy [facility] Start: 06-29-2023 Providing care according to standard [facility] Start: 06-29-2023 Provision of activity privileges [facility] Start: 06-29-2023 Referral to occupational therapist [facility] Start: 06-29-2023 Referral to service [facility] Start: 06-29-2023 Speech therapy assessment [facility] Start: 06-29-2023 Telemedicine consultation with patient [facility] Start: 06-29-2023 Tobacco use cessation education [facility] Start: 06-29-2023 [facility] Start: 06-29-2023 Vital signs measurements [facility] Start: 06-29-2023 MRI of brain without contrast Brain without Contrast [facility] Start: 06-29-2023 Verification routine [facility] Start: 06-29-2023 Admission procedure [facility] Start: 06-29-2023 Hospital admission, emergency, from emergency room, medical nature [facility] Start: 06-29-2023 Oxygen therapy [facility] Start: 06-29-2023 [facility] Start: 06-24-2023 [facility] Cardiac event recording [facility] Patient Education ED Constipation (Adult) [facility] Work Phone: Patient referral [facility] Work Phone: Payers Date Payer Category Payer Self-pay [id number] 2024 Medicare [id number] 2015 Medicare [id number] Unknown [id number] Unknown [id number] Unknown [id number] Social History Date Type Detail Facility Start: 11-08-2020 End: 06-30-2023 Tobacco smoking status NHIS Unknown if ever smoked [facility] Start: 1945 Sex Assigned At Female [facility] Start: 06-30-2023 Non-smoker [facility] Functional Status Date Assessment Result Facility 06-30-2023 Functional status Ambulates;Bathroom Priv ilege [facility] Work Phone: Mental Status Date Assessment Result Facility 06-30-2023 Cognitive function Voice/Name [facility] Work Phone: 06-29-2023 Cognitive function Voice/Name [facility] Work Phone: Discharge summary 06-30-2023 Note Date & Type Note Facility 06-30-2023 Discharge summary Note Date/Time June 30, 2023 12:36pm [facility] Medical Records Department [address] [place] [address] Instructions for Home/Discharge Instructions 06/30/23 1203 MR#: [id number] Acct: [id number] Name: EDWIN DICKERSON Rep #:[id number] : 1945 78 From: Jovan Mercedes PCP: Dr. Petty Garza MD Status:ADM MELISSA Discharge Instructions Diet Discharge Diet: No restrictions Activity Discharge Activity: Return to Normal Activity Weight Bearing Status: Weight bearing as tolerated Dressing / Incision Call your doctor if you observe: Fever of 101 or Higher, Coldness, Increased Pain, Numbness or Tingling, Change in Color, Inability to urinate, Inability to have a bowel movement, Using more than 1 pad per hour, Shortness of breath, Dizziness, Fainting spells, Swelling in the ankles, Chest pain, Prolonged hiccupping, Increased palpitations (irregular heartbeat) and Calf discomfort Follow Up Care When: IN 2 WEEKS Test Results: Test results from this visit will be discussed in further detail at your follow-up appointment, if applicable. Discharge Plan Admission Admit Date/Time: 06/29/23 17:47 Attending Provider: Jovan Rodriguez Primary Care Provider: Petty Garza Consulting Providers: Sebastien Rosenthal; Sandy Bahena; Marci Taylor; Yu Moyer; Ca Low; Derian Cardona; Suzy Tobar; Paul Jackson; Karlos Almazan; Amy Garrido; Armin Moeller; Bela Covarrubias; Kiley Ratliff; Leisa Boland; Andrew Mcwilliams; Blanka Cooper; Alexis Linton; Aspen Floyd; Haroldo Bsuch;Mimi Silvestre Discharge Orders/Prescriptions Prescriptions: New atorvastatin 40 mg Tablet 40 mg PO QHS 30 Days Qty: 30 3RF levothyroxine 75 mcg tablet 75 mcg PO DAILY Qty: 30 3RF Rx Instructions: 1 hour before breakfast. Continued latanoprost 0.005 % drops 1 drp ophthalmic (eye) DAILY clobetasol 0.05 % ointment 1 applic topical .COMPLEX Qty: 15 3RF Rx Instructions: 1 applic topically rub in small amount daily X 2 weeks then prn; sumatriptan succinate 50 MG tablet 50 mg PO PRN PRN (Reason: Headache) famotidine 20 mg tablet 20 mg PO DAILY dicyclomine 10 mg capsule 10 mg PO TID PRN (Reason: abdominal pain) Qty: 20 0RF acetaminophen 500 mg capsule 1,000 mg PO BID PRN (Reason: pain) aspirin 81 mg tablet,delayed release (DR/EC) 81 mg PO BID lactulose [Constulose] 10 gram/15 mL solution Changed meloxicam 7.5 mg tablet 7.5 mg PO BID PRN (Reason: arthritis pain) Qty: 3 0RF Discontinued simvastatin 10 MG tablet 10 mg PO DAILY levothyroxine 50 MCG tablet 50 mcg PO DAILY Referrals / Follow Up: Petty Garza MD [Primary Care Provider] - Within 2 Weeks Freddie Arreola MD [Non-Staff -Ordering Privileges] - Within 1 Month (For TIA) Disposition Disposition (needs filled in before D/C Order can be placed): Home, Self Care 06/30/23 1253<Electronically signed by Jovan Rodriguez MD>Jovan Rodriguez MD CC: Yu Moyer; Bela Covarrubias; Andrew Hernandez; Ca oLw MD; Marci Taylor MD; Sebastien Rosenthal MD; Dr. Sandy Bahena MD; Dr. Petty Garza MD; Dr. Derian Cardona MD; Dr. Suzy Tobar MD; Dr. Karlos Almazan MD; Dr. Paul Jackson MD;Dr. Armin Moeller DO; Dr. Leisa Boland MD; Dr. Kiley Ratliff MD; Dr.Paige Konrad MD; Dr. Blanka Cooper MD; Dr. Alexis Linton MD; Dr. Aspen Floyd MD; Amy Garrido DO; Haroldo Busch MD ~ Signed ADDENDUM by Dr. Jovan Rodriguez MD on 06/30/23 at 1334 Atorvastatin dose decreased to 20 mg daily as patient LDL is normal 63 HDL 43. Patient on simvastatin 10 mg at home, changed to atorvastatin 20 mg daily she is above75 years of age. 06/30/23 1334<Electronically signed by Jovan Rodriguez MD>Jovan Rodriguez MD cc: Yu Moyer; Bela Covarrubias; Andrew Hernandez; Ca Low MD; Marci Taylor MD; Sebastien Rosenthal MD; Dr. Sandy Bahena MD; Dr. Petty Garza MD; Dr. Derian Cardona MD; Dr. Suzy Tobar MD; Dr. Karlos Almazan MD; Dr. Paul Jackson MD;Dr. Armin Moeller DO; Dr. Leisa Boland MD; Dr. Kiley Ratliff MD; Dr.Paige Konrad MD; Dr. Blanka Cooper MD; Dr. Alexis Linton MD; Dr. Aspen Floyd MD; Amy Garrido DO; Haroldo Busch MD ~* Signed [facility] Work Phone: History and physical note 06-29-2023 Note Date & Type Note Facility 06-29-2023 History and physical note Note Date/Time June 29, 2023 5:51pm [facility] Medical Records Department [address] [place] [address] H&P Exam - Hospitalist 06/29/23 1747 MR#: [id number] Acct: [id number] Name: EDWIN DICKERSON Rep #:[id number] : 1945 78 From: Mimi Silvestre MD PCP: Dr. Petty Garza MD Status:ADM MELISSA Location: [place] [address] HPI - General General Date of Admission: 06/29/23 Date of Service: 06/29/23 Chief Complaint: expressive aphasia HPI Narrative EDWIN DICKERSON, is a 78-year-old female history of hypothyroidism and migraines who presented to [facility] ED 06/29/2023 with strokelike symptoms that began in the previous hour. She was going to [place] [facility] for a knee surgery follow-up when she suddenly became confused and had expressive aphasia and EMS noted slurred speech. Patient was a stroke alert on arrival. CT and CTA head and neck negative and telestroke neurologist evaluated, patient back to baseline. Advised patient be admitted for TIA/strokeworkup. In the ED patient had white blood cell count of 13.8 and hemoglobin of 11.4 but workup otherwise unremarkable. Hospitalist contacted for TIA/stroke rule out. Patient evaluated bedside. Patient and note that they were driving to the Ortho office when symptoms began, when they got there she was confused and had expressive aphasia and was slurring words and this lasted roughly an hour and a half or so and has since resolved in the ED. She has never had symptoms like this before, denies any headache, no numbness weakness or tingling anywhere, no other acute complaints [facility] Medical History (Updated 06/29/23 @ 17:[address] Mimi Silvestre MD) Glaucoma High cholesterol History of migraine Hypothyroid Lichen sclerosus Home Medications levothyroxine 50 mcg tablet 50 mcg PO DAILY 09/28/16 [History Last Taken 09/27/16] simvastatin 10 mg tablet 10 mg PO DAILY 09/28/16 [History Last Taken 09/27/16] sumatriptan succinate 50 mg tablet 50 mg PO PRN PRN Headache 09/28/16 [History Last Taken 09/27/16] clobetasol 0.05 % topical ointment 1 applic topical .COMPLEX #15 grams 09/01/22 [Rx Last Taken Unknown] latanoprost 0.005 % eye drops 1 drp ophthalmic (eye) DAILY 09/01/22 [History Last Taken Unknown] dicyclomine 10 mg capsule 10 mg PO TID PRN abdominal pain #20 caps 06/24/23 [Rx Last Taken Unknown] famotidine 20 mg tablet 20 mg PO DAILY 06/24/23 [History Last Taken Unknown] meloxicam 7.5 mg tablet 7.5 mg PO BID 06/24/23 [History Last Taken Unknown] acetaminophen 500 mg capsule 1,000 mg PO BID PRN pain 06/29/23 [History Last Taken Unknown] aspirin 81 mg tablet,delayed release 81 mg PO BID 06/29/23 [History Last Taken Unknown] lactulose 10 gram/15 mL oral solution (Constulose) 06/29/23 [History Last Taken Unknown] Allergy/AdvReac Type Severity Reaction Status Date / Time Penicillins Allergy Intermediate Rash Verified 06/24/23 08:52 amoxicillin Allergy Mild Rash Verified 09/16/22 10:58 Family History Sister Breast cancer Mother CVA (cerebral vascular accident) Father Emphysema lung Brother CVA (cerebral vascular accident) Social History household members: spouse housing: house number of children: 0 current occupational status: retired Smoking Status: Never smoker alcohol intake: current alcohol intake frequency: holidays/special occasions only substance use type: does not use seatbelt use: always do you feel safe at home: Yes additional social history: - Owen No biological children- one adopted- Norman WIN ROS Narrative General: Denies fever/chills HENT: Denies headache, denies stuffy nose, denies sore throat EYES: Denies changes in vision Resp: Denies cough, denies shortness of breath Cardiac: Denies chest pain GI: Denies abdominal pain, denies changes in bowel, denies nausea/vomiting : Denies changes in urination Extremity: Denies swelling MSK: Denies weakness Neuro: Denies any numbness/tingling, had the expressive aphasia and confusion for about an hour and a half that is resolved Heme: Denies any bleeding or bruising Skin: Denies rashes Psychiatric: No complaints voiced Vital Signs Vital Signs Vital Signs: 06/29/23 16:34 06/29/23 16:41 06/29/23 16:44 Temperature 97.7 F L 97.7 F L Temperature Source Temporal Temporal Pulse Rate 90 Respiratory Rate 16 Blood Pressure 140/78 H Blood Pressure Mean 98 Pulse Ox 100 Oxygen Delivery Method Room Air Room Air 06/29/23 16:34 06/29/23 17:04 06/29/23 17:11 Temperature Temperature Source Pulse Rate 78 82 80 Respiratory Rate 15 14 15 Blood Pressure 151/73 H 152/82 H 152/82 H Blood Pressure Mean 99 105 105 Pulse Ox 100 99 97 Oxygen Delivery Method Room Air Room Air Room Air Weight Weight: 76.204 kg Body Mass Index (BMI) 26.4 Physical Exam Narrative General: Alert, oriented, no apparent distress HEENT: Atraumatic, normocephalic Eyes: Anicteric, normal conjunctiva, extraocular movements intact, pupils equal Neck: Supple Respiratory: Clear to auscultation bilaterally, normal respiratory effort Cardiovascular: Regular rate and rhythm GI: Soft, nontender, nondistended Extremities: No edema Musculoskeletal: Strength 5 out of 5 in right upper extremity, 5 out of 5 left upper extremity, full strength not tested in right lower extremity as patient has recent knee replacement but does not have difficulty moving that leg overall, 5 out of 5 left lower extremity Neuro: No overt focal neurological deficits, cranial nerves II through XII intact, [id number] without significant difficulty bilaterally Skin: No rashes appreciated Psych: Cooperative Results Lab / Micro Data 06/29/23 16:30 06/29/23 16:30 Labs: Laboratory Results - last 24 hr 06/29/23 16:30: WBC 13.8 H, RBC 4.37, Hgb 11.4 L, Hct 35.6 L, MCV 81.5, MCH 26.1L, MCHC 32.0, RDW Std Deviation 44.7 H, RDW Coeff of Baudilio 14.9 H, Plt Count 712 H, MPV 9.5, Immature Gran % (Auto) 0.400, Neut % (Auto) 68.8, Lymph % (Auto) 21.4, Rutherford % (Auto) 7.3, Eos % (Auto) 1.7, Baso % (Auto) 0.4, Absolute Neuts (auto) 9.5 H, Absolute Lymphs (auto) 2.94, Nucleated RBC % 0, PT 13.0, INR 1.0, APTT 27.5, Sodium 138, Potassium 4.0, Chloride 109 H, Carbon Dioxide 21.0, AnionGap 8, BUN 19 H, Creatinine 1.02, Estim Creat Clear Calc 48.17, Est GFR (MDRD) Af Amer 68, Est GFR (MDRD) Non-Af 56 L, BUN/Creatinine Ratio 18.6, Glucose 123 H, Calcium 9.2, Troponin I High Sens 8 Imaging Radiology Impression Brain CT 06/29/23 16:34 IMPRESSION: Normal unenhanced CT scan of the brain. Electronically Signed: Wilder Nunez MD at 16:53 EST , ADDENDUM: 06/29/23 1711 IMPRESSION: Normal unenhanced CT scan of the brain. N.B. : The above Results were Read Back by Wilder Nunez MD to Lazarus Flores MD, and understanding confirmed on 06/29/2023 17:04:27 (ET). Electronically Signed: Wilder Nunez MD at 16:53 EST Reading Location ID and State: [address] [place] [address] Tel , Service support , Head/Neck CTA 06/29/23 16:35 IMPRESSION: Normal CTA Head and neck with contrast. Electronically Signed: Wilder Nunez MD at 17:17 EST Reading Location ID and State: [address] [place] [address] Tel , Service support , ADDENDUM: 06/29/23 1729 IMPRESSION: Normal CTA Head and neck with contrast. N.B. : The above Results were Read Back by Wilder Nunez MD to Lazarus Flores MD, and understanding confirmed on 06/29/2023 17:22:46 (ET). Electronically Signed: Wilder Nunez MD at 17:17 EST Reading Location ID and State: [address] [place] [address] Tel , Service support , Assessment & Plan Assessment/Plan (1) Expressive aphasia: (2) Hypothyroid: (3) History of migraine: PLAN: Plan # Brief period of confusion and expressive aphasia -Admit to tele -CT head w/ no acute changes -CTA head and neck negative -MRI ordered -NIH q4hr -asa, statin -Echo w/ bubble study -PT/OT/Speech eval -Hold BP medications to allow for permissive hypertension for 24 hours unless SBP greater than 220 or DBP greater than 120 or until stroke is ruled out # GERD -Continue famotidine # History of migraines -No present headache or symptoms and has not had symptoms like this with headaches previously -Supportive care #Hypothyroidism -Continue Synthroid # Recent right knee replacement -Doing well -Supportive care #DVT ppx: SCDs Mimi Silvestre MD Charges/Coding Visit Charges Inpatient E&M: 23886 Init Hosp L1 06/29/23 1755 <Electronically signed by Mimi Silvestre MD> Cosigner Signature (if applicable): CC: Dr. Petty Garza MD; Dr. Mimi Silvestre MD~ Signed [facility] Work Phone: History and physical note 06-29-2023 Note Date & Type Note Facility 06-29-2023 History and physical note Note Date/Time June 29, 2023 5:51pm [facility] Medical Records Department [address] [place] [address] H&P Exam - Hospitalist 06/29/23 1747 MR#: [id number] Acct: [id number] Name: EDWIN DICKERSON Rep #:[id number] : 1945 78 From: iMmi Silvestre MD PCP: Dr. Petty Garza MD Status:ADM MELISSA Location: [place] [address] HPI - General General Date of Admission: 06/29/23 Date of Service: 06/29/23 Chief Complaint: expressive aphasia HPI Narrative EDWIN DICKERSON, is a 78-year-old female history of hypothyroidism and migraines who presented to [facility] ED 06/29/2023 with strokelike symptoms that began in the previous hour. She was going to [facility] for a knee surgery follow-up when she suddenly became confused and had expressive aphasia and EMS noted slurred speech. Patient was a stroke alert on arrival. CT and CTA head and neck negative and telestroke neurologist evaluated, patient back to baseline. Advised patient be admitted for TIA/strokeworkup. In the ED patient had white blood cell count of 13.8 and hemoglobin of 11.4 but workup otherwise unremarkable. Hospitalist contacted for TIA/stroke rule out. Patient evaluated bedside. Patient and note that they were driving to the Ortho office when symptoms began, when they got there she was confused and had expressive aphasia and was slurring words and this lasted roughly an hour and a half or so and has since resolved in the ED. She has never had symptoms like this before, denies any headache, no numbness weakness or tingling anywhere, no other acute complaints PFSH Medical History (Updated 06/29/23 @ 17:[address] Mimi Silvestre MD) Glaucoma High cholesterol History of migraine Hypothyroid Lichen sclerosus Home Medications levothyroxine 50 mcg tablet 50 mcg PO DAILY 09/28/16 [History Last Taken 09/27/16] simvastatin 10 mg tablet 10 mg PO DAILY 09/28/16 [History Last Taken 09/27/16] sumatriptan succinate 50 mg tablet 50 mg PO PRN PRN Headache 09/28/16 [History Last Taken 09/27/16] clobetasol 0.05 % topical ointment 1 applic topical .COMPLEX #15 grams 09/01/22 [Rx Last Taken Unknown] latanoprost 0.005 % eye drops 1 drp ophthalmic (eye) DAILY 09/01/22 [History Last Taken Unknown] dicyclomine 10 mg capsule 10 mg PO TID PRN abdominal pain #20 caps 06/24/23 [Rx Last Taken Unknown] famotidine 20 mg tablet 20 mg PO DAILY 06/24/23 [History Last Taken Unknown] meloxicam 7.5 mg tablet 7.5 mg PO BID 06/24/23 [History Last Taken Unknown] acetaminophen 500 mg capsule 1,000 mg PO BID PRN pain 06/29/23 [History Last Taken Unknown] aspirin 81 mg tablet,delayed release 81 mg PO BID 06/29/23 [History Last Taken Unknown] lactulose 10 gram/15 mL oral solution (Constulose) 06/29/23 [History Last Taken Unknown] Allergy/AdvReac Type Severity Reaction Status Date / Time Penicillins Allergy Intermediate Rash Verified 06/24/23 08:52 amoxicillin Allergy Mild Rash Verified 09/16/22 10:58 Family History Sister Breast cancer Mother CVA (cerebral vascular accident) Father Emphysema lung Brother CVA (cerebral vascular accident) Social History household members: spouse housing: house number of children: 0 current occupational status: retired Smoking Status: Never smoker alcohol intake: current alcohol intake frequency: holidays/special occasions only substance use type: does not use seatbelt use: always do you feel safe at home: Yes additional social history: - Owen No biological children- one adopted- Norman ROS ROS Narrative General: Denies fever/chills HENT: Denies headache, denies stuffy nose, denies sore throat EYES: Denies changes in vision Resp: Denies cough, denies shortness of breath Cardiac: Denies chest pain GI: Denies abdominal pain, denies changes in bowel, denies nausea/vomiting : Denies changes in urination Extremity: Denies swelling MSK: Denies weakness Neuro: Denies any numbness/tingling, had the expressive aphasia and confusion for about an hour and a half that is resolved Heme: Denies any bleeding or bruising Skin: Denies rashes Psychiatric: No complaints voiced Vital Signs Vital Signs Vital Signs: 06/29/23 16:34 06/29/23 16:41 06/29/23 16:44 Temperature 97.7 F L 97.7 F L Temperature Source Temporal Temporal Pulse Rate 90 Respiratory Rate 16 Blood Pressure 140/78 H Blood Pressure Mean 98 Pulse Ox 100 Oxygen Delivery Method Room Air Room Air 06/29/23 16:34 06/29/23 17:04 06/29/23 17:11 Temperature Temperature Source Pulse Rate 78 82 80 Respiratory Rate 15 14 15 Blood Pressure 151/73 H 152/82 H 152/82 H Blood Pressure Mean 99 105 105 Pulse Ox 100 99 97 Oxygen Delivery Method Room Air Room Air Room Air Weight Weight: 76.204 kg Body Mass Index (BMI) 26.4 Physical Exam Narrative General: Alert, oriented, no apparent distress HEENT: Atraumatic, normocephalic Eyes: Anicteric, normal conjunctiva, extraocular movements intact, pupils equal Neck: Supple Respiratory: Clear to auscultation bilaterally, normal respiratory effort Cardiovascular: Regular rate and rhythm GI: Soft, nontender, nondistended Extremities: No edema Musculoskeletal: Strength 5 out of 5 in right upper extremity, 5 out of 5 left upper extremity, full strength not tested in right lower extremity as patient has recent knee replacement but does not have difficulty moving that leg overall, 5 out of 5 left lower extremity Neuro: No overt focal neurological deficits, cranial nerves II through XII intact, [id number] without significant difficulty bilaterally Skin: No rashes appreciated Psych: Cooperative Results Lab / Micro Data 06/29/23 16:30 06/29/23 16:30 Labs: Laboratory Results - last 24 hr 06/29/23 16:30: WBC 13.8 H, RBC 4.37, Hgb 11.4 L, Hct 35.6 L, MCV 81.5, MCH 26.1L, MCHC 32.0, RDW Std Deviation 44.7 H, RDW Coeff of Baudilio 14.9 H, Plt Count 712 H, MPV 9.5, Immature Gran % (Auto) 0.400, Neut % (Auto) 68.8, Lymph % (Auto) 21.4, Rutherford % (Auto) 7.3, Eos % (Auto) 1.7, Baso % (Auto) 0.4, Absolute Neuts (auto) 9.5 H, Absolute Lymphs (auto) 2.94, Nucleated RBC % 0, PT 13.0, INR 1.0, APTT 27.5, Sodium 138, Potassium 4.0, Chloride 109 H, Carbon Dioxide 21.0, AnionGap 8, BUN 19 H, Creatinine 1.02, Estim Creat Clear Calc 48.17, Est GFR (MDRD) Af Amer 68, Est GFR (MDRD) Non-Af 56 L, BUN/Creatinine Ratio 18.6, Glucose 123 H, Calcium 9.2, Troponin I High Sens 8 Imaging Radiology Impression Brain CT 06/29/23 16:34 IMPRESSION: Normal unenhanced CT scan of the brain. Electronically Signed: Wilder Nunez MD at 16:53 EST Reading Location ID and State: [address] [place] [address] Tel , Service support , ADDENDUM: 06/29/23 1711 IMPRESSION: Normal unenhanced CT scan of the brain. N.B. : The above Results were Read Back by Wilder Nunez MD to Lazarus Flores MD, and understanding confirmed on 06/29/2023 17:04:27 (ET). Electronically Signed: Wilder Nunez MD at 16:53 EST Reading Location ID and State: [address] [place] [address] Tel , Service support , Head/Neck CTA 06/29/23 16:35 IMPRESSION: Normal CTA Head and neck with contrast. Electronically Signed: Wilder Nunez MD at 17:17 EST Reading Location ID and State: [facility] / [place] Tel , Service support , ADDENDUM: 06/29/23 1729 IMPRESSION: Normal CTA Head and neck with contrast. N.B. : The above Results were Read Back by Wilder Nunez MD to Lazarus Flores MD, and understanding confirmed on 06/29/2023 17:22:46 (ET). Electronically Signed: Wilder Nunez MD at 17:17 EST Reading Location ID and State: [facility] / [place] Tel , Service support , Assessment & Plan Assessment/Plan (1) Expressive aphasia: (2) Hypothyroid: (3) History of migraine: PLAN: Plan # Brief period of confusion and expressive aphasia -Admit to tele -CT head w/ no acute changes -CTA head and neck negative -MRI ordered -NIH q4hr -asa, statin -Echo w/ bubble study -PT/OT/Speech eval -Hold BP medications to allow for permissive hypertension for 24 hours unless SBP greater than 220 or DBP greater than 120 or until stroke is ruled out # GERD -Continue famotidine # History of migraines -No present headache or symptoms and has not had symptoms like this with headaches previously -Supportive care #Hypothyroidism -Continue Synthroid # Recent right knee replacement -Doing well -Supportive care #DVT ppx: SCDs Mimi Silvestre MD Charges/Coding Visit Charges Inpatient E&M: 94538 Init Hosp L1 06/29/23 6375 <Electronically signed by Mimi Silvestre MD> Cosigner Signature (if applicable): CC: Dr. Petty Garza MD; Dr. Mimi Silvestre MD~ Signed [facility] Work Phone: Discharge summary 06-29-2023 Note Date & Type Note Facility 06-29-2023 Discharge summary Note Date/Time June 29, 2023 4:39pm [facility] Medical Records Department [address] [place] [address] Emergency Department Summary 06/29/23 MR#: [id number] Acct: [id number] Name: EDWIN DICKERSON Rep #:[id number] : 1945 78 From: Lazarus Flores MD PCP: Dr. Petty Garza MD Status:REG ER Location: ED HPI History of Present Illness Chief Complaint: Stroke Alert Narrative Narrative: 78-year-old female presents via EMS with strokelike symptoms that began within the last hour. She was at [facility] for a knee surgery follow-up. All of a sudden, she became confused and had expressive aphasia. She was havingproblems finding her words, and could not answer, then EMS noted slurred speech. Patient denies any headache. Prehospital stroke team was initiated by EMS. Patient will answer I do not know to certain questions. [facility] Medical History Glaucoma High cholesterol Hypothyroid Lichen sclerosus Home Medications levothyroxine 50 mcg tablet 50 mcg PO DAILY 09/28/16 [History Last Taken 09/27/16] simvastatin 10 mg tablet 10 mg PO DAILY 09/28/16 [History Last Taken 09/27/16] sumatriptan succinate 50 mg tablet 50 mg PO PRN PRN Headache 09/28/16 [History Last Taken 09/27/16] clobetasol 0.05 % topical ointment 1 applic topical .COMPLEX #15 grams 09/01/22 [Rx Last Taken Unknown] latanoprost 0.005 % eye drops 1 drp ophthalmic (eye) DAILY 09/01/22 [History Last Taken Unknown] dicyclomine 10 mg capsule 10 mg PO TID PRN abdominal pain #20 caps 06/24/23 [Rx Last Taken Unknown] famotidine 20 mg tablet 20 mg PO DAILY 06/24/23 [History Last Taken Unknown] meloxicam 7.5 mg tablet 7.5 mg PO BID 06/24/23 [History Last Taken Unknown] acetaminophen 500 mg capsule 1,000 mg PO BID PRN pain 06/29/23 [History Last Taken Unknown] aspirin 81 mg tablet,delayed release 81 mg PO BID 06/29/23 [History Last Taken Unknown] lactulose 10 gram/15 mL oral solution (Constulose) 06/29/23 [History Last Taken Unknown] Allergy/AdvReac Type Severity Reaction Status Date / Time Penicillins Allergy Intermediate Rash Verified 06/24/23 08:52 amoxicillin Allergy Mild Rash Verified 09/16/22 10:58 Family History Sister Breast cancer Mother CVA (cerebral vascular accident) Father Emphysema lung Brother CVA (cerebral vascular accident) Social History household members: spouse housing: house number of children: 0 current occupational status: retired Smoking Status: Never smoker alcohol intake: current alcohol intake frequency: holidays/special occasions only substance use type: does not use seatbelt use: always do you feel safe at home: Yes additional social history: - Owen No biological children- one adopted- Norman ROS ROS ED ROS Narrative Mildly limited secondary to patient's expressive aphasia. Obtained from EMS. Constitutional: No fever, no chills. HEENT: No sore throat. No neck pain. No loss of vision. No rhinorrhea. Cardiovascular: No chest pain. No palpitations. No pedal edema. Respiratory: No cough, no shortness of breath. Abdominal: No abdominal pain. No nausea. No vomiting. Genitourinary: No dysuria. No hematuria. Musculoskeletal: No myalgias. No arthralgias. Neurologic: No headaches. No dizziness. No lightheadedness. Positive slurred speech. Positive expressive aphasia. Skin: No rash. No change in color. Psychiatric: No depression. No anxiety. EXAM Physical Exam Narrative Exam Narrative: Afebrile. Vital signs noted. HEENT: Normocephalic. Atraumatic. PERRL, EOMI. Neck soft and supple. No pointtenderness or step off. Cardiovascular: Regular rate and rhythm. No murmurs, rubs, or gallops appreciated. Respiratory: No tachypnea. Lungs clear to auscultation bilaterally. Gastrointestinal: Abdomen soft, nontender, with normoactive bowel sounds. No rebound or guarding. Neurological: Awake. Alert. Nonfocal, nonlateralizing. Positive mild expressiveaphasia. Positive slight dysarthria. Skin: No rash. Normal color. No pallor. Musculoskeletal: No pedal edema. Full range of motion extremities. Const Vital Signs: 06/29/23 16:34 06/29/23 16:41 06/29/23 16:44 Temperature 97.7 F L 97.7 F L Temperature Source Temporal Temporal Pulse Rate 90 Respiratory Rate 16 Blood Pressure 140/78 H Blood Pressure Mean 98 Pulse Ox 100 Oxygen Delivery Method Room Air Room Air 06/29/23 16:34 06/29/23 17:04 06/29/23 17:11 Temperature Temperature Source Pulse Rate 78 82 80 Respiratory Rate 15 14 15 Blood Pressure 151/73 H 152/82 H 152/82 H Blood Pressure Mean 99 105 105 Pulse Ox 100 99 97 Oxygen Delivery Method Room Air Room Air Room Air NIHSS NIHSS Initial: 1a Level of Consciousness: 0 1b LOC Questions (Score 2 if aphasic/stupor): 1 1c LOC Commands (Only score 1st attempt): 0 2 Best Gaze (If aphasic, use reflexive mvmts.): 0 3 Visual: 0 4 Facial Palsy: 0 5 Motor Arm Right (UN = amputation/fusion): 0 5 Motor Arm Left: 0 6 Motor Leg Right: 0 6 Motor Leg Left: 0 8 Sensory (Aphasia/stupor=0 or 1, coma=2): 0 9 Best Language: 1 10 Dysarthria (mute, coma=2, intubated=UN): 1 11 Extinction and Inattention (only scored if +): 0 Total Score: 3 MDM MDM MDM Narrative Medical decision making narrative: As prehospital stroke team was called, she was evaluated initially with an NIH of approximately 3 for dysarthria, expressive aphasia, and level of consciousness question was answered incorrectly as she could not state the month. I reviewed her laboratory work and she has a leukocytosis of 13.8 which I think is nonspecific, hemoglobin stable at 11.4, hematocrit 35.6, platelet count elevated 712 which may be an acute phase reactant. Coagulation studies are normal with an INR of 1.0 and a PTT of 27.5, electrolyte panel is grossly unremarkable except for chloride of 109 which I think is nonspecific, glucose appropriately elevated at 123 with an anion gap normal at 8. BUN slightly elevated at 19 with creatinine 1.02. High-sensitivity troponin is 8. EKG was obtained and interpreted by myself independently as normal sinus rhythm at 82 bpm without ectopy or acute ST changes. No STEMI. I discussed the CT of the brain results with the radiologist over the telephone and it shows no acute hemorrhage or mass. Additionally, I discussed with him over the telephone the results of the CTA which shows no large vessel occlusion. I also entered the room and spoke with the teleneurologist who states that as her symptoms have improved significantly, this is more of a TIA so TNK is not indicated. I will discuss patient with the hospitalist for observation here in the PCU. Upon my repeat examination at approximately 1715, her expressive aphasia has improved and she is able to object name and no longer has an extremeexpressive aphasia. She knows the month as well. I discussed the patient with Dr. Mimi Silvestre for observation in the PCU. Patient is in stable condition. History & Record Review Discussion w/independent historian: Patient and Family Additional record(s) reviewed:: Prior ED visit and Prior labs Lab Data Attestation: I reviewed the patient's lab results. Labs: Laboratory Results - last 24 hr 06/29/23 16:30 WBC 13.8 H RBC 4.37 Hgb 11.4 L Hct 35.6 L MCV 81.5 MCH 26.1 L MCHC 32.0 RDW Std Deviation 44.7 H RDW Coeff of Baudilio 14.9 H Plt Count 712 H MPV 9.5 Immature Gran % (Auto) 0.400 Neut % (Auto) 68.8 Lymph % (Auto) 21.4 Rutherford % (Auto) 7.3 Eos % (Auto) 1.7 Baso % (Auto) 0.4 Absolute Neuts (auto) 9.5 H Absolute Lymphs (auto) 2.94 Nucleated RBC % 0 PT 13.0 INR 1.0 APTT 27.5 Sodium 138 Potassium 4.0 Chloride 109 H Carbon Dioxide 21.0 Anion Gap 8 BUN 19 H Creatinine 1.02 Estim Creat Clear Calc 48.17 Est GFR (MDRD) Af Amer 68 Est GFR (MDRD) Non-Af 56 L BUN/Creatinine Ratio 18.6 Glucose 123 H Calcium 9.2 Troponin I High Sens 8 Radiography Diagnostic Testing: Clinical Impression(s) from Imaging Studies Brain CT 06/29/23 16:34 IMPRESSION: Normal unenhanced CT scan of the brain. Electronically Signed: Wilder Nunez MD at 16:53 EST , ADDENDUM: 06/29/23 1711 IMPRESSION: Normal unenhanced CT scan of the brain. N.B. : The above Results were Read Back by Wilder Nunez MD to Lazarus Flores MD, and understanding confirmed on 06/29/2023 17:04:27 (ET). Electronically Signed: Wilder Nunez MD at 16:53 EST , Head/Neck CTA 06/29/23 16:35 IMPRESSION: Normal CTA Head and neck with contrast. Electronically Signed: Wilder Nunez MD at 17:17 EST Reading Location ID and State: [address] [place] [address] Tel , Service support , Management Discussion w/another healthcare provider: Hospitalist, Pilot Safety Inspector (Teleneurologist, Dr. Srivastava) and Radiologist Discharge Plan Triage Chief Complaint: Stroke Alert ED Provider: Lazarus Flores Dx/Rx/DC Orders Prescriptions: No Action latanoprost 0.005 % drops 1 drp ophthalmic (eye) DAILY clobetasol 0.05 % ointment 1 applic topical .COMPLEX Qty: 15 3RF Rx Instructions: 1 applic topically rub in small amount daily X 2 weeks then prn; simvastatin 10 MG tablet 10 mg PO DAILY sumatriptan succinate 50 MG tablet 50 mg PO PRN PRN (Reason: Headache) levothyroxine 50 MCG tablet 50 mcg PO DAILY famotidine 20 mg tablet 20 mg PO DAILY meloxicam 7.5 mg tablet 7.5 mg PO BID dicyclomine 10 mg capsule 10 mg PO TID PRN (Reason: abdominal pain) Qty: 20 0RF acetaminophen 500 mg capsule 1,000 mg PO BID PRN (Reason: pain) aspirin 81 mg tablet,delayed release (DR/EC) 81 mg PO BID lactulose [Constulose] 10 gram/15 mL solution Primary Care Provider: Petty Garza Referrals: Petty Garza MD [Primary Care Provider] - What to do if you have Problems For any increased pain, shortness of breath, bleeding, nausea or vomiting, chestpain, or any unexpected problems, contact your Primary Care Provider. Call [facility] ([phone]) or report to the closest Emergency Room. Call 911 if necessary. 06/29/23 1730 <Electronically signed by Lazarus Flores MD> Cosigner Signature (if applicable): CC: Dr. Petty Garza MD ~ Signed [facility] Work Phone: Discharge summary 06-29-2023 Note Date & Type Note Facility 06-29-2023 Discharge summary Note Date/Time June 29, 2023 4:39pm [facility] Medical Records Department [address] [place] [address] Emergency Department Summary 06/29/23 MR#: [id number] Acct: [id number] Name: EDWIN DICKERSON Rep #:[id number] : 1945 78 From: Lazarus Flores MD PCP: Dr. Petty Garza MD Status:REG ER Location: ED HPI History of Present Illness Chief Complaint: Stroke Alert Narrative Narrative: 78-year-old female presents via EMS with strokelike symptoms that began within the last hour. She was at [facility] for a knee surgery follow-up. All of a sudden, she became confused and had expressive aphasia. She was havingproblems finding her words, and could not answer, then EMS noted slurred speech. Patient denies any headache. Prehospital stroke team was initiated by EMS. Patient will answer I do not know to certain questions. [facility] Medical History Glaucoma High cholesterol Hypothyroid Lichen sclerosus Home Medications levothyroxine 50 mcg tablet 50 mcg PO DAILY 09/28/16 [History Last Taken 09/27/16] simvastatin 10 mg tablet 10 mg PO DAILY 09/28/16 [History Last Taken 09/27/16] sumatriptan succinate 50 mg tablet 50 mg PO PRN PRN Headache 09/28/16 [History Last Taken 09/27/16] clobetasol 0.05 % topical ointment 1 applic topical .COMPLEX #15 grams 09/01/22 [Rx Last Taken Unknown] latanoprost 0.005 % eye drops 1 drp ophthalmic (eye) DAILY 09/01/22 [History Last Taken Unknown] dicyclomine 10 mg capsule 10 mg PO TID PRN abdominal pain #20 caps 06/24/23 [Rx Last Taken Unknown] famotidine 20 mg tablet 20 mg PO DAILY 06/24/23 [History Last Taken Unknown] meloxicam 7.5 mg tablet 7.5 mg PO BID 06/24/23 [History Last Taken Unknown] acetaminophen 500 mg capsule 1,000 mg PO BID PRN pain 06/29/23 [History Last Taken Unknown] aspirin 81 mg tablet,delayed release 81 mg PO BID 06/29/23 [History Last Taken Unknown] lactulose 10 gram/15 mL oral solution (Constulose) 06/29/23 [History Last Taken Unknown] Allergy/AdvReac Type Severity Reaction Status Date / Time Penicillins Allergy Intermediate Rash Verified 06/24/23 08:52 amoxicillin Allergy Mild Rash Verified 09/16/22 10:58 Family History Sister Breast cancer Mother CVA (cerebral vascular accident) Father Emphysema lung Brother CVA (cerebral vascular accident) Social History household members: spouse housing: house number of children: 0 current occupational status: retired Smoking Status: Never smoker alcohol intake: current alcohol intake frequency: holidays/special occasions only substance use type: does not use seatbelt use: always do you feel safe at home: Yes additional social history: - Owen No biological children- one adopted- Norman ROS ROS ED ROS Narrative Mildly limited secondary to patient's expressive aphasia. Obtained from EMS. Constitutional: No fever, no chills. HEENT: No sore throat. No neck pain. No loss of vision. No rhinorrhea. Cardiovascular: No chest pain. No palpitations. No pedal edema. Respiratory: No cough, no shortness of breath. Abdominal: No abdominal pain. No nausea. No vomiting. Genitourinary: No dysuria. No hematuria. Musculoskeletal: No myalgias. No arthralgias. Neurologic: No headaches. No dizziness. No lightheadedness. Positive slurred speech. Positive expressive aphasia. Skin: No rash. No change in color. Psychiatric: No depression. No anxiety. EXAM Physical Exam Narrative Exam Narrative: Afebrile. Vital signs noted. HEENT: Normocephalic. Atraumatic. PERRL, EOMI. Neck soft and supple. No pointtenderness or step off. Cardiovascular: Regular rate and rhythm. No murmurs, rubs, or gallops appreciated. Respiratory: No tachypnea. Lungs clear to auscultation bilaterally. Gastrointestinal: Abdomen soft, nontender, with normoactive bowel sounds. No rebound or guarding. Neurological: Awake. Alert. Nonfocal, nonlateralizing. Positive mild expressiveaphasia. Positive slight dysarthria. Skin: No rash. Normal color. No pallor. Musculoskeletal: No pedal edema. Full range of motion extremities. Const Vital Signs: 06/29/23 16:34 06/29/23 16:41 06/29/23 16:44 Temperature 97.7 F L 97.7 F L Temperature Source Temporal Temporal Pulse Rate 90 Respiratory Rate 16 Blood Pressure 140/78 H Blood Pressure Mean 98 Pulse Ox 100 Oxygen Delivery Method Room Air Room Air 06/29/23 16:34 06/29/23 17:04 06/29/23 17:11 Temperature Temperature Source Pulse Rate 78 82 80 Respiratory Rate 15 14 15 Blood Pressure 151/73 H 152/82 H 152/82 H Blood Pressure Mean 99 105 105 Pulse Ox 100 99 97 Oxygen Delivery Method Room Air Room Air Room Air NIHSS NIHSS Initial: 1a Level of Consciousness: 0 1b LOC Questions (Score 2 if aphasic/stupor): 1 1c LOC Commands (Only score 1st attempt): 0 2 Best Gaze (If aphasic, use reflexive mvmts.): 0 3 Visual: 0 4 Facial Palsy: 0 5 Motor Arm Right (UN = amputation/fusion): 0 5 Motor Arm Left: 0 6 Motor Leg Right: 0 6 Motor Leg Left: 0 8 Sensory (Aphasia/stupor=0 or 1, coma=2): 0 9 Best Language: 1 10 Dysarthria (mute, coma=2, intubated=UN): 1 11 Extinction and Inattention (only scored if +): 0 Total Score: 3 MDM MDM MDM Narrative Medical decision making narrative: As prehospital stroke team was called, she was evaluated initially with an NIH of approximately 3 for dysarthria, expressive aphasia, and level of consciousness question was answered incorrectly as she could not state the month. I reviewed her laboratory work and she has a leukocytosis of 13.8 which I think is nonspecific, hemoglobin stable at 11.4, hematocrit 35.6, platelet count elevated 712 which may be an acute phase reactant. Coagulation studies are normal with an INR of 1.0 and a PTT of 27.5, electrolyte panel is grossly unremarkable except for chloride of 109 which I think is nonspecific, glucose appropriately elevated at 123 with an anion gap normal at 8. BUN slightly elevated at 19 with creatinine 1.02. High-sensitivity troponin is 8. EKG was obtained and interpreted by myself independently as normal sinus rhythm at 82 bpm without ectopy or acute ST changes. No STEMI. I discussed the CT of the brain results with the radiologist over the telephone and it shows no acute hemorrhage or mass. Additionally, I discussed with him over the telephone the results of the CTA which shows no large vessel occlusion. I also entered the room and spoke with the teleneurologist who states that as her symptoms have improved significantly, this is more of a TIA so TNK is not indicated. I will discuss patient with the hospitalist for observation here in the PCU. Upon my repeat examination at approximately 1715, her expressive aphasia has improved and she is able to object name and no longer has an extremeexpressive aphasia. She knows the month as well. I discussed the patient with Dr. Mimi Silvestre for observation in the PCU. Patient is in stable condition. History & Record Review Discussion w/independent historian: Patient and Family Additional record(s) reviewed:: Prior ED visit and Prior labs Lab Data Attestation: I reviewed the patient's lab results. Labs: Laboratory Results - last 24 hr 06/29/23 16:30 WBC 13.8 H RBC 4.37 Hgb 11.4 L Hct 35.6 L MCV 81.5 MCH 26.1 L MCHC 32.0 RDW Std Deviation 44.7 H RDW Coeff of Baudilio 14.9 H Plt Count 712 H MPV 9.5 Immature Gran % (Auto) 0.400 Neut % (Auto) 68.8 Lymph % (Auto) 21.4 Rutherford % (Auto) 7.3 Eos % (Auto) 1.7 Baso % (Auto) 0.4 Absolute Neuts (auto) 9.5 H Absolute Lymphs (auto) 2.94 Nucleated RBC % 0 PT 13.0 INR 1.0 APTT 27.5 Sodium 138 Potassium 4.0 Chloride 109 H Carbon Dioxide 21.0 Anion Gap 8 BUN 19 H Creatinine 1.02 Estim Creat Clear Calc 48.17 Est GFR (MDRD) Af Amer 68 Est GFR (MDRD) Non-Af 56 L BUN/Creatinine Ratio 18.6 Glucose 123 H Calcium 9.2 Troponin I High Sens 8 Radiography Diagnostic Testing: Clinical Impression(s) from Imaging Studies Brain CT 06/29/23 16:34 IMPRESSION: Normal unenhanced CT scan of the brain. Electronically Signed: Wilder Nunez MD at 16:53 EST Reading Location [place] and [place] [facility] [place] support , ADDENDUM: 06/29/23 1711 IMPRESSION: Normal unenhanced CT scan of the brain. N.B. : The above Results were Read Back by Wilder Nunez MD to Lazarus Flores MD, and understanding confirmed on 06/29/2023 17:04:27 (ET). Electronically Signed: Wilder Nunez MD at 16:53 EST Reading Location ID and State: [facility] / [place] Tel , Service support , Head/Neck CTA 06/29/23 16:35 IMPRESSION: Normal CTA Head and neck with contrast. Electronically Signed: Wilder Nunez MD at 17:17 EST Reading Location ID and State: [facility] / [place] Tel , Service support , Management Discussion w/another healthcare provider: Hospitalist, Pilot Safety Inspector (Teleneurologist, Dr. Srivastava) and Radiologist Discharge Plan Triage Chief Complaint: Stroke Alert ED Provider: Lazarus Flores Dx/Rx/DC Orders Prescriptions: No Action latanoprost 0.005 % drops 1 drp ophthalmic (eye) DAILY clobetasol 0.05 % ointment 1 applic topical .COMPLEX Qty: 15 3RF Rx Instructions: 1 applic topically rub in small amount daily X 2 weeks then prn; simvastatin 10 MG tablet 10 mg PO DAILY sumatriptan succinate 50 MG tablet 50 mg PO PRN PRN (Reason: Headache) levothyroxine 50 MCG tablet 50 mcg PO DAILY famotidine 20 mg tablet 20 mg PO DAILY meloxicam 7.5 mg tablet 7.5 mg PO BID dicyclomine 10 mg capsule 10 mg PO TID PRN (Reason: abdominal pain) Qty: 20 0RF acetaminophen 500 mg capsule 1,000 mg PO BID PRN (Reason: pain) aspirin 81 mg tablet,delayed release (DR/EC) 81 mg PO BID lactulose [Constulose] 10 gram/15 mL solution Primary Care Provider: Petty Garza Referrals: Petty Garza MD [Primary Care Provider] - What to do if you have Problems For any increased pain, shortness of breath, bleeding, nausea or vomiting, chestpain, or any unexpected problems, contact your Primary Care Provider. Call [facility] ([phone]) or report to the closest Emergency Room. Call 911 if necessary. 06/29/23 1730 <Electronically signed by Lazarus Flores MD> Cosigner Signature (if applicable): CC: Dr. Petty Garza MD ~ Signed [facility] Work Phone: Consult note Note Date & Type Note Facility Consult note Note Date/Time June 30, 2023 1:31pm [facility] Medical Records Department [address] [place] [address] Consultation - Neurology 06/30/23 1327 MR#: [id number] Acct: [id number] Name: EDWIN DICKERSON Rep #:[id number] : 1945 78 From: Sebastien Rosenthal MD PCP: Dr. Petty Garza MD Status:ADM MELISSA Location: [place] [address] Assessment and Plan: Stroke Assessment/Plan EDWIN DICKERSON is a 78 F with transient aphasia concerning for TIA. Symptomshave since resolved. Neuroimaging unremarkable. - ASA 81mg daily. - LDL sufficiently low not to require daily statin - TTE pending: assuming this has no significant findings, would send home with cardiac event monitor and outpatient follow up HPI Consult Data Date of Consult: 06/30/23 HPI Narrative HPI Narrative: EDWIN DICKERSON is a 78 F with transient aphasia concerning for TIA. Symptomshave since resolved. Neuroimaging unremarkable. [facility] Medical History (Updated 06/29/23 @ 20:47 by Emily Sanchez RN) Glaucoma High cholesterol History of migraine Hypothyroid Lichen sclerosus Migraines Home Medications sumatriptan succinate 50 mg tablet 50 mg PO PRN PRN Headache 09/28/16 [History Last Taken 09/27/16] clobetasol 0.05 % topical ointment 1 applic topical .COMPLEX #15 grams 09/01/22 [Rx Last Taken Unknown] latanoprost 0.005 % eye drops 1 drp ophthalmic (eye) DAILY eye health 09/01/22 [History Last Taken Unknown] dicyclomine 10 mg capsule 10 mg PO TID PRN abdominal pain #20 caps 06/24/23 [Rx Last Taken Unknown] famotidine 20 mg tablet 20 mg PO DAILY reflux 06/24/23 [History Last Taken Unknown] acetaminophen 500 mg capsule 1,000 mg PO BID PRN pain 06/29/23 [History Last Taken Unknown] aspirin 81 mg tablet,delayed release 81 mg PO BID heart health 06/29/23 [History Last Taken Unknown] lactulose 10 gram/15 mL oral solution (Constulose) 06/29/23 [History Last Taken Unknown] atorvastatin 20 mg tablet 20 mg PO QHS #30 tabs 06/30/23 [Rx Last Taken Unknown] levothyroxine 75 mcg tablet 75 mcg PO DAILY #30 tabs 06/30/23 [Rx Last Taken Unknown] meloxicam 7.5 mg tablet 7.5 mg PO BID PRN arthritis pain #3 tabs 06/30/23 [Rx Last Taken Unknown] Allergy/AdvReac Type Severity Reaction Status Date / Time Penicillins Allergy Intermediate Rash Verified 06/24/23 08:52 amoxicillin Allergy Mild Rash Verified 09/16/22 10:58 Family History Sister Breast cancer Mother CVA (cerebral vascular accident) Father Emphysema lung Brother CVA (cerebral vascular accident) Social History household members: spouse housing: house number of children: 0 current occupational status: retired Smoking Status: Never smoker alcohol intake: current alcohol intake frequency: holidays/special occasions only substance use type: does not use seatbelt use: always do you feel safe at home: Yes additional social history: - Owen No biological children- one adopted- Norman Vital Signs Vital Signs Vital Signs: 06/29/23 16:34 06/29/23 16:41 06/29/23 16:44 Temperature 97.7 F L 97.7 F L Temperature Source Temporal Temporal Pulse Rate 90 Respiratory Rate 16 Respiratory Effort Respiratory Depth Respiratory Pattern Blood Pressure 140/78 H Blood Pressure Mean 98 Blood Pressure Source Blood Pressure Position Blood Pressure Location Pulse Ox 100 Oxygen Delivery Method Room Air Room Air 06/29/23 16:34 06/29/23 17:04 06/29/23 17:11 Temperature Temperature Source Pulse Rate 78 82 80 Respiratory Rate 15 14 15 Respiratory Effort Respiratory Depth Respiratory Pattern Blood Pressure 151/73 H 152/82 H 152/82 H Blood Pressure Mean 99 105 105 Blood Pressure Source Blood Pressure Position Blood Pressure Location Pulse Ox 100 99 97 Oxygen Delivery Method Room Air Room Air Room Air 06/29/23 17:31 06/29/23 18:00 06/29/23 19:03 Temperature Temperature Source Pulse Rate 74 80 Respiratory Rate 16 13 Respiratory Effort Respiratory Depth Respiratory Pattern Blood Pressure 137/89 H 143/84 H Blood Pressure Mean 105 103 Blood Pressure Source Blood Pressure Position Blood Pressure Location Pulse Ox 97 94 Oxygen Delivery Method Room Air 06/29/23 19:09 06/29/23 20:10 06/29/23 20:12 Temperature 98.2 F 98 F 98 F Temperature Source Oral Oral Pulse Rate 79 75 72 Respiratory Rate 18 16 16 Respiratory Effort Respiratory Depth Respiratory Pattern Blood Pressure 141/86 H 142/80 H 142/80 H Blood Pressure Mean 104 100 100 Blood Pressure Source Monitor Monitor Blood Pressure Position Semi-Fowlers Semi-Fowlers Blood Pressure Location Left Arm Left Arm Pulse Ox 97 99 97 Oxygen Delivery Method Room Air Room Air 06/29/23 21:10 06/29/23 22:00 06/29/23 20:30 Temperature 97.6 F L Temperature Source Oral Pulse Rate 81 Respiratory Rate 16 Respiratory Effort Normal Respiratory Depth Normal Respiratory Pattern Normal Blood Pressure 128/72 H Blood Pressure Mean 90 Blood Pressure Source Monitor Blood Pressure Position Semi-Fowlers Blood Pressure Location Left Arm Pulse Ox 94 98 Oxygen Delivery Method Room Air Room Air Room Air 06/30/23 02:00 06/30/23 02:00 06/30/23 03:04 Temperature 98.4 F 98.4 F Temperature Source Oral Oral Pulse Rate 83 83 Respiratory Rate 16 16 Respiratory Effort Normal Respiratory Depth Normal Respiratory Pattern Normal Blood Pressure 126/73 H 126/73 H Blood Pressure Mean 90 90 Blood Pressure Source Monitor Monitor Blood Pressure Position Semi-Fowlers Semi-Fowlers Blood Pressure Location Left Arm Left Arm Pulse Ox 98 98 Oxygen Delivery Method Room Air Room Air Room Air 06/30/23 06:00 06/30/23 06:00 06/30/23 07:25 Temperature 98.3 F 98.3 F Temperature Source Oral Oral Pulse Rate 80 75 Respiratory Rate 16 16 Respiratory Effort Respiratory Depth Respiratory Pattern Blood Pressure 132/79 H 132/79 H Blood Pressure Mean 96 96 Blood Pressure Source Monitor Monitor Blood Pressure Position Semi-Fowlers Semi-Fowlers Blood Pressure Location Left Arm Left Arm Pulse Ox 97 95 93 Oxygen Delivery Method Room Air Room Air Room Air 06/30/23 09:32 06/30/23 10:00 06/30/23 10:00 Temperature 98.9 F 97.8 F Temperature Source Temporal Temporal Pulse Rate 86 75 75 Respiratory Rate 16 16 Respiratory Effort Respiratory Depth Respiratory Pattern Blood Pressure 112/65 119/77 Blood Pressure Mean 80 91 Blood Pressure Source Monitor Monitor Blood Pressure Position Sitting Semi-Fowlers Blood Pressure Location Left Arm Left Arm Pulse Ox 97 100 Oxygen Delivery Method Room Air Room Air 06/30/23 12:00 Temperature 97.9 F Temperature Source Temporal Pulse Rate 75 Respiratory Rate 16 Respiratory Effort Respiratory Depth Respiratory Pattern Blood Pressure 119/77 Blood Pressure Mean 91 Blood Pressure Source Monitor Blood Pressure Position Semi-Fowlers Blood Pressure Location Left Arm Pulse Ox 100 Oxygen Delivery Method Room Air Weight Weight: 77.1 kg Body Mass Index (BMI) 26.6 EEG Results Procedure Details EEG Procedure Details: EDWIN DICKERSON is a 78 year old F with a past medical history of , who presents for evaluation of Electroencephalogram on DATE at TIME NIHSS NIHSS Nursing Documentation NIHSS Nursing Documentation: NIHSS: Ischemic Stroke/TIA Start: 06/29/23 20:17 Text: For PCU Patients: NIH and Neuro Check every 4 Status: Active hours and PRN Freq: [id number] Protocol: Activity Type Activity Date Activity User E-sign Co-sign Detail Recorded Client Recorded Date Recorded By Document 06/30/23 10:00 LW Desktop 06/30/23 12:07 LW 06/30/23 10:00 NIH Stroke Scale [NIHSS] A score of 0 is normal or asymptomatic . Total possible score is 42. Inpatient: RN or Physician to activate a stroke alert for onset of new stroke symptoms or with NIHSS increase >/= 3 points. Following change in neurological status, NIHSS will be performed per physician order or more frequently PRN. -1a. Level of Consciousness Alert; keenly responsive -1b. LOC Questions Answers BOTH questions correctly. -1c. LOC Commands Performs both tasks correctly . -2. Best Gaze Normal -3. Visual No visual loss -4. Facial Palsy Normal symmetrical movements -5a. Left Arm No drift; arm holds 90 (or 45 ) degrees for full 10 seconds -5b. Right Arm No drift; arm holds 90 (or 45 ) degrees for full 10 seconds -6a. Left Leg No drift; leg holds 30-degree position for full 5 seconds -6b. Right Leg No drift; leg holds 30-degree position for full 5 seconds -7. Limb Ataxia Absent -8. Sensory Normal; no sensory loss -9. Best Language No aphasia; normal -10. Dysarthria Normal -11. Extinction and Inattention No abnormality -Total 0 Query Text:A score of 0 is normal or asymptomatic. Total possible score is 42 . ED: Notify Physician for NIHSS increase by > / = 3 points. Inpatient: RN or Physician to activate a stroke alert for NIHSS increase of > / = 3 points. Coma Scale [Assess] -Eye Opening Spontaneous -Motor Obeys Commands -Verbal Oriented [Total] -Coma Scale Total 15 Lab / Micro Data 06/30/23 07:03 06/30/23 07:03 Labs: Laboratory Results - last 24 hr 06/29/23 16:30: WBC 13.8 H, RBC 4.37, Hgb 11.4 L, Hct 35.6 L, MCV 81.5, MCH 26.1 L, MCHC 32.0, RDW Std Deviation 44.7 H, RDW Coeff of Baudilio 14.9 H, Plt Count 712 H, MPV 9.5, Immature Gran % (Auto) 0.400, Neut % (Auto) 68.8, Lymph % (Auto) 21.4, Rutherford % (Auto) 7.3, Eos % (Auto) 1.7, Baso % (Auto) 0.4, Absolute Neuts (auto) 9.5 H, Absolute Lymphs (auto) 2.94, Nucleated RBC % 0, PT 13.0, INR 1.0, APTT 27.5, Sodium 138, Potassium 4.0, Chloride 109 H, Carbon Dioxide 21.0, Anion Gap 8, BUN 19 H, Creatinine 1.02, Estim Creat Clear Calc 48.17, Est GFR (MDRD) Af Amer 68, Est GFR (MDRD) Non-Af 56 L, BUN/Creatinine Ratio 18.6, Glucose 123 H, Calcium 9.2, Troponin I High Sens 8 06/30/23 07:03: WBC 10.4, RBC 3.82 L, Hgb 10.4 L, Hct 31.4 L, MCV 82.2, MCH 27.2, MCHC 33.1, RDW Std Deviation 45.6 H, RDW Coeff of Baudilio 15.3 H, Plt Count 592 H, MPV 9.1, Immature Gran % (Auto) 0.400, Neut % (Auto) 60.3, Lymph % (Auto) 27.7, Rutherford % (Auto) 8.1, Eos % (Auto) 3.0, Baso % (Auto) 0.5, Absolute Neuts (auto) 6.2, Absolute Lymphs (auto) 2.87, Nucleated RBC % 0, Sodium 139, Potassium 3.9, Chloride 111 H, Carbon Dioxide 24.0, Anion Gap 4 L, BUN 14, Creatinine 0.72, Estim Creat Clear Calc 63.03, Est GFR (MDRD) Af Amer 102, Est GFR (MDRD) Non-Af 84, BUN/Creatinine Ratio 19.5, Glucose 106, Hemoglobin A1c 6.1 H, Calcium 9.1, Triglycerides 124, Cholesterol 131, LDL Cholesterol 63, VLDL Cholesterol 25, HDL Cholesterol 43, TSH 4.99 H Imaging Radiology Impression Brain CT 06/29/23 16:34 IMPRESSION: Normal unenhanced CT scan of the brain. Electronically Signed: Wilder Nunez MD at 16:53 EST Reading Location ID and State: [facility] / [place] Tel , Service support , ADDENDUM: 06/29/23 1711 IMPRESSION: Normal unenhanced CT scan of the brain. N.B. : The above Results were Read Back by Wilder Nunez MD to Lazarus Flores MD, and understanding confirmed on 06/29/2023 17:04:27 (ET). Electronically Signed: Wilder Nunez MD at 16:53 EST Reading [facility] , Service support , Head/Neck CTA 06/29/23 16:35 IMPRESSION: Normal CTA Head and neck with contrast. Electronically Signed: Wilder Nunez MD at 17:17 EST Reading Location ID and State: [facility] / [place] Tel , Service support , ADDENDUM: 06/29/23 1729 IMPRESSION: Normal CTA Head and neck with contrast. N.B. : The above Results were Read Back by Wilder Nunez MD to Lazarus Flores MD, and understanding confirmed on 06/29/2023 17:22:46 (ET). Electronically Signed: Wilder Nunez MD at 17:17 EST Reading Location ID and State: [facility] / [place] Tel , Service support , Chest X-Ray 06/29/23 18:45 IMPRESSION: Left lower lobe subsegmental atelectasis versus small interstitial infiltrate Electronically Signed: Wilder Nunez MD at 19:54 EST Reading Location ID and State: [facility] / [place] Tel , Service support , Brain MRI 06/30/23 10:00 IMPRESSION: Normal MRI brain without contrast. Electronically Signed: Lazarus Conway MD at 11:40 EST , Active Medications Active Medications Active Medications: Current Medications Generic Name Dose Route Start Last Admin Trade Name Freq PRN Reason Stop Dose Admin Acetaminophen 650 mg 06/29/23 20:17 06/29/23 22:54 Acetaminophen 325 Mg Tablet PO 650 mg Q6H PRN PRN Administration Pain 1-10 Or Fever >100.7 Albuterol Sulfate 2.5 mg 06/29/23 20:17 Albuterol 2.5 Mg/3 Ml Vial.Neb. INHALATION Q2H PRN PRN SOB/Wheezing Aspirin 81 mg 06/30/23 08:00 06/30/23 09:39 Aspirin 81 Mg Tab.Chew PO 81 mg BREAKFAST SANAM Administration Atorvastatin Calcium 40 mg 06/29/23 22:00 06/29/23 22:56 Atorvastatin Calcium 40 Mg Tablet PO 40 mg QHS SANAM Administration Enoxaparin Sodium 40 mg 06/30/23 10:00 06/30/23 09:39 Enoxaparin 40 Mg/0.4 Ml Syringe SC 40 mg DAILY SANAM Administration Hydralazine HCl 5 mg 06/29/23 20:17 Hydralazine 20 Mg/Ml Vial IV Q30M PRN to maintain BP goals Sodium Chloride 250 mls @ 15 mls/hr 06/29/23 20:47 IV .[id number] PRN Additional IVPB Infusion Sodium Chloride 250 mls @ 15 mls/hr 06/29/23 20:47 IV .[id number] PRN Saline Flush Labetalol HCl 10 - 20 mg 06/29/23 20:17 Labetalol (Prefilled) 20 Mg/4 Ml IV Q10M PRN PRN to Maintain BP Goals Latanoprost 1 drp 06/29/23 22:45 06/29/23 22:55 Latanoprost 0.005% 1 Bottle OPHTHALMIC 1 drp QHS SANAM Administration Levothyroxine Sodium 50 mcg 06/30/23 06:00 06/30/23 06:21 Levothyroxine 50 Mcg Tablet PO 50 mcg 0600 SANAM Administration Melatonin 3 mg 06/29/23 20:17 Melatonin 3 Mg Tablet PO QHS PRN PRN INSOMNIA Ondansetron HCl 4 mg 06/29/23 20:17 Ondansetron 4 Mg/2 Ml Vial IV Q8H PRN PRN NAUSEA/VOMITING Senna/Docusate Sodium 2 tablet 06/29/23 20:17 Senna/Docusate Sodium 1 Tablet PO BID PRN PRN Constipation Sodium Chloride 10 - 40 ml 06/29/23 20:47 0.9% Saline Lock 10 Ml Syringe IV UD PRN SALINE FLUSH 06/30/23 1341 <Electronically signed by Sebastien Rosenthal MD> Cosigner Signature (if applicable): CC: Yu Moyer; Bela Covarrubias; Andrew Hernandez; Ca Low MD; Marci Taylor MD; Sebastien Rosenthal MD; Dr. Sandy Bahena MD; Dr. Petty Garza MD; Dr. Derian Cardona MD; Dr. Suzy Tobar MD; Dr. Karlos Almazan MD; Dr. Paul Jackson MD; Dr. Armin Moeller DO; Dr. Leisa Boland MD; Dr. Kiley Ratliff MD; Dr. Mimi Silvestre MD; Dr. Blanka Cooper MD; Dr. Alexis Linton MD; Dr. Aspen Floyd MD; Amy Garrido DO; Haroldo Busch MD~ Signed [facility] Work Phone: Evaluation note Note Date & Type Note Facility Evaluation note No assessment information availa ble [facility] Work Phone: Evaluation note Note Date & Type Note Facility Evaluation note Diagnosis Onset Date Dysarthria acute Expressive aphasia acute History of migraine acute Hypothyroid acute TIA (transient ischemic attack) acute [facility] Work Phone: Hospital Discharge instructions Note Date & Type Note Facility Hospital Discharge instructions Additional Instructions Continue taking the 2 pills of Senokot twice a day as well as daily MiraLAX and add in the lactulose as needed for the constipation until you have a couple of good bowel movements. You can decrease your laxatives starting with the lactulose and then the Senokot. The Bentyl (dicyclomine) should help with the spasm/cramping of your abdomen. If you do not have results or develop worsening pain or develop fever or blood in your stool please return to the emergency room. [facility] Work Phone: Chief Complaint and Reason for Visit Chief Complaint RIGHT KNEE PAIN Chief Complaint EORDER Chief Complaint EORDER SCREENING Chief Complaint EORDER SCREENING Unilateral primary osteoarthritis, right knee PREOP Chief Complaint SCREENING Unilateral primary osteoarthritis, right knee PREOP constipation Chief Complaint SCREENING Unilateral primary osteoarthritis, right knee PREOP constipation TIA W/U Reason for Visit Dysarthria Expressive aphasia History of migraine Hypothyroid TIA (transient ischemic attack) Advance Directives No Advanced Directives Records Found Advance Directive Response Recorded Date/ Time Living Will Yes November 08, 2020 1 2:27pm Power of [employer] Yes November 08, 2020 12:27pm Advance Directive Response Recorded Date/ Time Living Will Yes February 11 2 2:00pm Power of [employer] Yes February 11, 022 2:00pm Advance Directive Response Recorded Date/ Time Living Will Yes February 11 2 1:00pm Power of [employer] Yes February 11, 022 1:00pm Advance Directive Response Recorded Date/ Time Name of Medical Power of [employer] spouse June 24, 2023 9:04am Living Will Yes June 24 024 9:04am Power of [employer] Yes June 24, 2023 9:04am Advance Directive Response Recorded Date/ Time Name of Medical Power of [employer] spouse June 24, 2023 9:04am Name of Medical Power of [employer] , June 29, 2023 4:39pm Living Will Yes June 29, 024 4:39pm Power of [employer] Yes June 29, 2023 4:39pm Advance Directive Response Recorded Date/ Time Name of Medical Power of [employer] spouse June 24, 2023 9:04am Name of Medical Power of [employer] milady Fleming June 29, 2023 8:08pm Living Will Yes June 29, 024 8:08pm Power of [employer] Yes June 29, 2023 8:08pm Family History No Family History Records Found Relationship Condition Age at Onset Recorded Date/T yohana sister Malignant neoplasm of breast Unknown mother Cerebrovascular accident (CVA) Unknown father Pulmonary emphysema Unknown brother Cerebrovascular accident (CVA) Unknown Summary Purpose Additional Source Comments Goals (unrecognized section and content) Goals may be documented in a n alternate sectionGoals may be documented in an alternate sectionGoals may be documented in an alternate sectionGoals may be documented in an alternate sectionGoals may be documented in an alternate sectionGoals may be documented in an alternate sectionGoals may be documented in an alternate sectionGoals may be documented in an alternate section Care Teams (unrecognized sec tion and content) Team Status: Active Member Role Status Dates Dr. Petty Garza MD Family Provider Active Dr. Petty Garza MD Primary Care Provider Active Team Status: Inactive Member Role Status Dates Dr. Petty Garza MD Primary Care Prov ider, Attending Provider, Referring Provider Active Team Status: Active Member Role Status Dates Dr. Petty Garza MD Primary Care Provider Active Dr. Jerod Renee MD Attending Provider Active Dr. Lázaro Solitario MD Referring Provider Active Team Status: Inactive Member Role Status Dates Dr. Petty Garza MD Primary Care Provider Active Dr. Lázaro Solitario MD Attending Provider, Referring P rovider Active Team Status: Inactive Member Role Status Dates Dr. Petty Garza MD Primary Care Provider Active Dr. Jennifer Brown DO Emergency Provider Active Team Status: Inactive Member Role Status Dates Dr. Petty Garza MD Primary Care Provider Active Dr. Jennifer Brown DO Attending Provider, Emergency P rovider Active Team Status: Active Member Role Status Dates Dr. Petty Garza MD Primary Care Provider Active Lazarus Flores MD Emergency Provider Active Dr. Mimi Silvestre MD Admit Provider, At tending Provider, Referring Provider Active Team Status: Active Member Role Status Dates Dr. Petty Garza MD Primary Care Provider Active Dr. Jerod Renee MD Attending Provider Active Team Status: Inactive Member Role Status Dates Dr. Petty Garza MD Primary Care Provider Active Lazarus Flores MD Emergency Provider Active Dr. Mimi Silvestre MD Admit Provider, Re ferring Provider, Other Provider Active Sebastien Rosenthal MD Other Provider Active Dr. Sandy Bahena MD Other Provider Active Marci Taylor MD Other Provider Active Dr. Yu Moyer DO Other Provider Active Dr. Ca Low MD Other Provider Active Dr. Derian Cardona MD Other Provider Active Dr. Suzy Tobar MD Other Provider Active Dr. Paul Jackson MD Other Provider Active Dr. Karlos Almazan MD Other Provider Active Amy Garrido MD Other Provider Active Dr. Armin Moeller MD Other Provider Active Dr. Bela Covarrubias MD Other Provider Active Dr. Kiley Ratliff MD Other Provider Active Dr. Leisa Boland MD Other Provider Active Dr. Andrew Mcwilliams MD Other Provider Active Dr. Blanka Cooper MD Other Provider Active Dr. Alexis Linton MD Other Provider Active Dr. Aspen Floyd MD Other Provider Active Haroldo Busch MD Other Provider Active Dr. Jovan Rodriguez MD Attending Provider Active INFORMATION SOURCE (unrecogn ized section and content) DATE CREATED AUTHOR 03/16/2025 [facility] FOR RECORDS PERTAINING TO PATIENTS WHO ARE OR HAVE BEEN ENROLLED IN A CHEMICAL DEPENDENCY/SUBSTANCEABUSE PROGRAM, SOME INFORMATION MAY BE OMITTED. This clinical summary was aggregated from multiple sources. Caution should be exercised in using it in the provision of clinical care. This summary normalizes information from multiple sources, and as a consequence, information in this document may materially change the coding, format and clinical context of patient data. In addition, data may be omitted in some cases. CLINICAL DECISIONS SHOULD BE BASED ON THE PRIMARY CLINICAL RECORDS. [facility]. provides no warranty or guarantee of the accuracy or completeness of information in this document.
== END | disposition home or self-care (01) ==
LOC: OPBI 13:48
PROVIDERS: PCP Family Medicine; Referring Provider Family Medicine; Visit Provider Family Medicine
DX: Z12.31 Encounter for screening mammogram for malignant neoplasm of breast (principal)
CPT/HCPCS: 77063; 77067